=== PATIENT | female | born 1965 | race Caucasian/White ===

== ENCOUNTER 2024-09-22 01:53 | Inpatient (IN) | payer MEDICAID ==
[~2024-09-22] VITALS: Ht 162.6 cm; Wt 65.1 kg
[2024-09-22] VITALS (9 sets, daily range): BP systolic 113–129; BP diastolic 59–64; PULSE 74–103; RESP 0–20; TEMP 97.7–98.3; O2SAT 90–100
[2024-09-22 02:54] LABS: Basophils # (auto) 0.1 10 ^3/uL (0-0.2); Basophils % (auto) 0.6 % (0.0-2.0); Eosinophils # (auto) 0.1 10 ^3/uL (0-0.8); Eosinophils % (auto) 1.3 % (0.0-7.0); Hematocrit 38.7 % (36.0-46.0); Hemoglobin 12.7 g/dL (12.2-16.2); Lymphocytes # (auto) 4.1 10 ^3/uL (0.4-5.4); Lymphocytes % (auto) 42.9 % (10.0-50.0); Mean Corpuscular Hemoglobin 27.5 pg (28.0-32.0); Mean Corpuscular Hgb Conc. 32.8 g/dL (32.0-36.0); Mean Corpuscular Volume 83.8 fL (80.0-100.0); Monocytes # (auto) 0.8 10 ^3/uL (0-1.3); Monocytes % (auto) 8.2 % (0.0-12.0); Neutrophils # (auto) 4.5 10 ^3/uL (1.6-8.6); Platelet Count (auto) 283 10^3/uL (140-450); Red Blood Cells 4.62 10^6/uL (4.0-5.20); Red Cell Distribution Width 16.5 % (11.8-14.3); White Blood Cell 9.7 10^3/uL (4.4-10.8)
--- NOTE | 2024-09-22 02:56 | ED.PDOC ---
HPI Comments 58-year-old female who came to emergency room via EMS for weakness. Patient has had extensive cardiac history, including hypertension, diabetes, [place], status post CABG and cardiac stents. Patient went to [facility] earlier complaining of chest pains and weakness. Diagnostics were made, noted elevated D-dimer and BNP levels. Patient is transferred to this institution for further management. Chief Complaint: General Weakness Time Seen by MD: 02:56 Reviewed Notes: Blood Coordinator Notes Allergies: Coded Allergies: Atorvastatin (Verified Allergy, Unknown, 09/22/24) Information Source: Patient, Emergency Med Personnel Mode of Arrival: EMS Severity: Moderate Timing: Hours Duration: Since onset Prehospital treatment: None Location: Substernal Radiation: No Radiation Quality: Pressure Onset: With Light Exertion Cardiac Risk Factors: HTN, Diabetes PE Risk Factors: None History of: Similar pain in past Associated Signs and Symptoms: SOB Past Medical History PAST MEDICAL HISTORY: DM, HTN, MT Surgical History: CABG, PTCA 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: 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 all 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 Hx Family History Family History: Reviewed,noncontributory to illness Social History Smoker: Non-Smoker Alcohol: Denies ETOH Use Drugs: Denies Drug Use Lives In: Home Constitutional: denies: chills, diaphoresis, fatigue, fever, malaise, sweats, weakness, others EENTM: denies: blurred vision, double vision, ear bleeding, ear discharge, ear drainage, ear pain, ear ringing, eye pain, eye redness, hearing loss, mouth pain, mouth swelling, nasal discharge, nose bleeding, nose congestion, nose pain, photophobia, tearing, throat pain, throat swelling, voice changes, others Respiratory: reports: SOB at rest, shortness of breath; denies: cough, hemoptysis, orthopnea, SOB with excertion, stridor, wheezing, others Cardiovascular: reports: chest pain; denies: dizzy spells, diaphoresis, Dyspnea on exertion, edema, irregular heart beat, left arm pain, lightheadedness, palpitations, PND, syncope, others Gastrointestinal: denies: abdomen distended, abdominal pain, blood streaked bowels, constipated, diarrhea, dysphagia, difficulty swallowing, hematemesis, melena, nausea, poor appetite, poor fluid intake, rectal bleeding, rectal pain, vomiting, others Genitourinary: denies: abnormal vagina bleeding, burning, dyspareunia, dysuria, flank pain, frequency, hematuria, incontinence, pain, , vagina discharge, urgency, others Neurological: denies: dizziness, fainting, headache, left sided numbness, left sided weakness, numbness, paresthesia, pre-existing deficit, right sided numbness, right sided weakness, seizure, speech problems, tingling, tremors, weakness, others Musculoskeletal: denies: back pain, gout, joint pain, joint swelling, muscle pain, muscle stiffness, neck pain, others Integumetry: denies: bruises, change in color, change in hair/nails, dryness, laceration, lesions, lumps, rash, wounds, others Allergic/Immunocompromised: denies: Difficulty Healing, Frequent Infections, Hives, Itching, others Hematologic/Lymphatic: denies: anemia, blood clots, easy bleeding, easy bruising, swollen glands, others Endocrine: denies: excessive hunger, excessive sweating, excessive thirst, excessive urination, flushing, intolerance to cold, intolerance to heat, unex plained weight gain, unexplained weight loss, others Psychiatric: denies: anxiety, bipolar disorder, depression, hopeless, panic disorder, schizophrenia, sleepless, suicidal, others Physical Exam General Appearance: No Apparent Distress, Normal HEENT: Normal ENT Inspection, Pharynx Normal, TMs Normal Neck: Full Range of Motion, Non-Tender, Normal, Normal Inspection Respiratory: Chest Non-Tender, Lungs Clear, No Accessory Muscle Use, No Respiratory Distress, Normal Breath Sounds Cardiovascular: No Edema, No JVD, No Murmur, No Gallop, Normal Peripheral Pulses, Regular Rate/Rhythm Breast Exam: Deferred Gastrointestinal: No Organomegaly, Non Tender, No Pulsatile Mass, Normal Bowel Sounds, Soft Genitalia: Deferred Pelvic: Deferred Rectal: Deferred Extremities: No calf tenderness, Normal capillary refill, Normal inspection, Normal range of motion, Non-tender, No pedal edema Musculoskeletal : Apperance: Normal Neurologic: Alert, open source developer II-XII nml as Tested, No Motor Deficits, Normal Affect, Normal Mood, No Sensory Deficits Cerebellar Function: Normal Reflexes: Normal Skin: Dry, Normal Color, Warm Lymphatic: No Adenopathy EKG EKG : Pulse Rate (adult): 77 Cardiac Rhythm: NSR Hypertrophy: LAE, LAI Was a procedure done? Was a procedure done?: No CP Differential Dx Differential Diagnosis: Angina, Anxiety / Panic Attack Differential Diagnosis: CHF Differential Diagnosis: Angina, Chest Wall Pain, Costochondritis, Esophageal r eflux/spasm, Gastritis, Myocardial Infarction X-Ray, Labs, Meds, VS Vital Signs Date Time Temp Pulse Resp B/P (MAP) Pulse Ox O2 Delivery O2 Flow Rate FiO2 09/22/24 04:45 86 16 105/55 (72) 95 09/22/24 04:00 89 09/22/24 04:00 89 18 98/48 (65) 99 09/22/24 03:38 74 16 99 Room Air* 0 21 09/22/24 02:56 77 09/22/24 02:30 98.1 74 16 94/51 (65) 99 98.1 09/22/24 02:13 77 09/22/24 02:00 98.7 77 20 98/67 (77) 99 Lab Test 09/22/24 03:37 09/22/24 02:40 Range/Units Troponin I High Sensitivity 56 *H 66 *H </=34 ng/L White Blood Count 9.7 4.4-10.8 10^3/uL Red Blood Count 4.62 4.0-5.20 10^6/uL Hemoglobin 12.7 12.2-16.2 g/dL Hematocrit 38.7 36.0-46.0 % Mean Corpuscular Volume 83.8 80.0-100.0 fL Mean Corpuscular Hemoglobin 27.5 L 28.0-32.0 pg Mean Corpuscular Hemoglobin Concent 32.8 32.0-36.0 g/dL Red Cell Distribution Width 16.5 H 11.8-14.3 % Platelet Count 283 140-450 10^3/uL Mean Platelet Volume 8.8 6.9-10.8 fL Neutrophils (%) (Auto) 47.0 37.0-80.0 % Lymphocytes (%) (Auto) 42.9 10.0-50.0 % Monocytes (%) (Auto) 8.2 0.0-12.0 % Eosinophils (%) (Auto) 1.3 0.0-7.0 % Basophils (%) (Auto) 0.6 0.0-2.0 % Neutrophils # (Auto) 4.5 1.6-8.6 10 ^3/uL Lymphocytes # (Auto) 4.1 0.4-5.4 10 ^3/uL Monocytes # (Auto) 0.8 0-1.3 10 ^3/uL Eosinophils # (Auto) 0.1 0-0.8 10 ^3/uL Basophils # (Auto) 0.1 0-0.2 10 ^3/uL Nucleated Red Blood Cells 0.0 % Sodium Level 139 136-145 mmol/L Potassium Level 3.6 3.5-5.1 mmol/L Chloride Level 106 98-107 mmol/L Carbon Dioxide Level 21 20-31 mmol/L Anion Gap 12 5-15 Blood Urea Nitrogen 15 9-23 mg/dL Creatinine 1.08 H 0.550-1.02 mg/dL Glomerular Filtration Rate Calc 59 >90 mL/min BUN/Creatinine Ratio 13.9 10.0-20.0 Serum Glucose 139 H 74-106 mg/dL Calcium Level 10.8 H 8.7-10.4 mg/dL B-Type Natriuretic Peptide 566.28 0-100 pg/mL Time of 1ST Reevaluation: 02:52 Reevaluation 1ST: Unchanged Patient Education/Counseling: Diagnosis, Treatment Family Education/Counseling: No Family Present Departure 1 Departure Time of Disposition: 04:59 (Patient presented with chest pain that was concerning for possible STEMI, ACS, PE, Pneumonia, Muscle Strain, COPD, Dissection. Data: 1. I ordered and reviewed the result of at least 3 labs including a CBC, BMP, and Troponin. 2. I independently interpreted the following tests: EKG which shows sinus arrhythmia and Chest X-ray which shows benign chest.Risk:This patient has a high risk of morbidity due to further diagnostic testing or treatment and may suffer from an acute cardiac or respiratory disorder. Workup reveals concern for ACS and patient should be admitted for further workup and possible expert consultation. ) Impression: Primary Impression: Acute chest pain Additional Impressions: Shortness of breath Generalized weakness Disposition: ADMITTED INPATIENT Admit to: Med Surg Condition: Serious Critical Care Note Critical Care Time?: Yes (35 min-critical care time only) Critical care comment: Acute chest pain Authorized and Performed by: Natalio Fish MD Total critical care time: Approximately 38 minutes Due to a high probability of clinically significant, life threatening deterioration, the patient required my highest level of preparedness to intervene emergently and I personally spent this critical care time directly and personally managing the patient. This critical care time included obtaining a history; examining the patient; pulse oximetry; ordering and review of studies; arranging urgent treatment with development of a management plan; evaluation of patient's response to treatment; frequent reassessment; and, discussions with other providers. This critical care time was performed to assess and manage the high probability of imminent, life-threatening deterioration that could result in multi-organ failure. It was exclusive of separately billable procedures and treating other patients and teaching time. Please see my other sections and the rest of the note for further information on patient assessment and treatment. Stability Stability form required: No Heart Score Heart Score: Heart Score Response (Comments) Value History Moderate Suspicious 1 EKG Repolarization Disturb 1 Age 45-64 1 Risk Factors >3 or Hx ASHD 2 Troponin Normal limit 0 Total 5 I personally scribed for NATALIO FISH MD ([email or web address]) on 09/22/24 at 02:56. Electronically submitted by Amish Morris ([facility]). NATALIO FISH MD Sep 22, 2024 02:56
[2024-09-22 04:10] LABS: Chloride 106 mmol/L (98-107); Potassium 3.6 mmol/L (3.5-5.1); Sodium 139 mmol/L (136-145)
[2024-09-22 04:11] LABS: Anion Gap 12 (5-15); Carbon Dioxide 21 mmol/L (20-31)
[2024-09-22 04:16] LABS: BUN/Creatinine Ratio 13.9 (10.0-20.0); Blood Urea Nitrogen 15 mg/dL (9-23)
[2024-09-22 04:17] LABS: Calcium 10.8 mg/dL (8.7-10.4); Glucose 139 mg/dL (74-106)
--- NOTE | 2024-09-22 04:34 | DVH ---
CHEST RADIOGRAPH Indication: chest pain Technique: Single frontal view of the chest was obtained Comparison: 09/21/2024 FINDINGS: Lines and Tubes: None Lungs: No focal consolidation. Pleura: No effusion. No pneumothorax. Cardiomediastinal contours: Unremarkable Bones: No acute osseous abnormality. Status post median sternotomy. IMPRESSION: 1. No acute cardiopulmonary disease.
[2024-09-22] MEDS ORDERED: DEXTROSE (50%) 50ML SYRG IV PRN (09:15)
[2024-09-22] MEDS ORDERED: ONDANSETRON HCL 4 MG/2 ML VIAL IV PRN (09:15)
[2024-09-22] MEDS ORDERED: MORPHINE SULFATE 4 MG/ML SYR/VIAL IV PRN (09:15)
--- NOTE | 2024-09-22 09:34 | DVHHP2 ---
History of Present Illness Reason for Visit: Chest pain History of Present Illness Shanna Francis is a 58-year-old female with past medical history of hypertension, hyperlipidemia, diabetes, [place] status post CABG x3 PTCA in 2023 at [facility] who presents to the ED for chest pain x1 day and general weakness. Patient was at [facility] [place] and was transferred over to [facility]. Patient reports pain 7/10 intermittent and pressure-like. Patient reports that she had taken some nitro at her physician's office with some relief. Patient also reports that she has a manager medical writing in [place] in his appointment next month. Patient denies any shortness of breath, abdominal pain, nausea, vomiting, diarrhea, fever, chills, lightheadedness, and dizziness. Cardiovascular: CHF, HTN, [place], hyperipidemia Endocrine: Diabetes Past Medical History Peripheral neuropathy Past Surgical History: CABG Family History: None Smoke: <1 pack per day ALCOHOL: none Drugs: None Lives: with Family Domestic Violence: Neg Review of Systems Constitutional: Yes: Weakness; No: Fever, Chills, Sweats, Malaise, Other Eyes: No: Pain, Vision change, Conjunctivae inflammation, Eyelid inflammation, Other, Redness ENT: No: Ear pain, Ear discharge, Nose pain, Nose discharge, Nose congestion, Mouth pain, Mouth swelling, Throat pain, Throat swelling, Other Respiratory: No: Cough, Dry, Shortness of breath, SOB with excertion, Wheezing, Hemoptysis, Pleuritic Pain, Sputum, Wheezing, Other Cardiovascular: Chest Pain; No: Palpitations, Orthopnea, Paroxysmal Noc. Dyspnea, Edema, Lt Headedness, Other Gastrointestinal: No: Nausea, Vomiting, Abdominal Pain, Diarrhea, Constipation, Melena, Hematochezia, Other Genitourinary: No Dysuria, No Frequency, No Incontinence, No Hematuria, No Retention, No Other Musculoskeletal: No: other, neck pain, shoulder pain, arm pain, back pain, hand pain, leg pain, foot pain Skin: No: Rash, Lesions, Jaundice, Bruising, Other Neurological: No: Weakness, Numbness, Incoordination, Change in speech, Confusion, Seizures, Other Allergies: Coded Allergies: Atorvastatin (Verified Allergy, Unknown, 09/22/24) Exam Vital Signs Vital Signs Date Time Temp Pulse Resp B/P (MAP) Pulse Ox O2 Delivery O2 Flow Rate FiO2 09/22/24 06:00 74 16 97/57 (70) 98 09/22/24 03:38 Room Air* 0 21 09/22/24 02:30 98.1 98.1 General Appearance: Alert, Oriented X3, Cooperative, No acute distress HEENT: Atraumatic, PERRLA, EOMI, Mucous membr. moist/pink Respiratory: Normal air movement Cardiovascular: Regular rate, Normal S1, Normal S2, No murmurs Abdominal: Normal bowel sounds, Soft, No tenderness, No hepatospenomegaly, No masses Extremities: No clubbing, No cyanosis, No edema, Normal pulses, No tenderness/swelling Skin: No rashes, No breakdown, No significant lesion Neuro: Normal gait, Normal speech, Strength at 5/5 X4 ext, Normal tone, Sensation intact Psych/Mental Status: Mental status NL, Mood NL Labs/Xrays Labs Test 09/22/24 05:47 09/22/24 02:40 Range/Units Troponin I High Sensitivity 59 *H </=34 ng/L White Blood Count 9.7 4.4-10.8 10^3/uL Red Blood Count 4.62 4.0-5.20 10^6/uL Hemoglobin 12.7 12.2-16.2 g/dL Hematocrit 38.7 36.0-46.0 % Mean Corpuscular Volume 83.8 80.0-100.0 fL Mean Corpuscular Hemoglobin 27.5 L 28.0-32.0 pg Mean Corpuscular Hemoglobin Concent 32.8 32.0-36.0 g/dL Red Cell Distribution Width 16.5 H 11.8-14.3 % Platelet Count 283 140-450 10^3/uL Mean Platelet Volume 8.8 6.9-10.8 fL Neutrophils (%) (Auto) 47.0 37.0-80.0 % Lymphocytes (%) (Auto) 42.9 10.0-50.0 % Monocytes (%) (Auto) 8.2 0.0-12.0 % Eosinophils (%) (Auto) 1.3 0.0-7.0 % Basophils (%) (Auto) 0.6 0.0-2.0 % Neutrophils # (Auto) 4.5 1.6-8.6 10 ^3/uL Lymphocytes # (Auto) 4.1 0.4-5.4 10 ^3/uL Monocytes # (Auto) 0.8 0-1.3 10 ^3/uL Eosinophils # (Auto) 0.1 0-0.8 10 ^3/uL Basophils # (Auto) 0.1 0-0.2 10 ^3/uL Nucleated Red Blood Cells 0.0 % Sodium Level 139 136-145 mmol/L Potassium Level 3.6 3.5-5.1 mmol/L Chloride Level 106 98-107 mmol/L Carbon Dioxide Level 21 20-31 mmol/L Anion Gap 12 5-15 Blood Urea Nitrogen 15 9-23 mg/dL Creatinine 1.08 H 0.550-1.02 mg/dL Glomerular Filtration Rate Calc 59 >90 mL/min BUN/Creatinine Ratio 13.9 10.0-20.0 Serum Glucose 139 H 74-106 mg/dL Calcium Level 10.8 H 8.7-10.4 mg/dL B-Type Natriuretic Peptide 566.28 0-100 pg/mL CHEST RADIOGRAPH Indication: chest pain Technique: Single frontal view of the chest was obtained Comparison: 09/21/2024 FINDINGS: Lines and Tubes: None Lungs: No focal consolidation. Pleura: No effusion. No pneumothorax. Cardiomediastinal contours: Unremarkable Bones: No acute osseous abnormality. Status post median sternotomy. IMPRESSION: 1. No acute cardiopulmonary disease. Assessment/Plan Assessment/Plan Assessment/Plan: Chest pain rule out cardiac ischemia Labs Chest x-ray noted Tropes BNP EKG Lasix UDS TSH Lipid Echo Cardiology consult Strict Is&Os GDMT for heart failure Daily weights Fluid restriction ACS protocol Dual antiplatelet therapy and lipid-lowering agent Nuclear stress test per Cardiology Diabetes type 2 Hemoglobin A1c ISS and Accu-Cheks Chronic hypertension Continue home medications Chronic hyperlipidemia continue home medications History of CHF Continue home medications Tobacco use Counseled patient on cessation of tobacco Offered nicotine patch, patient declined FEN/PPX cardiac diet hl DVT prophylaxis-not indicated patient ambulating PUD prophylaxis Protonix home medications reconciled discussed plan of care with patient and nurse Admit to tele Plan discussed with: Patient My Orders Orders - YULIANA AMOS BUSINESS SYSTEMS ADMINISTRATOR Procedure Category Date Status Time Furosemide Injection PHA 09/22/24 Transmitted (Lasix Injection) 10:00 Code Status CODE 09/22/24 Transmitted 09:06 Vital Signs MIRIAM 09/22/24 Transmitted 09:06 Color Developer MIRIAM 09/22/24 Transmitted 09:06 Morphine Sulfate PHA 09/22/24 Transmitted Injection 09:15 Complete Blood Count LAB 09/23/24 Verified 04:00 Comprehensive LAB 09/23/24 Verified Metabolic Panel 04:00 Magnesium LAB 09/23/24 Verified 04:00 Echo 2d Mode Cardiac US 09/22/24 Transmitted DOP 09:06 Ondansetron Hcl PHA 09/22/24 Transmitted (Zofran) 09:15 Electrocardigram EKG 09/23/24 Transmitted 04:00 Troponin-I Hs LAB 09/22/24 Transmitted 09:06 Cardiac MIRIAM 09/22/24 Transmitted Rehabilitation - Outpa Admit ADMIT 09/22/24 Transmitted 09:06 Npo Except For MIRIAM 09/22/24 Transmitted Medications 09:06 * Cardiology Consult CONS 09/22/24 Transmitted 09:06 Drug Screen LAB 09/22/24 Transmitted 09:06 Thyroid Stimulating LAB 09/22/24 Transmitted Hormone 09:06 Lipid Panel LAB 09/22/24 Transmitted 09:06 Hemoglobin A1c LAB 09/22/24 Transmitted 09:06 Glucose Blood PHA 09/22/24 Transmitted (Accu-Chek Comfort 11:30 Mild Sliding Scale PHA 09/22/24 Transmitted 11:30 Dextrose 50% Syringe PHA 09/22/24 Transmitted 09:15 Date of Service: Sep 22, 2024 Billing Provider: YULIANA AMOS Common Visit Codes: [id number] INP/OBS CARE (HIGH) YULIANA AMOS Sep 22, 2024 09:34
[2024-09-22 09:54] LABS: Triglycerides 115 mg/dL (< 150)
[2024-09-22 09:55] LABS: LDL Cholesterol 60 mg/dL (< 100)
[2024-09-22 09:56] LABS: Cholesterol 117 mg/dL (< 200); HDL Cholesterol 41 mg/dL (40-59)
[2024-09-22 10:43] LABS: Amphetamine Screen, Urine Neg (NEGATIVE)
[2024-09-22 10:44] LABS: Benzodiazephine Screen, Urine Neg (NEGATIVE)
[2024-09-22 10:45] LABS: Opiate Scree,Urine Neg (NEGATIVE)
[2024-09-22] MEDS: FUROSEMIDE 40 MG/4 ML VIAL IV SCH ×2 (10:46→18:03)
[2024-09-22 10:51] LABS: Barbiturate Scree,Urine Neg (NEGATIVE); Cannabinoid Screen, Urine Neg (NEGATIVE); Cocaine Screen, Urine Neg (NEGATIVE); Phencyclidine Screen, Urine Neg (NEGATIVE)
--- NOTE | 2024-09-22 11:29 | DVHINCON2 ---
Date Seen: Sep 22, 2024 Referring Physician DARLIN Whitaker Reason for Consultation chest pain, PTCA X 3 CHE History of Present Illness This is a 58-year-old female patient who presents to the emergency room with chief complaint of chest pain. The patient reports that the chest began yesterday. She states that she went to Dr. Hoffman's walk-in clinic in [place] for further assessment. From there, she was transferred to [facility]. She has now been transferred to this facility for higher level of care. She describes the chest pain as unprovoked, pressure-like in nature, midsternal with radiation to the left side of her chest as well as down her left arm. Associated symptoms include shortness of breath. Initial twelve lead electrocardiogram reveals normal sinus rhythm with left bundle branch block and Q-waves seen in anterior leads. Initial troponin level of 66ng/L with down trend thereafter. Significant past medical history includes severe coronary artery disease status post triple-vessel CABG, multiple PTCAs x3 CHE (on ASA/Plavix), congestive heart failure, history myocardial infarction, hyperlipidemia, type 2 diabetes mellitus, peripheral neuropathy, and tobacco use. The patient reports that she follows up with a insole rounder in the outpatient setting at [facility]. She reports that she has a follow up appointment pending on October 10, 2024 to discuss possible ICD implantation. Past Medical History Past medical history reviewed. No other significant than mentioned above. Past Surgical History Triple-vessel CABG in October 2023 Family History Family history reviewed. Social History The patient has a 25 pack-year history, states she occasionally smokes "a few cigarettes per week" now Patient denies any illicit drug use Patient denies any alcohol use Allergies: Coded Allergies: Atorvastatin (Verified Allergy, Unknown, 09/22/24) Home Meds Home medications reviewed. Current Medications Current Medications Medications (Trade) Dose Ordered Sig/Jarett Route PRN Reason Start Time Stop Time Status Last Admin Furosemide (Lasix Injection) 40 mg DAILY IV 09/22/24 10:00 09/22/24 10:46 Morphine Sulfate 2 mg Q30MP PRN IV FOR CHEST PAIN 09/22/24 09:15 Ondansetron HCl (Zofran) 4 mg Q4HP PRN IV NAUSEA / VOMITING 09/22/24 09:15 Diagnostic Test (Pha) (Accu-Chek Comfort Curve T) 1 strip ACHS 09/22/24 11:30 Insulin Human Regular (InsuLIN R) ACHS SC 09/22/24 11:30 Dextrose 50 ml UD PRN IV Blood Sugar LESS THAN 60 09/22/24 09:15 Review of Systems Constitutional: No symptom reported Ears, Nose, & Throat: No symptom reported Eyes: No symptom reported Neurological: No symptoms reported Pulmonary/Respiratory: Shortness of breath Cardiovascular: Chest pain Gastrointestinal: No symptom reported Genitourinary: No symptom reported Musculoskeletal: No symptom reported Skin: No symptom reported Psychiatric: No symptom reported Endocrine: No symptom reported Hematologic/Lymphatic: No symptom reported Vital Signs Vital Signs Date Time Temp Pulse Resp B/P (MAP) Pulse Ox O2 Delivery O2 Flow Rate FiO2 09/22/24 10:46 103/58 09/22/24 09:44 84 16 99 Room Air* 0 21 09/22/24 09:41 98.4 98.4 Physical Exam General Appearance: Cooperative. Well-developed. Well-nourished. No acute distress. Pulmonary/Respiratory: Clear, bilateral breaths sounds. Cardiovascular/Chest: Regular rate and rhythm. Peripheral Pulses: 2+ Radial (R). 2+ Radial (L). 2+ Pedal (R). 2+ Pedal (L) Abdominal Exam: Normal bowel sounds. Ankle Exam: Negative ankle edema Lower extremities: Negative lower extremity edema Neuro/Mental Status: A/OX4, coherent. Thoughts/Psych: Normal thought pattern. Appropriate mood and affect. Good judgment and insight. Appearance: No acute distress. Skin Exam: Normal inspection. Normal color. Warm and dry. Labs/Diagnostic Data Labs Test 09/22/24 09:48 09/22/24 05:47 09/22/24 02:40 Range/Units Urine Opiates Screen Neg NEGATIVE Urine Fentanyl Screen Neg NEGATIVE Urine Barbiturates Screen Neg NEGATIVE Urine Phencyclidine Screen Neg NEGATIVE Urine Amphetamines Screen Neg NEGATIVE Urine Benzodiazepines Screen Neg NEGATIVE Urine Cocaine Screen Neg NEGATIVE Urine Cannabinoids Screen Neg NEGATIVE Troponin I High Sensitivity 59 *H </=34 ng/L White Blood Count 9.7 4.4-10.8 10^3/uL Red Blood Count 4.62 4.0-5.20 10^6/uL Hemoglobin 12.7 12.2-16.2 g/dL Hematocrit 38.7 36.0-46.0 % Mean Corpuscular Volume 83.8 80.0-100.0 fL Mean Corpuscular Hemoglobin 27.5 L 28.0-32.0 pg Mean Corpuscular Hemoglobin Concent 32.8 32.0-36.0 g/dL Red Cell Distribution Width 16.5 H 11.8-14.3 % Platelet Count 283 140-450 10^3/uL Mean Platelet Volume 8.8 6.9-10.8 fL Neutrophils (%) (Auto) 47.0 37.0-80.0 % Lymphocytes (%) (Auto) 42.9 10.0-50.0 % Monocytes (%) (Auto) 8.2 0.0-12.0 % Eosinophils (%) (Auto) 1.3 0.0-7.0 % Basophils (%) (Auto) 0.6 0.0-2.0 % Neutrophils # (Auto) 4.5 1.6-8.6 10 ^3/uL Lymphocytes # (Auto) 4.1 0.4-5.4 10 ^3/uL Monocytes # (Auto) 0.8 0-1.3 10 ^3/uL Eosinophils # (Auto) 0.1 0-0.8 10 ^3/uL Basophils # (Auto) 0.1 0-0.2 10 ^3/uL Nucleated Red Blood Cells 0.0 % Sodium Level 139 136-145 mmol/L Potassium Level 3.6 3.5-5.1 mmol/L Chloride Level 106 98-107 mmol/L Carbon Dioxide Level 21 20-31 mmol/L Anion Gap 12 5-15 Blood Urea Nitrogen 15 9-23 mg/dL Creatinine 1.08 H 0.550-1.02 mg/dL Glomerular Filtration Rate Calc 59 >90 mL/min BUN/Creatinine Ratio 13.9 10.0-20.0 Serum Glucose 139 H 74-106 mg/dL Hemoglobin A1c 7.5 H <5.7 % A1C Calcium Level 10.8 H 8.7-10.4 mg/dL B-Type Natriuretic Peptide 566.28 0-100 pg/mL Triglycerides Level 115 < 150 mg/dL Cholesterol Level 117 < 200 mg/dL LDL Cholesterol 60 < 100 mg/dL HDL Cholesterol 41 40-59 mg/dL Thyroid Stimulating Hormone (TSH) 0.01 L 0.55-4.78 uIU/mL Assessment Chest pain, rule out progressive coronary artery disease Severe coronary artery disease status post triple-vessel CABG in 2023 Multiple PTCAs x3 CHE (on Plavix/aspirin) Acute on chronic decompensated HFrEF, NYHA class III Mitral valve regurgitation, moderate to severe degree Tricuspid valve regurgitation, mild to moderate degree History myocardial infarction Hyperlipidemia Type 2 diabetes mellitus Tobacco use Plan/Recommendation We will continue with the following plan/recommendations (): * Transthoracic echocardiogram reveals EF 20% * Initiate guideline directed medical therapy for CHF (as tolerated by BP) * Strict intake and output, daily weights, maintain fluid restriction * Chest pain protocol * TAINA score: 5 points * HEART score: 5 points * Continue dual antiplatelet therapy and lipid-lowering agent * Nuclear stress test Patient seen and examined at bedside with . Given the patient's cardiac history and clinical presentation, we will recommend for the patient to undergo a Cardiolite stress test. Procedure explained to patient and she is agreeable. We will schedule the patient at soonest availability. Thank you for allowing us to care for this patient. Please call with any questions or concerns. Critical care time spent: 42 minutes This medical document was created using an electronic medical record system with voice recognition software and computerized dictation system. Although this document has been carefully reviewed, there might still be some phonetic and typographical errors. Occasional wrong-word or ``sound-alike substitutions may have occurred due to the inherent limitations of voice recognition software. These areas are purely typographical due to imperfections of the software programs and do not reflect any compromise in the patient's medical care. Please read the chart carefully and recognize, using context, where these substitutions have occurred. Plan discussed with: Patient NYHA Physical activity limitations: Class3(Marked) ordinary (activity causes symtoms) Date of Service: Sep 22, 2024 Billing Provider: GINGER CORONA MD Cardiology Common Codes: [id number] INP/OBS CARE (High) Cardiology Consultation Codes: [id number] CONSULT <45MIN PJ CONNER Sep 22, 2024 11:29
[2024-09-22] MEDS: ACCU-CHEK COMFORT CURVE STRIP VI SCH (11:58)
[2024-09-22] MEDS: InsuLIN REG 1unit/0.01ml Soln (100units/ml) SC SCH (12:05)
--- NOTE | 2024-09-22 13:03 | DVHSR ---
APPROVED REPORT EXAM: Two-dimensional and M-mode echocardiogram with Doppler and color Doppler. Blood Pressure: 97/57 mmHg INDICATION Chest Pain RISK FACTORS Height: 64, Weight: 133 DIMENSIONS LVDd5.8 (3.8-5.7cm)LA (2D)4.2 (1.9-4.0cm)Aortic Root3.0 (2.0-3.7cm) LVDs5.1 (2.5-4.0cm)LA (MM) (1.9-4.0cm)Aortic Cusp Exc1.6 (1.5-2.0cm) EF (%) 25.0 (55-70%)Rt. Atrium3.1 (1.9-4.0cm)Asc. Aorta cm IVSd1.0 (0.7-1.1cm)RV (D) (1.8-2.4cm) PWd0.9 (0.7-1.1cm) Mitral Valve MitralMitral Stenosis E wave1.19m/sMV Mean GR.mmHg A wavem/sMV Peak GR.82mmHg E/A ratio0.02D MVAcm2 Aortic Valve Aortic ValveAortic Stenosis V10.63m/Blaire Mean GR.2mmHg V20.88m/Blaire Peak GR.3mmHg LVOT Diameter2.1 (1.8-2.4cm)Doppler AVA2.48cm2 Pulmonic Valve V20.67m/s Tricuspid Valve TR Velocity3.08m/s [id number] LEFT VENTRICLE The Left Ventricle is mildly dilated. There is normal left ventricular wall thickness. Left ventricle systolic function is severely reduced, LVEF is 20%. Tissue Doppler imaging reveals mo derate diastolic dysfunction. There is global hypokinesis of the left ventricle. RIGHT VENTRICLE The right ventricle is mildly dilated. Systolic function is moderately reduced. ATRIA The left atrium is mildly dilated. The right atrium size is normal. MITRAL VALVE The mitral valve is grossly normal. Mitral regurgitation is moderate to severe. PULMONIC VALVE The pulmonic valve is normal in structure and function. There is trace pulmonic valvular regurgitation. TRICUSPID VALVE The tricuspid valve is grossly normal. There is mild to moderate tricuspid regurgitation. AORTIC VALVE The aortic valve is trileaflet. No aortic regurgitation is present. GREAT VESSELS The aortic root is normal size. PERICARDIAL EFFUSION There is no pericardial effusion. Conclusion The Left Ventricle is mildly dilated. There is normal left ventricular wall thickness. Left ventricle systolic function is severely reduced, LVEF is 20%. Tissue Doppler imaging reveals moderate diastol ic dysfunction. There is global hypokinesis of the left ventricle. The right ventricle is mildly dilated. RV systolic function is moderately reduced. The left atrium is mildly dilated. Mitral regurgitation is moderate to severe. There is mild to moderate tricuspid regurgitation. IVC is not dilated and collapses < 50% with inspiration. There is no pericardial effusion.
[2024-09-22] MEDS: CLOPIDOGREL BISULFATE 75 MG TAB PO ONE (13:52)
[2024-09-22] MEDS: ASPirin 81 mg TAB PO ONE (13:53)
[2024-09-22] MEDS ORDERED: GAB100C PO (14:14)
[2024-09-22] MEDS ORDERED: SENN-105 (14:14)
[2024-09-22] MEDS ORDERED: FURO20TA4 PO (14:14)
[2024-09-22] MEDS ORDERED: ROSU40TA47 (14:14)
[2024-09-22] MEDS ORDERED: GABAPENTIN 100 MG CAP PO SCH (22:00)
[2024-09-22] MEDS ORDERED: ROSUVASTATIN 40MG TABLET PO SCH (22:00)
[2024-09-22] MEDS: GABAPENTIN 100 MG CAP PO SCH (22:18)
[2024-09-23] VITALS (7 sets, daily range): BP systolic 92–118; BP diastolic 40–63; PULSE 84–117; RESP 15–19; TEMP 97.8–98.5; O2SAT 92–99
[2024-09-23] MEDS: ASPirin 81 mg TAB PO SCH (09:21)
[2024-09-23] MEDS: EMPAGLIFLOZIN 10 MG TAB PO SCH (09:22)
[2024-09-23] MEDS: CLOPIDOGREL BISULFATE 75 MG TAB PO SCH (09:22)
[2024-09-23] MEDS: PANTOPRAZOLE 40 MG/10 ML VIAL INJ IV SCH (09:22)
[2024-09-23 11:30] LABS: Basophils # (auto) 0 10 ^3/uL (0-0.2); Basophils % (auto) 0.3 % (0.0-2.0); Eosinophils # (auto) 0.1 10 ^3/uL (0-0.8); Eosinophils % (auto) 1.5 % (0.0-7.0); Hematocrit 35.3 % (36.0-46.0); Hemoglobin 11.7 g/dL (12.2-16.2); Lymphocytes # (auto) 1.8 10 ^3/uL (0.4-5.4); Mean Corpuscular Hemoglobin 27.5 pg (28.0-32.0); Mean Corpuscular Volume 83.3 fL (80.0-100.0); Monocytes # (auto) 0.8 10 ^3/uL (0-1.3); Monocytes % (auto) 10.1 % (0.0-12.0); Neutrophils # (auto) 4.9 10 ^3/uL (1.6-8.6); Neutrophils % (auto) 64.1 % (37.0-80.0); Platelet Count (auto) 262 10^3/uL (140-450); Red Blood Cells 4.24 10^6/uL (4.0-5.20); Red Cell Distribution Width 16.6 % (11.8-14.3); White Blood Cell 7.7 10^3/uL (4.4-10.8)
[2024-09-23 11:44] LABS: Alanine Aminotransferase 21 U/L (7-40); Albumin 4.7 g/dL (3.2-4.8); Alkaline Phosphatase 86 U/L (46-116); Anion Gap 10 (5-15); Aspartate Aminotransferase 21 U/L (13-40); BUN/Creatinine Ratio 10.9 (10.0-20.0); Blood Urea Nitrogen 12 mg/dL (9-23); Carbon Dioxide 24 mmol/L (20-31); Chloride 103 mmol/L (98-107); Sodium 137 mmol/L (136-145)
[2024-09-23 11:45] LABS: Bilirubin, Total 0.5 mg/dL (0.2-1.0); Total Protein 7.7 g/dL (5.7-8.2)
[2024-09-23 11:47] LABS: Glucose 208 mg/dL (74-106); Magnesium 2.6 mg/dL (1.6-2.6)
--- NOTE | 2024-09-23 12:17 | DVHPN2 ---
Consult Progress Note Subjective Other Systems: Patient remains in normal sinus rhythm on dip unit operator. Patient denies any cardiac symptoms at time of assessment. Objective vital signs Vital Sign Date Time Temp Pulse Resp B/P (MAP) Pulse Ox O2 Delivery O2 Flow Rate FiO2 09/23/24 09:00 98.5 97 15 100/60 (73) 99 98.5 09/22/24 20:00 Room Air* 0 21 Total Intake and Output 09/22/24 09/22/24 09/23/24 15:00 23:00 07:00 Intake Total 250 ml 800 ml Output Total 1000 ml Balance 250 ml -200 ml medications Current Medications Medications Dose Ordered Sig/Jarett Route Start Time Stop Time Status Last Admin Dose Admin Morphine Sulfate 2 mg Q30MP PRN IV 09/22/24 09:15 Ondansetron HCl 4 mg Q4HP PRN IV 09/22/24 09:15 Diagnostic Test (Pha) 1 strip ACHS 09/22/24 11:30 09/23/24 11:10 1 STRIP Insulin Human Regular ACHS SC 09/22/24 11:30 09/23/24 11:10 3 UNITS Dextrose 50 ml UD PRN IV 09/22/24 09:15 Clopidogrel Bisulfate 75 mg DAILY PO 09/23/24 10:00 09/23/24 09:22 75 MG Aspirin 81 mg DAILY PO 09/23/24 10:00 09/23/24 09:21 81 MG Patient Own Medication 1 HS PO 09/22/24 22:00 Hold Empaglifozin 10 mg DAILY PO 09/23/24 10:00 09/23/24 09:22 10 MG Pantoprazole Sodium 40 mg DAILY IV 09/23/24 10:00 09/23/24 09:22 40 MG Furosemide 40 mg BIDD IV 09/22/24 18:00 09/23/24 06:08 40 MG Gabapentin 200 mg BID PO 09/22/24 22:00 09/23/24 09:22 200 MG Examination: GENERAL:Normal, LUNGS:Normal, CVS:Normal, NEURO:Normal laboratory and microbiology Laboratory Tests 09/23/24 10:23 Test 09/23/24 10:23 Range/Units Serum Glucose 208 H 74-106 mg/dL Problem List/Assessment/Plan Problem List/Assessment/Plan Chest pain, rule out progressive coronary artery disease Severe coronary artery disease status post triple-vessel CABG in 2023 Multiple PTCAs x3 CHE (on Plavix/aspirin) Acute on chronic decompensated HFrEF, NYHA class III Mitral valve regurgitation, moderate to severe degree Tricuspid valve regurgitation, mild to moderate degree History myocardial infarction Hyperlipidemia Type 2 diabetes mellitus Tobacco use Plan/Recommendation (): * Transthoracic echocardiogram reveals EF 20% * Initiate guideline directed medical therapy for CHF (as tolerated by BP) * Strict intake and output, daily weights, maintain fluid restriction * Chest pain protocol * TAINA score: 5 points * HEART score: 5 points * Continue dual antiplatelet therapy and lipid-lowering agent * Nuclear stress test Patient seen and examined at bedside with . Patient denies any cardiac complaints today. Pending nuclear stress test. Thank you for allowing us to care for this patient. Please call with any questions or concerns. This medical document was created using an electronic medical record system with voice recognition software and computerized dictation system. Although this document has been carefully reviewed, there might still be some phonetic and typographical errors. Occasional wrong-word or ``sound-alike substitutions may have occurred due to the inherent limitations of voice recognition software. These areas are purely typographical due to imperfections of the software programs and do not reflect any compromise in the patient's medical care. Please read the chart carefully and recognize, using context, where these substitutions have occurred. Plan discussed with: Patient Date of Service: Sep 23, 2024 Billing Provider: PJ CONNER Common Visit Codes: [id number] INP/OBS CARE(HIGH) PJ CONNER Sep 23, 2024 12:17
[2024-09-23] MEDS: POTASSIUM EFFERVESENT TAB 25 MEQ PO ONE (17:37)
[2024-09-23] MEDS: HYDROcodone-ACET 5/325MG TAB PO PRN (19:00)
[2024-09-23] MEDS: METOPROLOL TARTRATE 25 MG TAB PO SCH (21:21)
--- NOTE | 2024-09-23 22:52 | DVHPN2 ---
Subjective 09/23 patient is ambulating, may have some component of anxiety and/or possible psychiatric disorder as patient is always OOB, walking gao halls. not complaining of any chest pain, sob , cramer, .cardioogy consulted for r/o NC. Reviewed: H&P Changes from previous H/P or p: No Changes General: Per HPI Musculoskeletal: No other, No neck pain, No shoulder pain, No arm pain, No back pain, No hand pain, No leg pain, No foot pain Skin: No Rash, No Lesions, No Jaundice, No Bruising, No Other Objective Vitals Vital Signs Date Time Temp Pulse Resp B/P (MAP) Pulse Ox O2 Delivery O2 Flow Rate FiO2 09/23/24 21:21 100 105/61 09/23/24 17:00 97.8 17 92 97.8 09/23/24 07:30 Room Air* 0 21 Intake/Output Intake and Output 09/23/24 07:00 Intake Total 1050 ml Output Total 1000 ml Balance 50 ml Intake Oral 1050 ml Output Urine Total 1000 ml # Voids 1 # Bowel Movements 1 Exam systolic murmur 3/6, no rales, no pedal edema, abdomen normal. Medications Current Medications Medications Dose Ordered Sig/Jarett Route Start Time Stop Time Status Last Admin Dose Admin Morphine Sulfate 2 mg Q30MP PRN IV 09/22/24 09:15 Ondansetron HCl 4 mg Q4HP PRN IV 09/22/24 09:15 Diagnostic Test (Pha) 1 strip ACHS 09/22/24 11:30 09/23/24 21:27 1 STRIP Insulin Human Regular ACHS SC 09/22/24 11:30 09/23/24 21:28 7 UNITS Dextrose 50 ml UD PRN IV 09/22/24 09:15 Clopidogrel Bisulfate 75 mg DAILY PO 09/23/24 10:00 09/23/24 09:22 75 MG Aspirin 81 mg DAILY PO 09/23/24 10:00 09/23/24 09:21 81 MG Patient Own Medication 1 HS PO 09/22/24 22:00 Hold Empaglifozin 10 mg DAILY PO 09/23/24 10:00 09/23/24 09:22 10 MG Pantoprazole Sodium 40 mg DAILY IV 09/23/24 10:00 09/23/24 09:22 40 MG Furosemide 40 mg BIDD IV 09/22/24 18:00 09/23/24 17:39 40 MG Gabapentin 200 mg BID PO 09/22/24 22:00 09/23/24 21:16 200 MG Metoprolol Tartrate 12.5 mg BID PO 09/23/24 22:00 09/23/24 21:21 12.5 MG Acetaminophen/ Hydrocodone Bitart 1 tab Q6HPRN PRN PO 09/23/24 19:00 Laboratory Results Laboratory Tests 09/23/24 10:23 Chemistry Test 09/23/24 10:23 Albumin 4.7 g/dL (3.2-4.8) Calcium Level 10.0 mg/dL (8.7-10.4) Magnesium Level 2.6 mg/dL (1.6-2.6) Total Protein 7.7 g/dL (5.7-8.2) LFT Test 09/23/24 10:23 Alanine Aminotransferase (ALT) 21 U/L (7-40) Alkaline Phosphatase 86 U/L (46-116) Aspartate Amino Transferase (AST) 21 U/L (13-40) Total Bilirubin 0.5 mg/dL (0.2-1.0) Labs and/or images reviewed: Labs reviewed by me, Image(s) reviewed by me Assessment/Plan Assessment/Plan 09/23 patient is ambulating, may have some component of anxiety and/or possible psychiatric disorder as patient is always OOB, walking gao halls. not complaining of any chest pain, sob , cramer, .cardioogy consulted for r/o NC. Chest pain, rule out progressive coronary artery disease CAD s/p CABG 2023 and PTCA CHE x3, Acute on chronic decompensated HFrEF, NYHA class III Mitral valve regurgitation, moderate to severe degree Tricuspid valve regurgitation, mild to moderate degree History myocardial infarction -Transthoracic echocardiogram reveals EF 20% - bnp 566, Tn 66>56>59high x3 but stable - cxr w/o signficnt findings - Echo HFrEF 20%, LVDD, global hypokinesis - cards start lasix bid, GDMT, - plan cardiolite stress test. - cont DAPT. hypokalemia - replete prn. nd monitor. Hyperlipidemia - home HIS Type 2 diabetes mellitus - SSI Tobacco use - nicotine patch prn if needed Plan discussed with: Patient Date of Service: Sep 23, 2024 Billing Provider: TO SANDERS MD Common Visit Codes: [id number] INP/OBS CARE(HIGH) TO SANDERS MD Sep 23, 2024 22:52
[2024-09-24] VITALS (9 sets, daily range): BP systolic 88–134; BP diastolic 48–92; PULSE 65–113; RESP 16–19; TEMP 97.6–109; O2SAT 94–99
[2024-09-24 14:25] LABS: Hematocrit 35.2 % (36.0-46.0); Hemoglobin 11.7 g/dL (12.2-16.2); Mean Corpuscular Hemoglobin 27.6 pg (28.0-32.0); Mean Corpuscular Hgb Conc. 33.2 g/dL (32.0-36.0); Mean Corpuscular Volume 83.2 fL (80.0-100.0); Platelet Count (auto) 216 10^3/uL (140-450); Red Blood Cells 4.23 10^6/uL (4.0-5.20); Red Cell Distribution Width 16.5 % (11.8-14.3); White Blood Cell 4.6 10^3/uL (4.4-10.8)
[2024-09-24 14:27] LABS: Band Neutrophils % (manual) 0; Basophils % (manual) 0 (0.0-2.0); Blast Cells 0; Eosinophils % (manual) 0 (0-7); Metamyelocytes % 0; Myelocytes % 0; Promyelocytes % 0; Reactive Lymphocytes 0
[2024-09-24] MEDS: ACETAMINOPHEN 325 MG TAB PO PRN (14:31)
[2024-09-24 14:33] LABS: Alanine Aminotransferase 22 U/L (7-40); Albumin 4.7 g/dL (3.2-4.8); Alkaline Phosphatase 82 U/L (46-116); Anion Gap 10 (5-15); Aspartate Aminotransferase 28 U/L (13-40); BUN/Creatinine Ratio 9.4 (10.0-20.0); Blood Urea Nitrogen 12 mg/dL (9-23); Calcium 10.1 mg/dL (8.7-10.4); Carbon Dioxide 22 mmol/L (20-31); Chloride 103 mmol/L (98-107)
[2024-09-24 14:34] LABS: Bilirubin, Total 0.4 mg/dL (0.2-1.0); Total Protein 7.6 g/dL (5.7-8.2)
[2024-09-24 14:35] LABS: Glucose 190 mg/dL (74-106); Potassium 3.4 mmol/L (3.5-5.1); Sodium 135 mmol/L (136-145)
--- NOTE | 2024-09-24 14:41 | DVHPN2 ---
Consult Progress Note Subjective Other Systems: Patient in normal sinus rhythm at time of assessment. Patient denies any cardiac symptoms at time of assessment, does report new onset cough with phlegm production Objective vital signs Vital Sign Date Time Temp Pulse Resp B/P (MAP) Pulse Ox O2 Delivery O2 Flow Rate FiO2 09/24/24 11:57 113 09/24/24 09:28 95/50 09/24/24 09:00 98.3 18 94 98.3 09/24/24 08:00 Room Air* 0 21 Total Intake and Output 09/23/24 09/23/24 09/24/24 15:00 23:00 07:00 Intake Total 240 ml 1198 ml 400 ml Output Total 1200 ml 800 ml Balance 240 ml -2 ml -400 ml medications Current Medications Medications Dose Ordered Sig/Jarett Route Start Time Stop Time Status Last Admin Dose Admin Morphine Sulfate 2 mg Q30MP PRN IV 09/22/24 09:15 Ondansetron HCl 4 mg Q4HP PRN IV 09/22/24 09:15 Diagnostic Test (Pha) 1 strip ACHS 09/22/24 11:30 09/24/24 11:30 1 STRIP Insulin Human Regular ACHS SC 09/22/24 11:30 09/24/24 11:16 3 UNITS Dextrose 50 ml UD PRN IV 09/22/24 09:15 Clopidogrel Bisulfate 75 mg DAILY PO 09/23/24 10:00 09/24/24 09:27 75 MG Aspirin 81 mg DAILY PO 09/23/24 10:00 09/24/24 09:27 81 MG Patient Own Medication 1 HS PO 09/22/24 22:00 Hold Empaglifozin 10 mg DAILY PO 09/23/24 10:00 09/24/24 09:27 10 MG Pantoprazole Sodium 40 mg DAILY IV 09/23/24 10:00 09/23/24 09:22 40 MG Gabapentin 200 mg BID PO 09/22/24 22:00 09/24/24 09:27 200 MG Metoprolol Tartrate 12.5 mg BID PO 09/23/24 22:00 09/23/24 21:21 12.5 MG Acetaminophen/ Hydrocodone Bitart 1 tab Q6HPRN PRN PO 09/23/24 19:00 09/23/24 19:00 1 TAB Acetaminophen 650 mg Q6HPRN PRN PO 09/24/24 14:00 09/24/24 14:31 650 MG Examination: GENERAL:Normal, LUNGS:Normal, CVS:Normal, NEURO:Normal laboratory and microbiology Laboratory Tests 09/24/24 13:40 Test 09/24/24 13:40 Range/Units Serum Glucose 190 H 74-106 mg/dL Problem List/Assessment/Plan Problem List/Assessment/Plan Chest pain, rule out progressive coronary artery disease Severe coronary artery disease status post triple-vessel CABG in 2023 Multiple PTCAs x3 CHE (on Plavix/aspirin) Acute on chronic decompensated HFrEF, NYHA class III Mitral valve regurgitation, moderate to severe degree Tricuspid valve regurgitation, mild to moderate degree History myocardial infarction Hyperlipidemia Type 2 diabetes mellitus Tobacco use Plan/Recommendation (): * Transthoracic echocardiogram reveals EF 20% * Initiate guideline directed medical therapy for CHF (as tolerated by BP) * Strict intake and output, daily weights, maintain fluid restriction * Chest pain protocol * TAINA score: 5 points * HEART score: 5 points * Continue dual antiplatelet therapy and lipid-lowering agent * Nuclear stress test Patient seen and examined at bedside with . Patient denies any cardiac complaints today. Pending nuclear stress test. Thank you for allowing us to care for this patient. Please call with any questions or concerns. This medical document was created using an electronic medical record system with voice recognition software and computerized dictation system. Although this document has been carefully reviewed, there might still be some phonetic and typographical errors. Occasional wrong-word or ``sound-alike substitutions may have occurred due to the inherent limitations of voice recognition software. These areas are purely typographical due to imperfections of the software programs and do not reflect any compromise in the patient's medical care. Please read the chart carefully and recognize, using context, where these substitutions have occurred. Plan discussed with: Patient Date of Service: Sep 24, 2024 Billing Provider: PJ CONNER Common Visit Codes: [id number] INP/OBS CARE(HIGH) PJ CONNER Sep 24, 2024 14:41
[2024-09-24 15:15] LABS: Lymphocytes % (manual) 44 (10.0-50.0); Monocytes % (manual) 22 (0-12)
[2024-09-24 15:16] LABS: Platelet Estimate Adequate
[2024-09-24 15:58] LABS: COVID19 ANTIGEN SOFIA FIA NEGATIVE (NEGATIVE); Rapid Influenza A Negative (Negative); Rapid Influenza B Negative (Negative)
--- NOTE | 2024-09-24 17:11 | DVHPN2 ---
Subjective Update 09/24 09/23 patient is ambulating, may have some component of anxiety and/or possible psychiatric disorder as patient is always OOB, walking gao halls. not complaining of any chest pain, sob , cramer, .cardioogy consulted for r/o [facility]. 09/24, patient doing well. She has having some sore throat. We will get flu/COVID rapid swabs. Offered Tylenol conservative measures and Chloraseptic spray. Cardiolite test tomorrow per Cardiology. She was asymptomatic chest pain-free. Reviewed: H&P Changes from previous H/P or p: No Changes General: Per HPI Musculoskeletal: No other, No neck pain, No shoulder pain, No arm pain, No back pain, No hand pain, No leg pain, No foot pain Skin: No Rash, No Lesions, No Jaundice, No Bruising, No Other Objective Vitals Vital Signs Date Time Temp Pulse Resp B/P (MAP) Pulse Ox O2 Delivery O2 Flow Rate FiO2 09/24/24 13:00 98.0 89 18 88/48 (61) 97 98.0 09/24/24 08:00 Room Air* 0 21 Intake/Output Intake and Output 09/24/24 07:00 Intake Total 1838 ml Output Total 2000 ml Balance -162 ml Intake Oral 1838 ml Output Urine Total 2000 ml Exam systolic murmur 3/6, no rales, no pedal edema, abdomen normal. Medications Current Medications Medications Dose Ordered Sig/Jarett Route Start Time Stop Time Status Last Admin Dose Admin Morphine Sulfate 2 mg Q30MP PRN IV 09/22/24 09:15 Ondansetron HCl 4 mg Q4HP PRN IV 09/22/24 09:15 Diagnostic Test (Pha) 1 strip ACHS 09/22/24 11:30 09/24/24 11:30 1 STRIP Insulin Human Regular ACHS SC 09/22/24 11:30 09/24/24 11:16 3 UNITS Dextrose 50 ml UD PRN IV 09/22/24 09:15 Clopidogrel Bisulfate 75 mg DAILY PO 09/23/24 10:00 09/24/24 09:27 75 MG Aspirin 81 mg DAILY PO 09/23/24 10:00 09/24/24 09:27 81 MG Patient Own Medication 1 HS PO 09/22/24 22:00 Hold Empaglifozin 10 mg DAILY PO 09/23/24 10:00 09/24/24 09:27 10 MG Pantoprazole Sodium 40 mg DAILY IV 09/23/24 10:00 09/23/24 09:22 40 MG Gabapentin 200 mg BID PO 09/22/24 22:00 09/24/24 09:27 200 MG Metoprolol Tartrate 12.5 mg BID PO 09/23/24 22:00 09/23/24 21:21 12.5 MG Acetaminophen/ Hydrocodone Bitart 1 tab Q6HPRN PRN PO 09/23/24 19:00 09/23/24 19:00 1 TAB Acetaminophen 650 mg Q6HPRN PRN PO 09/24/24 14:00 09/24/24 14:31 650 MG Laboratory Results Laboratory Tests 09/24/24 13:40 Chemistry Test 09/24/24 13:40 Albumin 4.7 g/dL (3.2-4.8) Calcium Level 10.1 mg/dL (8.7-10.4) Total Protein 7.6 g/dL (5.7-8.2) LFT Test 09/24/24 13:40 Alanine Aminotransferase (ALT) 22 U/L (7-40) Alkaline Phosphatase 82 U/L (46-116) Aspartate Amino Transferase (AST) 28 U/L (13-40) Total Bilirubin 0.4 mg/dL (0.2-1.0) Labs and/or images reviewed: Labs reviewed by me, Image(s) reviewed by me Assessment/Plan Assessment/Plan 09/24, patient doing well. She has having some sore throat. We will get flu/COVID rapid swabs. Offered Tylenol conservative measures and Chloraseptic spray. Cardiolite test tomorrow per Cardiology. She was asymptomatic chest pain-free. Chest pain, rule out progressive coronary artery disease CAD s/p CABG 2023 and PTCA CHE x3, Acute on chronic decompensated HFrEF, NYHA class III Mitral valve regurgitation, moderate to severe degree Tricuspid valve regurgitation, mild to moderate degree History myocardial infarction -Transthoracic echocardiogram reveals EF 20% - bnp 566, Tn 66>56>59high x3 but stable - cxr w/o signficnt findings - Echo HFrEF 20%, LVDD, global hypokinesis - cards start lasix bid, GDMT, - plan cardiolite stress test. - cont DAPT. Sore throat likely upper respiratory infection -We will get flu/COVID rapid -Offered Tylenol conservative measures and Chloraseptic spray. hypokalemia - replete prn. nd monitor. Hyperlipidemia - home HIS Type 2 diabetes mellitus - SSI Tobacco use - nicotine patch prn if needed Diet cardiac DVT ambulating GI prophylaxis tolerating diet Med tele Full code Plan discussed with: Patient My Orders Orders - TO SANDERS MD Procedure Category Date Status Time Acetaminophen Tablet PHA 09/24/24 In Process (Tylenol Tablet) 14:00 Complete Blood Count LAB 09/25/24 Verified 04:00 Comprehensive LAB 09/25/24 Verified Metabolic Panel 04:00 Lactated Ringer's PHA 09/24/24 Transmitted 21:00 Date of Service: Sep 24, 2024 Billing Provider: TO SANDERS MD Common Visit Codes: [id number] INP/OBS CARE(HIGH) TO SANDERS MD Sep 24, 2024 17:11
[2024-09-24] MEDS: LACTATED RINGER'S 500 ML IV ONE (21:08)
[2024-09-25] VITALS (15 sets, daily range): BP systolic 81–109; BP diastolic 42–69; PULSE 87–102; RESP 14–24; TEMP 97.3–99.1; O2SAT 93–100
--- NOTE | 2024-09-25 06:39 | DVH ---
CHEST RADIOGRAPH Indication: new onset cough Technique: Single frontal view of the chest was obtained Comparison: XY CHEST PORTABLE on DOS: 09/22/24 FINDINGS: Lines and Tubes: None Lungs: No focal consolidation. Pleura: No effusion. No pneumothorax. Cardiomediastinal contours: Cardiomegaly. Bones: No acute osseous abnormality. Status post median sternotomy. IMPRESSION: 1. No acute cardiopulmonary disease.
[2024-09-25 07:11] LABS: Basophils # (auto) 0 10 ^3/uL (0-0.2); Basophils % (auto) 0.6 % (0.0-2.0); Eosinophils # (auto) 0.1 10 ^3/uL (0-0.8); Eosinophils % (auto) 1.3 % (0.0-7.0); Hematocrit 33.8 % (36.0-46.0); Lymphocytes # (auto) 1.8 10 ^3/uL (0.4-5.4); Lymphocytes % (auto) 35.6 % (10.0-50.0); Mean Corpuscular Hemoglobin 26.7 pg (28.0-32.0); Mean Corpuscular Hgb Conc. 32.4 g/dL (32.0-36.0); Mean Corpuscular Volume 82.5 fL (80.0-100.0); Monocytes # (auto) 0.9 10 ^3/uL (0-1.3); Monocytes % (auto) 17.4 % (0.0-12.0); Neutrophils # (auto) 2.3 10 ^3/uL (1.6-8.6); Neutrophils % (auto) 45.1 % (37.0-80.0); Nucleated Red Blood Cells % 0.1 %; Platelet Count (auto) 207 10^3/uL (140-450); Red Cell Distribution Width 16.5 % (11.8-14.3); White Blood Cell 5.1 10^3/uL (4.4-10.8)
[2024-09-25 07:40] LABS: Alanine Aminotransferase 23 U/L (7-40); Alkaline Phosphatase 72 U/L (46-116); Anion Gap 10 (5-15); BUN/Creatinine Ratio 13.4 (10.0-20.0); Blood Urea Nitrogen 15 mg/dL (9-23); Calcium 9.7 mg/dL (8.7-10.4); Carbon Dioxide 23 mmol/L (20-31); Chloride 106 mmol/L (98-107); Potassium 3.7 mmol/L (3.5-5.1); Sodium 139 mmol/L (136-145)
[2024-09-25 07:41] LABS: Albumin 4.2 g/dL (3.2-4.8); Aspartate Aminotransferase 31 U/L (13-40); Total Protein 6.8 g/dL (5.7-8.2)
[2024-09-25 07:45] LABS: Glucose 142 mg/dL (74-106)
[2024-09-25 07:46] LABS: Bilirubin, Total 0.4 mg/dL (0.2-1.0)
--- NOTE | 2024-09-25 08:55 | DVHPN2 ---
Consult Progress Note Date Seen: Sep 25, 2024 Subjective Review of Systems: CVS:Normal, RESPIRATORY:Normal, NEURO:Normal Objective vital signs Vital Sign Date Time Temp Pulse Resp B/P (MAP) Pulse Ox O2 Delivery O2 Flow Rate FiO2 09/25/24 05:00 97.9 100 17 98/54 (69) 95 97.9 09/24/24 20:00 Room Air* 0 21 Total Intake and Output 09/24/24 09/24/24 09/25/24 15:00 23:00 07:00 Intake Total 580 ml 650 ml 450 ml Output Total 1150 ml 900 ml Balance 580 ml -500 ml -450 ml medications Current Medications Medications Dose Ordered Sig/Jarett Route Start Time Stop Time Status Last Admin Dose Admin Morphine Sulfate 2 mg Q30MP PRN IV 09/22/24 09:15 Ondansetron HCl 4 mg Q4HP PRN IV 09/22/24 09:15 Diagnostic Test (Pha) 1 strip ACHS 09/22/24 11:30 09/25/24 06:11 1 STRIP Insulin Human Regular ACHS SC 09/22/24 11:30 09/24/24 17:10 3 UNITS Dextrose 50 ml UD PRN IV 09/22/24 09:15 Clopidogrel Bisulfate 75 mg DAILY PO 09/23/24 10:00 09/24/24 09:27 75 MG Aspirin 81 mg DAILY PO 09/23/24 10:00 09/24/24 09:27 81 MG Patient Own Medication 1 HS PO 09/22/24 22:00 Hold Empaglifozin 10 mg DAILY PO 09/23/24 10:00 09/24/24 09:27 10 MG Pantoprazole Sodium 40 mg DAILY IV 09/23/24 10:00 09/23/24 09:22 40 MG Gabapentin 200 mg BID PO 09/22/24 22:00 09/24/24 21:09 200 MG Metoprolol Tartrate 12.5 mg BID PO 09/23/24 22:00 09/23/24 21:21 12.5 MG Acetaminophen/ Hydrocodone Bitart 1 tab Q6HPRN PRN PO 09/23/24 19:00 09/24/24 20:38 1 TAB Acetaminophen 650 mg Q6HPRN PRN PO 09/24/24 14:00 09/24/24 14:31 650 MG EZETIMIBE 10 mg DAILY PO 09/25/24 10:00 Examination: LUNGS:Normal, CVS:Normal, NEURO:Normal laboratory and microbiology Laboratory Tests 09/25/24 06:20 Test 09/25/24 06:20 Range/Units Serum Glucose 142 H 74-106 mg/dL Problem List/Assessment/Plan Problem List/Assessment/Plan Chest pain, rule out progressive coronary artery disease Severe coronary artery disease status post triple-vessel CABG in 2023 Post-CABG multiple PTCAs x3 CHE (on Plavix/aspirin) Acute on chronic decompensated HFrEF, NYHA class III Mitral valve regurgitation, moderate to severe degree Tricuspid valve regurgitation, mild to moderate degree History myocardial infarction Hyperlipidemia Type 2 diabetes mellitus Tobacco use Plan/Recommendation (Dr. Salgado) * Transthoracic echocardiogram reveals EF 20% * Continue guideline directed medical therapy for CHF (as tolerated by BP) * Strict intake and output, daily weights, maintain fluid restriction * Chest pain protocol * TAINA score: 5 points * HEART score: 5 points * Continue dual antiplatelet therapy and lipid-lowering agent Given multiple risk factors for CAD, the patient is scheduled for a coronary angiogram with left cardiac catheterization on 09/25/24. All risks and benefits of the procedure were discussed in detail. All questions answered. Thank you for allowing us to care for this patient. Please call with any questions or concerns. This medical document was created using an electronic medical record system with voice recognition software and computerized dictation system. Although this document has been carefully reviewed, there might still be some phonetic and typographical errors. Occasional wrong-word or ``sound-alike substitutions may have occurred due to the inherent limitations of voice recognition software. These areas are purely typographical due to imperfections of the software programs and do not reflect any compromise in the patient's medical care. Please read the chart carefully and recognize, using context, where these substitutions have occurred. Plan discussed with: Patient, Other Date of Service: Sep 25, 2024 Billing Provider: BRYANT YING Cardiology Common Codes: [id number] BRYANT YING Sep 25, 2024 08:55
[2024-09-25] MEDS: IODIXANOL 320MG/ML 100ML BTL IV ONE (09:59)
[2024-09-25] MEDS: HEPARIN IN NS 1000Units/500mL 1,500 ML ONE (09:59)
[2024-09-25] MEDS: ANGIOMAX 250 MG VIAL IV ONE (10:17)
[2024-09-25] MEDS: VERAPAMIL 2.5MG/ML INJ 2ML VIAL IV ONE (10:17)
[2024-09-25] MEDS: fentaNYL CITRATE 100 MCG/2 ML VL ONE (10:18)
[2024-09-25] MEDS: SODIUM CHL 0.9% 0 ML ONE (10:18)
[2024-09-25] MEDS: MIDAZOLAM HCL 2MG/2ML 2ml VIAL (1mg/ml) ONE (10:18)
[2024-09-25] MEDS: HEPARIN SODIUM (PORCINE) 5000 UNITS/ML 1ML VIAL ONE (10:18)
[2024-09-25] MEDS: LIDOCAINE 2%HCL (LOCAL ANESTH.) INJ 20ML MDV ONE (10:18)
--- NOTE | 2024-09-25 12:20 | DVHOP2 ---
Operative Report Operative Report CARDIAC COTTON HEADER PROCEDURE REPORT [place], [place] Date of Service: 09/25/24 Financial Auditor: Kristal Parikh MD PROCEDURES PERFORMED: Coronary angiogram, left heart catheterization, conscious sedation administration and supervision, less than 15 minutes; fluoroscopy use and interpretation. BARRIOS angiography,vein graft angiography, sedation 15-30 mins PREOPERATIVE DIAGNOSES: ACS hx of cabg POSTOP DIAGNOSIS: severe cad DESCRIPTION OF PROCEDURE: The patient or appropriate family signed informed consent understanding the risks, benefits and alternatives of the procedure, they wished to proceed. The patient was brought to the cardiac laborer carpentry [place] The patient was prepped in a sterile fashion. Sedation was used per cardiac cath protocol. I administered 2 mL of 2% lidocaine to the left wrist. With an antegrade front wall puncture using US guidance saved to pacs system as the pulse was very weak. I cannulated the left radial artery and placed a 6-[place] Glidesheath slender. Next, an intra-arterial spasmolytic was administered. Next, a - 4 Ukrainian JR4 and JL4 and were used for coronary angiogram and LVEDP measurement and pressure pullback. At the completion of procedure, all guides and wires were removed, and there were no immediate complications. FINDINGS: RCA: Moderate vessel off the right sinus of Valsalva, there is no severe flow limiting stenosis. LEFT MAIN: Moderate size left main, it bifurcates into LAD and circumflex. CIRCUMFLEX: Moderate caliber vessel coming off the left main . ostial CX has a 130 degree turn and severe extensive disease. 95% mid CX lesion barely 2 mm in size. LAD: LAD is a moderate caliber vessel coming of the left main. mid LAD is TRACTOR DISTRIBUTOR with previous placed stents. BARRIOS to LAD atretic , non functional SVG to CX/OM occluded SVG to RPDA not cannulated, clips noted, however RCA is wide open , graft likely occluded given lack of retrograde filling CONCLUSIONS: 1. all grafts are non functional 2. severe CAD PLAN: Aggressive risk factor modification and medical management for the patient. ICD eval with her outpt cards HF management KRISTAL Cristina MD Sep 25, 2024 12:20
--- NOTE | 2024-09-25 12:24 | DVHPN2 ---
Progress Note Date Seen: Sep 25, 2024 Medical Necessity Reason Pt with a Central, PICC or Fol: No Subjective Patient reports: No new complaints Objective vital signs Vital Sign Date Time Temp Pulse Resp B/P (MAP) Pulse Ox O2 Delivery O2 Flow Rate FiO2 09/25/24 12:00 92 24 103/67 (79) 99 09/25/24 09:00 99.1 99.1 09/25/24 08:20 Room Air* 0 21 Total Intake and Output 09/24/24 09/24/24 09/25/24 15:00 23:00 07:00 Intake Total 580 ml 650 ml 450 ml Output Total 1150 ml 900 ml Balance 580 ml -500 ml -450 ml medications Current Medications Medications Dose Ordered Sig/Jarett Route Start Time Stop Time Status Last Admin Dose Admin Morphine Sulfate 2 mg Q30MP PRN IV 09/22/24 09:15 Ondansetron HCl 4 mg Q4HP PRN IV 09/22/24 09:15 Diagnostic Test (Pha) 1 strip ACHS 09/22/24 11:30 09/25/24 06:11 1 STRIP Insulin Human Regular ACHS SC 09/22/24 11:30 09/24/24 17:10 3 UNITS Dextrose 50 ml UD PRN IV 09/22/24 09:15 Clopidogrel Bisulfate 75 mg DAILY PO 09/23/24 10:00 09/24/24 09:27 75 MG Aspirin 81 mg DAILY PO 09/23/24 10:00 09/24/24 09:27 81 MG Patient Own Medication 1 HS PO 09/22/24 22:00 Hold Empaglifozin 10 mg DAILY PO 09/23/24 10:00 09/24/24 09:27 10 MG Pantoprazole Sodium 40 mg DAILY IV 09/23/24 10:00 09/25/24 09:15 40 MG Gabapentin 200 mg BID PO 09/22/24 22:00 09/24/24 21:09 200 MG Metoprolol Tartrate 12.5 mg BID PO 09/23/24 22:00 09/23/24 21:21 12.5 MG Acetaminophen/ Hydrocodone Bitart 1 tab Q6HPRN PRN PO 09/23/24 19:00 09/24/24 20:38 1 TAB Acetaminophen 650 mg Q6HPRN PRN PO 09/24/24 14:00 09/24/24 14:31 650 MG EZETIMIBE 10 mg DAILY PO 09/25/24 10:00 Examination: GENERAL:Abnormal, HEENT:Abnormal, LUNGS:Abnormal, CVS:Abnormal, ABDOMEN:Abnormal laboratory and microbiology Laboratory Tests 09/25/24 06:20 Test 09/25/24 06:20 Range/Units Serum Glucose 142 H 74-106 mg/dL Problem List/Assessment/Plan Problem List/Assessment/Plan cad cabg acs severe ICM s/p cathshowing occluded grafts asa statin add ranexa cont HF meds for pt, ef 20% add sglt fu with her cards regarding ICD therapy in future smoking cessation is necessary Plan discussed with: Patient My Orders My Orders Orders - KRISTAL FLOREZ MD Procedure Category Date Status Time Post Cath Vital Signs MIRIAM 09/25/24 In Process Q 15min Post Cath Activity MIRIAM 09/25/24 In Process Protocol 11:40 Cardiac DIET 09/25/24 Transmitted Diet-2gna,Lofat,Lochol Lunch Communication Order ORDERS 09/25/24 Transmitted 11:41 Date of Service: Sep 25, 2024 Billing Provider: KRISTAL FLOREZ MD Common Visit Codes: NOT BILLABLE KRISTAL FLOREZ MD Sep 25, 2024 12:24
[2024-09-25] MEDS: EZETIMIBE 10 MG TAB PO SCH (13:34)
[2024-09-25 16:03] LABS: INR 1.01 (0.9-1.15); Partial Thromboplastin Time 27.3 SEC (24.5-34.5); Prothrombin Time 10.7 sec (9.3-11.8)
--- NOTE | 2024-09-25 17:31 | DVH ---
EXAM: CT HEAD WITHOUT CONTRAST HISTORY: Severe AYALA COMPARISON: None TECHNIQUE: Axial images of the head were obtained and reformatted in coronal and sagittal planes. All CT scans at this medical facility are performed using dose modulation techniques as appropriate t o a performed exam including the following: Automated exposure control was utilized; adjustment of th e MA and/or KV according to patient size; and use of iterative reconstruction technique. CT Dose: CTDI volume is 52 mGy. Dose-length product is 936 mGy*cm FINDINGS: There is no evidence of acute intracranial hemorrhage, mass, mass effect midline shift. There is no h ydrocephalus or extra-axial fluid collection. [place]-white matter differentiation appears maintained. The visualized paranasal sinuses and mastoid air cells are clear. The calvarium is intact. IMPRESSION: 1. No acute intracranial process. HS:Y
--- NOTE | 2024-09-25 17:58 | DVHPN2 ---
Subjective Update 09/24 09/23 patient is ambulating, may have some component of anxiety and/or possible psychiatric disorder as patient is always OOB, walking gao halls. not complaining of any chest pain, sob , cramer, .cardioogy consulted for r/o CT. 09/24, patient doing well. She has having some sore throat. We will get flu/COVID rapid swabs. Offered Tylenol conservative measures and Chloraseptic spray. Cardiolite test tomorrow per Cardiology. She was asymptomatic chest pain-free. Reviewed: H&P Changes from previous H/P or p: No Changes General: Per HPI Musculoskeletal: No other, No neck pain, No shoulder pain, No arm pain, No back pain, No hand pain, No leg pain, No foot pain Skin: No Rash, No Lesions, No Jaundice, No Bruising, No Other Objective Vitals Vital Signs Date Time Temp Pulse Resp B/P (MAP) Pulse Ox O2 Delivery O2 Flow Rate FiO2 09/25/24 17:00 98.4 102 18 93/58 (70) 97 98.4 09/25/24 08:20 Room Air* 0 21 Intake/Output Intake and Output 09/25/24 07:00 Intake Total 1680 ml Output Total 2050 ml Balance -370 ml Intake Oral 1680 ml Output Urine Total 2050 ml Stool Total 0 ml # Voids 4 Exam systolic murmur 10/26, no rales, no pedal edema, abdomen normal. Medications Current Medications Medications Dose Ordered Sig/Jarett Route Start Time Stop Time Status Last Admin Dose Admin Morphine Sulfate 2 mg Q30MP PRN IV 09/22/24 09:15 Ondansetron HCl 4 mg Q4HP PRN IV 09/22/24 09:15 Diagnostic Test (Pha) 1 strip ACHS 09/22/24 11:30 09/25/24 16:42 1 STRIP Insulin Human Regular ACHS SC 09/22/24 11:30 09/24/24 17:10 3 UNITS Dextrose 50 ml UD PRN IV 09/22/24 09:15 Clopidogrel Bisulfate 75 mg DAILY PO 09/23/24 10:00 09/24/24 09:27 75 MG Aspirin 81 mg DAILY PO 09/23/24 10:00 09/24/24 09:27 81 MG Patient Own Medication 1 HS PO 09/22/24 22:00 Hold Empaglifozin 10 mg DAILY PO 09/23/24 10:00 09/25/24 13:33 10 MG Pantoprazole Sodium 40 mg DAILY IV 09/23/24 10:00 09/25/24 09:15 40 MG Gabapentin 200 mg BID PO 09/22/24 22:00 09/25/24 13:34 200 MG Metoprolol Tartrate 12.5 mg BID PO 09/23/24 22:00 09/23/24 21:21 12.5 MG Acetaminophen/ Hydrocodone Bitart 1 tab Q6HPRN PRN PO 09/23/24 19:00 09/25/24 13:34 1 TAB Acetaminophen 650 mg Q6HPRN PRN PO 09/24/24 14:00 09/25/24 16:42 650 MG EZETIMIBE 10 mg DAILY PO 09/25/24 10:00 09/25/24 13:34 10 MG Laboratory Results Laboratory Tests 09/25/24 06:20 Chemistry Test 09/25/24 06:20 Albumin 4.2 g/dL (3.2-4.8) Calcium Level 9.7 mg/dL (8.7-10.4) Total Protein 6.8 g/dL (5.7-8.2) Coagulation Test 09/25/24 15:00 Prothrombin Time 10.7 sec (9.3-11.8) Prothrombin Time INR 1.01 (0.9-1.15) Activated Partial Thromboplast Time 27.3 SEC (24.5-34.5) LFT Test 09/25/24 06:20 Alanine Aminotransferase (ALT) 23 U/L (7-40) Alkaline Phosphatase 72 U/L (46-116) Aspartate Amino Transferase (AST) 31 U/L (13-40) Total Bilirubin 0.4 mg/dL (0.2-1.0) Labs and/or images reviewed: Labs reviewed by me, Image(s) reviewed by me Assessment/Plan Assessment/Plan [address] [facility] this am. vs stable. labs stable. flucovid is neg. Chest pain, rule out progressive coronary artery disease CAD s/p CABG 2023 and PTCA CHE x3, Acute on chronic decompensated HFrEF, NYHA class III Mitral valve regurgitation, moderate to severe degree Tricuspid valve regurgitation, mild to moderate degree History myocardial infarction -Transthoracic echocardiogram reveals EF 20% - bnp 566, Tn 66>56>59high x3 but stable - cxr w/o signficnt findings - Echo HFrEF 20%, LVDD, global hypokinesis - cards start lasix bid, GDMT, - plan cardiolite stress test. - cont DAPT. Sore throat likely upper respiratory infection -We will get flu/COVID rapid - is neg -Offered Tylenol conservative measures and Chloraseptic spray. hypokalemia - replete prn. nd monitor. Hyperlipidemia - home HIS Type 2 diabetes mellitus - SSI Tobacco use - nicotine patch prn if needed Diet cardiac DVT ambulating GI prophylaxis tolerating diet Med tele Full code Plan discussed with: Patient Date of Service: Sep 25, 2024 Billing Provider: TO SANDERS MD Common Visit Codes: [id number] INP/OBS CARE(HIGH) TO SANDERS MD Sep 25, 2024 17:58
[2024-09-26] VITALS (10 sets, daily range): BP systolic 92–119; BP diastolic 40–68; PULSE 104–140; RESP 16–20; TEMP 97.8–100.9; O2SAT 94–99
--- NOTE | 2024-09-26 08:52 | DVHPN2 ---
Consult Progress Note Date Seen: Sep 26, 2024 Subjective Other Systems: Denies any cardiac symptoms Objective vital signs Vital Sign Date Time Temp Pulse Resp B/P (MAP) Pulse Ox O2 Delivery O2 Flow Rate FiO2 09/26/24 05:00 98.3 117 18 114/56 (75) 99 98.3 09/25/24 20:00 Room Air* 0 21 Total Intake and Output 09/25/24 09/25/24 09/26/24 15:00 23:00 07:00 Intake Total 180 ml 580 ml 310 ml Output Total 401 ml Balance 180 ml 179 ml 310 ml medications Current Medications Medications Dose Ordered Sig/Jarett Route Start Time Stop Time Status Last Admin Dose Admin Morphine Sulfate 2 mg Q30MP PRN IV 09/22/24 09:15 Ondansetron HCl 4 mg Q4HP PRN IV 09/22/24 09:15 Diagnostic Test (Pha) 1 strip ACHS 09/22/24 11:30 09/26/24 06:38 1 STRIP Insulin Human Regular ACHS SC 09/22/24 11:30 09/24/24 17:10 3 UNITS Dextrose 50 ml UD PRN IV 09/22/24 09:15 Clopidogrel Bisulfate 75 mg DAILY PO 09/23/24 10:00 09/24/24 09:27 75 MG Aspirin 81 mg DAILY PO 09/23/24 10:00 09/24/24 09:27 81 MG Patient Own Medication 1 HS PO 09/22/24 22:00 Hold Empaglifozin 10 mg DAILY PO 09/23/24 10:00 09/25/24 13:33 10 MG Pantoprazole Sodium 40 mg DAILY IV 09/23/24 10:00 09/25/24 09:15 40 MG Gabapentin 200 mg BID PO 09/22/24 22:00 09/25/24 21:12 200 MG Metoprolol Tartrate 12.5 mg BID PO 09/23/24 22:00 09/23/24 21:21 12.5 MG Acetaminophen/ Hydrocodone Bitart 1 tab Q6HPRN PRN PO 09/23/24 19:00 09/26/24 05:22 1 TAB Acetaminophen 650 mg Q6HPRN PRN PO 09/24/24 14:00 09/25/24 16:42 650 MG EZETIMIBE 10 mg DAILY PO 09/25/24 10:00 09/25/24 13:34 10 MG Examination: GENERAL:Abnormal (Anxious), LUNGS:Normal, CVS:Normal, NEURO:Normal laboratory and microbiology Laboratory Tests 09/25/24 06:20 Test 09/25/24 06:20 Range/Units Serum Glucose 142 H 74-106 mg/dL Problem List/Assessment/Plan Problem List/Assessment/Plan Chest pain with progressive coronary artery disease Severe coronary artery disease status post triple-vessel CABG in 2023 Post-CABG multiple PTCAs x3 CHE (on Plavix/aspirin) Acute on chronic decompensated HFrEF, NYHA class III Severe ischemic cardiomyopathy Mitral valve regurgitation, moderate to severe degree Tricuspid valve regurgitation, mild to moderate degree History myocardial infarction Hyperlipidemia Type 2 diabetes mellitus Tobacco use Plan/Recommendation (Dr. Salgado) * Transthoracic echocardiogram revealed EF 20% * Continue guideline directed medical therapy for CHF (as tolerated by BP) * Continue dual antiplatelet therapy and lipid-lowering agent (Ezetimibe, allergic to statins) * Initiate Ranexa therapy * Risk factor modifications, counseled * Mediterranean diet. Tobacco cessation. Medical therapy compliance Cardiac catheterization revealed occluded grafts. Continue follow-up with primary pararescue craftsman, Dr. Mg, at [facility] with upcoming appointment on 10/10/2024. Per patient she is discussing need for ICD with primary pararescue craftsman. There is no further cardiac work-up indicated at this time. Please call if in need to re-consult. Thank you for allowing us to care for this patient. This medical document was created using an electronic medical record system with voice recognition software and computerized dictation system. Although this document has been carefully reviewed, there might still be some phonetic and typographical errors. Occasional wrong-word or ``sound-alike substitutions may have occurred due to the inherent limitations of voice recognition software. These areas are purely typographical due to imperfections of the software programs and do not reflect any compromise in the patient's medical care. Please read the chart carefully and recognize, using context, where these substitutions have occurred. Plan discussed with: Patient, Other Date of Service: Sep 26, 2024 Billing Provider: BRYANT YING Cardiology Common Codes: [id number] INP/OBS CARE(Mod) BRYANT YING Sep 26, 2024 08:52
[2024-09-26] MEDS: SPIRONOLACTONE 25 MG TAB PO SCH (09:24)
[2024-09-26] MEDS: SACUBITRIL-VALSARTAN 24mg/26mg TAB PO SCH (09:25)
[2024-09-26] MEDS: FUROSEMIDE 20 MG TAB PO SCH (10:28)
[2024-09-26] MEDS: RANOLAZINE ER 500 MG TAB PO SCH (10:28)
--- NOTE | 2024-09-26 12:44 | DVHPN2 ---
Progress Note Date Seen: Sep 26, 2024 Medical Necessity Reason Pt with a Central, PICC or Fol: No Objective vital signs Vital Sign Date Time Temp Pulse Resp B/P (MAP) Pulse Ox O2 Delivery O2 Flow Rate FiO2 09/26/24 10:28 104/62 09/26/24 09:47 99.2 107 20 96 99.2 09/26/24 08:00 Room Air* 0 21 Total Intake and Output 09/25/24 09/25/24 09/26/24 15:00 23:00 07:00 Intake Total 180 ml 580 ml 310 ml Output Total 401 ml Balance 180 ml 179 ml 310 ml medications Current Medications Medications Dose Ordered Sig/Jarett Route Start Time Stop Time Status Last Admin Dose Admin Morphine Sulfate 2 mg Q30MP PRN IV 09/22/24 09:15 Ondansetron HCl 4 mg Q4HP PRN IV 09/22/24 09:15 Diagnostic Test (Pha) 1 strip ACHS 09/22/24 11:30 09/26/24 10:33 1 STRIP Insulin Human Regular ACHS SC 09/22/24 11:30 09/24/24 17:10 3 UNITS Dextrose 50 ml UD PRN IV 09/22/24 09:15 Clopidogrel Bisulfate 75 mg DAILY PO 09/23/24 10:00 09/26/24 08:54 75 MG Aspirin 81 mg DAILY PO 09/23/24 10:00 09/26/24 08:55 81 MG Patient Own Medication 1 HS PO 09/22/24 22:00 Hold Empaglifozin 10 mg DAILY PO 09/23/24 10:00 09/26/24 08:55 10 MG Pantoprazole Sodium 40 mg DAILY IV 09/23/24 10:00 09/26/24 08:55 40 MG Gabapentin 200 mg BID PO 09/22/24 22:00 09/26/24 08:53 200 MG Metoprolol Tartrate 12.5 mg BID PO 09/23/24 22:00 09/23/24 21:21 12.5 MG Acetaminophen/ Hydrocodone Bitart 1 tab Q6HPRN PRN PO 09/23/24 19:00 09/26/24 05:22 1 TAB Acetaminophen 650 mg Q6HPRN PRN PO 09/24/24 14:00 09/25/24 16:42 650 MG EZETIMIBE 10 mg DAILY PO 09/25/24 10:00 09/26/24 08:54 10 MG Sacubitril/ Valsartan 0.5 tab BID PO 09/26/24 10:00 Spironolactone 12.5 mg DAILY PO 09/26/24 10:00 Ranolazine 500 mg BID PO 09/26/24 10:00 09/26/24 10:28 500 MG Furosemide 20 mg DAILY PO 09/26/24 10:00 09/26/24 10:28 20 MG Examination: GENERAL:Abnormal, HEENT:Abnormal, LUNGS:Abnormal, CVS:Abnormal, ABDOMEN:Abnormal laboratory and microbiology Laboratory Tests 09/25/24 06:20 Test 09/25/24 06:20 Range/Units Serum Glucose 142 H 74-106 mg/dL Problem List/Assessment/Plan Problem List/Assessment/Plan cad cabg acs severe ICM s/p cathshowing occluded grafts asa statin add ranexa cont HF meds for pt, ef 20% add sglt fu with her cards regarding ICD therapy in future smoking cessation is necessary Plan discussed with: Patient Date of Service: Sep 26, 2024 Billing Provider: KRISTAL FLOREZ MD Common Visit Codes: NOT BILLABLE KRISTAL FLOREZ MD Sep 26, 2024 12:44
[2024-09-26] MEDS ORDERED: RANO500T3 PO (13:25)
--- NOTE | 2024-09-26 13:35 | DVHDS2 ---
Discharge Summary Date of Admission Sep 22, 2024 at 09:06 Date of Discharge: Sep 26, 2024 Labs/Diagnostic Data: Laboratory Results Test 09/26/24 10:32 09/25/24 15:00 09/25/24 06:20 09/24/24 14:33 POC Glucose 168 mg/dl (70-106) Prothrombin Time 10.7 sec (9.3-11.8) Prothrombin Time INR 1.01 (0.9-1.15) Activated Partial Thromboplast Time 27.3 SEC (24.5-34.5) White Blood Count 5.1 10^3/uL (4.4-10.8) Red Blood Count 4.10 10^6/uL (4.0-5.20) Hemoglobin 11.0 g/dL (12.2-16.2) Hematocrit 33.8 % (36.0-46.0) Mean Corpuscular Volume 82.5 fL (80.0-100.0) Mean Corpuscular Hemoglobin 26.7 pg (28.0-32.0) Mean Corpuscular Hemoglobin Concent 32.4 g/dL (32.0-36.0) Red Cell Distribution Width 16.5 % (11.8-14.3) Platelet Count 207 10^3/uL (140-450) Mean Platelet Volume 8.9 fL (6.9-10.8) Neutrophils (%) (Auto) 45.1 % (37.0-80.0) Lymphocytes (%) (Auto) 35.6 % (10.0-50.0) Monocytes (%) (Auto) 17.4 % (0.0-12.0) Eosinophils (%) (Auto) 1.3 % (0.0-7.0) Basophils (%) (Auto) 0.6 % (0.0-2.0) Neutrophils # (Auto) 2.3 10 ^3/uL (1.6-8.6) Lymphocytes # (Auto) 1.8 10 ^3/uL (0.4-5.4) Monocytes # (Auto) 0.9 10 ^3/uL (0-1.3) Eosinophils # (Auto) 0.1 10 ^3/uL (0-0.8) Basophils # (Auto) 0 10 ^3/uL (0-0.2) Nucleated Red Blood Cells 0.1 % Sodium Level 139 mmol/L (136-145) Potassium Level 3.7 mmol/L (3.5-5.1) Chloride Level 106 mmol/L (98-107) Carbon Dioxide Level 23 mmol/L (20-31) Anion Gap 10 (5-15) Blood Urea Nitrogen 15 mg/dL (9-23) Creatinine 1.12 mg/dL (0.550-1.02) Glomerular Filtration Rate Calc 56 mL/min (>90) BUN/Creatinine Ratio 13.4 (10.0-20.0) Serum Glucose 142 mg/dL (74-106) Calcium Level 9.7 mg/dL (8.7-10.4) Total Bilirubin 0.4 mg/dL (0.2-1.0) Aspartate Amino Transferase (AST) 31 U/L (13-40) Alanine Aminotransferase (ALT) 23 U/L (7-40) Alkaline Phosphatase 72 U/L (46-116) Total Protein 6.8 g/dL (5.7-8.2) Albumin 4.2 g/dL (3.2-4.8) Influenza Type A Antigen Negative (Negative) Influenza Type B Antigen Negative (Negative) SARS-CoV-2 Antigen (Rapid) Negative (NEGATIVE) Test 09/24/24 13:40 09/23/24 10:23 09/22/24 20:55 09/22/24 09:48 Differential Total Cells Counted 100.0 (100) Neutrophils % (Manual) 34 (37.0-80.0) Band Neutrophils % (Manual) 0 Lymphocytes % (Manual) 44 (10.0-50.0) Monocytes % (Manual) 22 (0-12) Eosinophils % (Manual) 0 (0-7) Basophils % (Manual) 0 (0.0-2.0) Metamyelocytes % (manual) 0 Myelocytes % (Manual) 0 Promyelocytes % (Manual) 0 Blast Cells % (Manual) 0 Reactive Lymphocytes 0 Platelet Estimate Adequate Magnesium Level 2.6 mg/dL (1.6-2.6) Free Thyroxine (T4) Calculated 1.50 ng/dL (0.89-1.76) Urine Opiates Screen Neg (NEGATIVE) Urine Fentanyl Screen Neg (NEGATIVE) Urine Barbiturates Screen Neg (NEGATIVE) Urine Phencyclidine Screen Neg (NEGATIVE) Urine Amphetamines Screen Neg (NEGATIVE) Urine Benzodiazepines Screen Neg (NEGATIVE) Urine Cocaine Screen Neg (NEGATIVE) Urine Cannabinoids Screen Neg (NEGATIVE) Test 09/22/24 05:47 09/22/24 02:40 Troponin I High Sensitivity 59 ng/L (</=34) Hemoglobin A1c 7.5 % A1C (<5.7) B-Type Natriuretic Peptide 566.28 pg/mL (0-100) Triglycerides Level 115 mg/dL (< 150) Cholesterol Level 117 mg/dL (< 200) LDL Cholesterol 60 mg/dL (< 100) HDL Cholesterol 41 mg/dL (40-59) Thyroid Stimulating Hormone (TSH) 0.01 uIU/mL (0.55-4.78) Other Laboratory Tests 09/25/24 06:20 Brief Hx & Hospital Course: HPI: 58F w pmhx Significant past medical history includes severe coronary artery disease status post triple-vessel CABG, multiple PTCAs x3 CHE (on ASA/Plavix), congestive heart failure, history myocardial infarction, hyperlipidemia, type 2 diabetes mellitus, peripheral neuropathy, and tobacco use; with CC of chest pain. The patient reports that the chest began yesterday. She states that she went to Dr. [facility] walk-in clinic in [place] for further assessment. From there, she was transferred to [facility]. She has now been transferred to this facility for higher level of care. She describes the chest pain as unprovoked, pressure-like in nature, midsternal with radiation to the left side of her chest as well as down her left arm. Associated symptoms include shortness of breath. she has primary cytology teacher in [facility] Dr arboleda. Hospital course: Initial twelve lead electrocardiogram reveals normal sinus rhythm with left bundle branch block and Q-waves seen in anterior leads. Initial troponin level of 66ng/L with down trend thereafter. cxr without any concerns. labs show normocytic anemia Hb 11-12, Cr at CKD stable w cr 1.08. flu covid neg, Uds neg, no UA collected. cardiology consulted to r/o ACS. taken for LHC on 09/26/24, showing occluded grafts (SVG to Cx/OM; SVG to RPDA; mid-[employer] w prior stent). patient has some URI ssx (sore throat, body aches) during closer to discharge day and flu/covid is neg, ssx control conservative management tylenol and chloroseptic spray. plan to continue guideline therapy, as in dc plan below. diagnosis: Chest pain with progressive coronary artery disease Severe coronary artery disease status post triple-vessel CABG in 2023 Post-CABG multiple PTCAs x3 CHE (on Plavix/aspirin) Acute on chronic decompensated HFrEF, NYHA class III Severe ischemic cardiomyopathy Acute upper respiratory syndrome, likely viral, covid and flu ruled out, Mitral valve regurgitation, moderate to severe degree Tricuspid valve regurgitation, mild to moderate degree History myocardial infarction Hyperlipidemia Type 2 diabetes mellitus Tobacco use discharge plan: - continue DAPT (plavix, aspirin 81) and lipitor and Ezetimibe - start ranexa - continue other medications (jardiance, gabapentin, metoprolol, entresto, aldactone, lasix) - discuss ICD with primary cardiology. - follow-up with PCP and cytology teacher. Condition at Discharge: Fair Final Diagnosis/Problems List Chest pain with progressive coronary artery disease Severe coronary artery disease status post triple-vessel CABG in 2023 Post-CABG multiple PTCAs x3 CHE (on Plavix/aspirin) Acute on chronic decompensated HFrEF, NYHA class III Severe ischemic cardiomyopathy Mitral valve regurgitation, moderate to severe degree Tricuspid valve regurgitation, mild to moderate degree History myocardial infarction Hyperlipidemia Type 2 diabetes mellitus Tobacco use Discharge Disposition: Home Discharge Instruct/Medications Diet: Cardiac 2g Na,low cholest Activity: No Restrictions, As Tolerated Follow Up/Referral: pcp, cardiology Medications: as below Discharge Statement: "Patient was advised to return to the ER or call 911 if any headaches, dizziness, shortness of breath, chest pain, abdominal pain, bleeding, fevers, or worsening of medical condition. Patient was counseled about treatment plan, medications, possible side effects, patientverbalized understanding. All questions were answered to the best of my ability. This discharge took greater then 30 minutes in planning, reviewing documentation, counseling the patient, and discussing with other team members." ASSESSMENT ASSESSMENT Assessment Chest pain with progressive coronary artery disease Severe coronary artery disease status post triple-vessel CABG in 2023 Post-CABG multiple PTCAs x3 CHE (on Plavix/aspirin) Acute on chronic decompensated HFrEF, NYHA class III Severe ischemic cardiomyopathy Mitral valve regurgitation, moderate to severe degree Tricuspid valve regurgitation, mild to moderate degree History myocardial infarction Hyperlipidemia Type 2 diabetes mellitus Tobacco use Date of Service: Sep 26, 2024 Billing Provider: TO SANDERS MD Common Visit Codes: 49064-OVG/OBS DISCH DAY >30min TO SANDERS MD Sep 26, 2024 13:35
[2024-09-26 14:06] LABS: Chloride 105 mmol/L (98-107); Potassium 4.2 mmol/L (3.5-5.1); Sodium 137 mmol/L (136-145)
[2024-09-26 14:07] LABS: Anion Gap 11 (5-15); Carbon Dioxide 21 mmol/L (20-31)
[2024-09-26 14:12] LABS: BUN/Creatinine Ratio 9.7 (10.0-20.0); Blood Urea Nitrogen 10 mg/dL (9-23)
[2024-09-26 14:22] LABS: Glucose 134 mg/dL (74-106)
--- NOTE | 2024-09-26 14:42 | ECG ---
[facility] Test Date: 2024-09-22 Test Time: 02:13:33 Pat Name: HIMANSHU SCHROEDER Department: ER Room: 0222T B Gender: F Supervisor Chemical: AM : 1965 Requested By: NATALIO JOHNSON Order Number: [id number] Reading MD: Karthik Salgado Measurements Intervals [place] Rate: 77 P: 76 KS: 160 QRS: 5 QRSD: 113 T: 0 QT: 414 QTc: 469 Interpretive Statements Sinus rhythm Biatrial enlargement Incomplete left bundle branch block Low voltage, precordial leads Anterior Q waves, possibly due to ILBBB Electronically Signed On 09-26-2024 17:48:00 PST by Karthik Salgado Please click the below link to view image of tracing.
--- NOTE | 2024-09-26 15:51 | DVH ---
CHEST RADIOGRAPH Indication: SOB, Tachy Technique: Single frontal view of the chest was obtained Comparison: XY CHEST XRAY 1 VIEW on DOS: 09/25/24, XY CHEST PORTABLE on DOS: 09/22/24 FINDINGS: Lines and Tubes: None Lungs: No focal consolidation. Pleura: No effusion. No pneumothorax. Cardiomediastinal contours: Unremarkable Bones: Median sternotomy IMPRESSION: No acute cardiopulmonary disease.
[2024-09-27] VITALS (10 sets, daily range): BP systolic 71–125; BP diastolic 44–61; PULSE 87–112; RESP 18–20; TEMP 36.8; O2SAT 95–100
[2024-09-27 07:14] LABS: Alanine Aminotransferase 19 U/L (7-40); Albumin 4.4 g/dL (3.2-4.8); Alkaline Phosphatase 70 U/L (46-116); Anion Gap 10 (5-15); Aspartate Aminotransferase 22 U/L (13-40); BUN/Creatinine Ratio 11.8 (10.0-20.0); Blood Urea Nitrogen 14 mg/dL (9-23); Calcium 9.7 mg/dL (8.7-10.4); Carbon Dioxide 21 mmol/L (20-31); Chloride 105 mmol/L (98-107); Potassium 3.9 mmol/L (3.5-5.1); Sodium 136 mmol/L (136-145)
[2024-09-27 07:15] LABS: Bilirubin, Total 0.5 mg/dL (0.2-1.0); Glucose 135 mg/dL (74-106); Total Protein 7.2 g/dL (5.7-8.2)
--- NOTE | 2024-09-27 14:13 | DVHPN2 ---
Subjective Update 09/27 09/23 patient is ambulating, may have some component of anxiety and/or possible psychiatric disorder as patient is always OOB, walking gao halls. not complaining of any chest pain, sob , cramer, .cardioogy consulted for r/o AL. 09/24, patient doing well. She has having some sore throat. We will get flu/COVID rapid swabs. Offered Tylenol conservative measures and Chloraseptic spray. Cardiolite test tomorrow per Cardiology. She was asymptomatic chest pain-free. 09/26 discharge 09/27 - discharge held due to tachycardia. this is likely d/t URI syndrome. today morning tachycardia is mild in low-mid 100s - will continue discharge. treat URI symptomatically. Reviewed: H&P Changes from previous H/P or p: No Changes General: Per HPI Musculoskeletal: No other, No neck pain, No shoulder pain, No arm pain, No back pain, No hand pain, No leg pain, No foot pain Skin: No Rash, No Lesions, No Jaundice, No Bruising, No Other Objective Vitals Vital Signs Date Time Temp Pulse Resp B/P (MAP) Pulse Ox O2 Delivery O2 Flow Rate FiO2 09/27/24 13:01 100.1 94 20 94/52 (66) 95 100.1 09/26/24 20:00 Room Air* 0 21 Intake/Output Intake and Output 09/27/24 07:00 Intake Total 820 ml Output Total 400 ml Balance 420 ml Intake Oral 820 ml Output Urine Total 400 ml # Voids 4 Exam systolic murmur /6, no rales, no pedal edema, abdomen normal. Medications Current Medications Medications Dose Ordered Sig/Jarett Route Start Time Stop Time Status Last Admin Dose Admin Morphine Sulfate 2 mg Q30MP PRN IV 09/22/24 09:15 Ondansetron HCl 4 mg Q4HP PRN IV 09/22/24 09:15 Diagnostic Test (Pha) 1 strip ACHS 09/22/24 11:30 09/27/24 06:05 1 STRIP Insulin Human Regular ACHS SC 09/22/24 11:30 09/24/24 17:10 3 UNITS Dextrose 50 ml UD PRN IV 09/22/24 09:15 Clopidogrel Bisulfate 75 mg DAILY PO 09/23/24 10:00 09/27/24 10:26 75 MG Aspirin 81 mg DAILY PO 09/23/24 10:00 09/27/24 10:27 81 MG Patient Own Medication 1 HS PO 09/22/24 22:00 Hold Empaglifozin 10 mg DAILY PO 09/23/24 10:00 09/27/24 10:26 10 MG Pantoprazole Sodium 40 mg DAILY IV 09/23/24 10:00 09/27/24 10:25 40 MG Gabapentin 200 mg BID PO 09/22/24 22:00 09/27/24 10:26 200 MG Metoprolol Tartrate 12.5 mg BID PO 09/23/24 22:00 09/23/24 21:21 12.5 MG Acetaminophen/ Hydrocodone Bitart 1 tab Q6HPRN PRN PO 09/23/24 19:00 09/27/24 10:27 1 TAB Acetaminophen 650 mg Q6HPRN PRN PO 09/24/24 14:00 09/26/24 22:53 650 MG EZETIMIBE 10 mg DAILY PO 09/25/24 10:00 09/27/24 10:27 10 MG Sacubitril/ Valsartan 0.5 tab BID PO 09/26/24 10:00 09/27/24 10:30 0.5 TAB Spironolactone 12.5 mg DAILY PO 09/26/24 10:00 Ranolazine 500 mg BID PO 09/26/24 10:00 09/27/24 10:27 500 MG Furosemide 20 mg DAILY PO 09/26/24 10:00 09/26/24 10:28 20 MG Laboratory Results Laboratory Tests 09/25/24 06:20 09/27/24 06:14 Chemistry Test 09/27/24 06:14 Albumin 4.4 g/dL (3.2-4.8) Calcium Level 9.7 mg/dL (8.7-10.4) Total Protein 7.2 g/dL (5.7-8.2) LFT Test 09/27/24 06:14 Alanine Aminotransferase (ALT) 19 U/L (7-40) Alkaline Phosphatase 70 U/L (46-116) Aspartate Amino Transferase (AST) 22 U/L (13-40) Total Bilirubin 0.5 mg/dL (0.2-1.0) Labs and/or images reviewed: Labs reviewed by me, Image(s) reviewed by me Assessment/Plan Assessment/Plan 09/27 - discharge held due to tachycardia. this is likely d/t URI syndrome. today morning tachycardia is mild in low-mid 100s - will continue discharge. treat URI symptomatically. Chest pain, rule out progressive coronary artery disease CAD s/p CABG 2023 and PTCA CHE x3, Acute on chronic decompensated HFrEF, NYHA class III Mitral valve regurgitation, moderate to severe degree Tricuspid valve regurgitation, mild to moderate degree History myocardial infarction -Transthoracic echocardiogram reveals EF 20% - bnp 566, Tn 66>56>59high x3 but stable - cxr w/o signficnt findings - Echo HFrEF 20%, LVDD, global hypokinesis - cards start lasix bid, GDMT, - plan cardiolite stress test. - cont DAPT. Sore throat likely upper respiratory infection -We will get flu/COVID rapid - is neg -Offered Tylenol conservative measures and Chloraseptic spray. hypokalemia - replete prn. nd monitor. Hyperlipidemia - home HIS Type 2 diabetes mellitus - SSI Tobacco use - nicotine patch prn if needed Diet cardiac DVT ambulating GI prophylaxis tolerating diet Med tele Full code Plan discussed with: Patient My Orders Orders - TO SANDERS MD Procedure Category Date Status Time Chest Xray 1 View XY 09/26/24 Resulted 15:10 Discharge DISCHARGE 09/27/24 Transmitted 09:57 Date of Service: Sep 27, 2024 Billing Provider: TO SANDERS MD Common Visit Codes: [id number] INP/OBS CARE(MOD) TO SANDERS MD Sep 27, 2024 14:13
[2024-09-27] MEDS: MIDODRINE HCL 10 MG TAB PO ONE (17:45)
[2024-09-27] MEDS: MIDODRINE HCL 10 MG TAB PO SCH (18:56)
[2024-09-27] MEDS: SODIUM CHLORIDE 0.9% 250 ML IV ONE (18:56)
[2024-09-28] MEDS ORDERED: MIDO10TA3 PO (13:28)
[2024-09-28] MEDS ORDERED: AZIT500T66 PO (13:28)
== END 2024-09-27 21:30 | disposition home or self-care (01) | DRG 191 ==
LOC: EDBD 01:53 → ER 01:53 → TELE 09:06 → TELE-CENTR 09:13
PROVIDERS: ATTEND Student in an Organized Health Care Education/Training Program
PROC: 4A023N7 Measurement of Cardiac Sampling and Pressure, Left Heart, Percutaneous Approach (ICD-10-PCS; principal; 2024-09-25)
PROC: B211YZZ Fluoroscopy of Multiple Coronary Arteries using Other Contrast (ICD-10-PCS; 2024-09-25)
PROC: B218YZZ Fluoroscopy of Left Internal Mammary Bypass Graft using Other Contrast (ICD-10-PCS; 2024-09-25)
PROC: B21FYZZ Fluoroscopy of Other Bypass Graft using Other Contrast (ICD-10-PCS; 2024-09-25)
DX: I25.10 Atherosclerotic heart disease of native coronary artery without angina pectoris (principal); I50.23 Acute on chronic systolic (congestive) heart failure; E11.42 Type 2 diabetes mellitus with diabetic polyneuropathy; I24.9 Acute ischemic heart disease, unspecified; I44.7 Left bundle-branch block, unspecified; I11.0 Hypertensive heart disease with heart failure; E78.5 Hyperlipidemia, unspecified; I08.1 Rheumatic disorders of both mitral and tricuspid valves; Z20.822 Contact with and (suspected) exposure to COVID-19; F17.210 Nicotine dependence, cigarettes, uncomplicated; E87.6 Hypokalemia; I25.5 Ischemic cardiomyopathy; I25.2 Old myocardial infarction; Z98.61 Coronary angioplasty status; Z95.1 Presence of aortocoronary bypass graft; Z88.8 Allergy status to other drugs, medicaments and biological substances; J02.8 Acute pharyngitis due to other specified organisms
CPT/HCPCS: 36415; 70450; 71045; 80048; 80053; 80061; 80307; 82962; 83036; 83735; 83880; 84439; 84443; 84484; 85007; 85025; 85027; 85610; 85730; 87426; 87804; 93005; 93306; 93459; 96374; 99152; 99291; G0378; J1815; J2250; J2470; Q9967

== ENCOUNTER 2025-03-07 02:24 | Inpatient (IN) | payer MEDICAID ==
[~2025-03-07] VITALS: Ht 162.6 cm; Wt 59.0 kg
[~2025-03-07 02:24] MED LIST: AZIT500T66 PO; FURO20TA4 PO; GAB100C PO; MIDO10TA3 PO; RANO500T3 PO; ROSU40TA47; SENN-105
--- NOTE | 2025-03-07 02:32 | ED.PDOC ---
History of Present Illness HPI Comments 59 year old female transferred from [place] with chest pain r/o ACS. Patient has PMH of CABG, RI, Hypotension, DM. Patient states she began experiencing chest pain yesterday (03/06/25) around 14:00, resolved about 1 hour after. Currently, patient states she has no chest pain. Denies shortness of breath, dizziness, headache, blurry vision, numbness/tingling, fever, chills, cough, cold, congestion, nausea, vomiting. No other symptoms or modifying factors present at this time. REVIEW OF SYSTEMS: General: No fever, no chills, or fatigue HEENT: No sore throat, no earache, no congestion, no neck pain. Cardiac: No chest pain at this time. No palpitations. Lungs: No shortness of breath, no cough. GI: No nausea, no vomiting, no diarrhea, no constipation, no abdominal pain : No dysuria, frequency, or urgency. No hematuria. Musculoskeletal: No joint pain , no joint swelling, no extremity edema. Skin: No rash, no itching. Neuro: No headache, no dizziness, no weakness PHYSICAL EXAM: General: Awake, alert and oriented. No acute distress. Skin: Skin in warm, dry and intact. Appropriate color for ethnicity. HEENT: The head is normocephalic and atraumatic. Conjunctivae are clear without exudates or hemorrhage. Sclera is non-icteric. EOM are intact. No signs of nystagmus. Eyelids are normal in appearance without swelling or lesions. Oral mucosa is pink and moist Neck: The neck is supple with normal range of motion. No JVD. Cardiac: Heart rate and rhythm are normal. No murmurs, gallops, or rubs are auscultated. Respiratory: No signs of respiratory distress. Lung sounds are clear in all lobes bilaterally without rales, rhonchi, or wheezes. Abdominal: Abdomen is soft, non-tender without distention, guarding or rigidity. Bowel sounds are present and normoactive in all four quadrants. Extremities: Upper and lower extremities are atraumatic in appearance without deformity or edema. Neurological: The patient is awake, alert and oriented to person, place, and time with normal speech. Speech is clear. There is no facial asymmetry. Psychiatric: Appropriate mood and affect. Good judgement and insight. Chief Complaint: Chest Pain Time Seen by : 02:29 Allergies: Coded Allergies: Atorvastatin (Verified Allergy, Unknown, 09/22/24) Home Meds Active Scripts Azithromycin (Azithromycin) 500 Mg Tab, 1 TAB PO DAILY, #5 TAB Prov:TO SANDERS MD 09/28/24 Midodrine Hcl (Midodrine Hcl) 10 Mg Tab, 10 MG PO TID for 5 Days, #15 TAB 0 Refills Prov:TO SANDERS MD 09/28/24 Ranolazine (Ranolazine ER) 500 Mg Tab, 500 MG PO DAILY for 30 Days, #30 TAB 0 Refills Prov:TO SANDERS MD 09/26/24 Reported Medications Rosuvastatin Calcium (Rosuvastatin Calcium) 40 Mg Tab, 1 DAILY 09/22/24 Gabapentin (Gabapentin) 100 Mg Cap, 2 CAP PO BID 09/22/24 Furosemide (Furosemide) 20 Mg Tab, 1 TAB PO DAILY 09/22/24 Senna (Senna) 8.6 Mg Tab, 2 09/22/24 Past Medical History PAST MEDICAL HISTORY: DM, HTN, RI Surgical History: CABG, PTCA STAND UP COMEDIAN History: Denies all STAND UP COMEDIAN Hx Family History Family History: Reviewed,noncontributory to illness Social History Smoker: Non-Smoker Alcohol: Denies ETOH Use Drugs: Denies Drug Use Lives In: Home Was a procedure done? Was a procedure done?: No EKG EKG : Pulse Rate (adult): 73 Cardiac Rhythm: NSR Comments No STEMI Differential Dx Considerations may include: Differential diagnoses considered include acute ischemic coronary syndrome, aortic dissection, cardiac tamponade, mediastinitis, pulmonary embolus, pneumothorax, tension pneumothorax, esophageal rupture, coronary artery vasospasm, myocarditis, pericarditis, pneumonia, pulmonary edema, esophageal tear, pancreatitis, aortic stenosis, dilated cardiomyopathy, hypertrophic cardiomyopathy, mitral valve prolapse, malignancy, pleuritis, pneumomediastinum, primary pulmonary hypertension, cholecystitis, esophageal spasm, esophagus, gastritis, GERD, peptic ulcer disease, costochondritis, fibromyalgia, rib fracture, herpes zoster, radicular syndromes, thoracic outlet syndrome, somatization. X-Ray, Labs, Meds, VS Vital Signs Date Time Temp Pulse Resp B/P (MAP) Pulse Ox O2 Delivery O2 Flow Rate FiO2 03/07/25 04:00 78 03/07/25 03:13 73 03/07/25 03:08 16 98 Room Air* 0 21 03/07/25 02:45 98.1 89 16 101/41 (61) 98 98.1 03/07/25 02:41 73 03/07/25 02:36 98.5 16 120/68 (85) 98 98.5 Lab Test 03/07/25 03:30 03/07/25 02:34 Range/Units Troponin I High Sensitivity 120 *H 130 *H </=34 ng/L White Blood Count 10.9 H 4.4-10.8 10^3/uL Red Blood Count 4.36 4.0-5.20 10^6/uL Hemoglobin 11.5 L 12.2-16.2 g/dL Hematocrit 34.8 L 36.0-46.0 % Mean Corpuscular Volume 79.8 L 80.0-100.0 fL Mean Corpuscular Hemoglobin 26.5 L 28.0-32.0 pg Mean Corpuscular Hemoglobin Concent 33.1 32.0-36.0 g/dL Red Cell Distribution Width 17.8 H 11.8-14.3 % Platelet Count 335 140-450 10^3/uL Mean Platelet Volume 8.4 6.9-10.8 fL Neutrophils (%) (Auto) 44.1 37.0-80.0 % Lymphocytes (%) (Auto) 46.4 10.0-50.0 % Monocytes (%) (Auto) 7.3 0.0-12.0 % Eosinophils (%) (Auto) 1.6 0.0-7.0 % Basophils (%) (Auto) 0.6 0.0-2.0 % Neutrophils # (Auto) 4.8 1.6-8.6 10 ^3/uL Lymphocytes # (Auto) 5.1 0.4-5.4 10 ^3/uL Monocytes # (Auto) 0.8 0-1.3 10 ^3/uL Eosinophils # (Auto) 0.2 0-0.8 10 ^3/uL Basophils # (Auto) 0.1 0-0.2 10 ^3/uL Nucleated Red Blood Cells 0.2 % Sodium Level 141 136-145 mmol/L Potassium Level 3.3 L 3.5-5.1 mmol/L Chloride Level 108 H 98-107 mmol/L Carbon Dioxide Level 25 20-31 mmol/L Anion Gap 8 5-15 Blood Urea Nitrogen 12 9-23 mg/dL Creatinine 1.02 0.550-1.02 mg/dL Glomerular Filtration Rate Calc 63 >90 mL/min BUN/Creatinine Ratio 11.8 10.0-20.0 Serum Glucose 147 H 74-106 mg/dL Calcium Level 9.4 8.7-10.4 mg/dL [place] [id number] Ph: [phone] DIAGNOSTIC IMAGING Diagnostic Imaging Report : [id number] Signed PATIENT: HIMANSHU SCHROEDER ACCT: [id number] UNIT: [id number] : 1965 LOC: ER ROOM / BED: / AGE / SEX: 59 / F ADM STATUS: REG ER SERVICE 8 ORDERING PHYSICIAN: AURELIA STEPHENSON MD PROCEDURE(s): CXR1 - CHEST XRAY 1 VIEW REASON: cp ORDER NUMBER(s): [id number], ACCESSION NUMBER(s): [id number] CHEST RADIOGRAPH Indication: cp Technique: Single frontal view of the chest was obtained COMPARISON: XY CHEST XRAY 1 VIEW on DOS: 09/26/24, XY CHEST XRAY 1 VIEW on DOS: 09/25/24, XY CHEST PORTABLE on DOS: 09/22/24 FINDINGS: Lines and Tubes: None. Left anterior chest wall cardiac pacing device. Lungs: Clear Pleura: No effusion. No pneumothorax. Cardiomediastinal contours: Unremarkable status post median sternotomy. Bones: Unremarkable IMPRESSION: 1. No acute disease. ATED BY: ANDREZ SANFORD MD DICTATED DATE/TIME: 03/07/25303 SIGNED BY: ANDREZ SANFORD MD SIGNED DATE/TIME: 03/07/25303 CC: Time of 1ST Reevaluation: 02:32 Reevaluation 1ST: Unchanged Patient Education/Counseling: Other (Need for admission) Family Education/Counseling: No Family Present SEPSIS Sepsis Screen Physician Orders Electrocardigram (03/07/25 02:29) Chest Xray 1 View (03/07/25 02:29) Saline Lock (03/07/25 02:29) Voice Network Engineer (03/07/25 ) Troponin-I Hs (03/07/25 04:15) Troponin-I Hs (03/07/25 06:15) Vital Signs Date Time Temp Pulse Resp B/P (MAP) Pulse Ox O2 Delivery O2 Flow Rate FiO2 03/07/25 04:00 78 03/07/25 03:13 73 03/07/25 03:08 16 98 Room Air* 0 21 03/07/25 02:45 98.1 89 16 101/41 (61) 98 98.1 03/07/25 02:41 73 03/07/25 02:36 98.5 16 120/68 (85) 98 98.5 Laboratory Tests Test 03/07/25 02:34 White Blood Count 10.9 10^3/uL (4.4-10.8) H Departure 1 Departure Time of Disposition: 02:32 Impression: Primary Impression: Chest pain Disposition: ADMITTED INPATIENT Condition: Stable Critical Care Note Critical Care Time?: No Stability Stability form required: No Heart Score Heart Score: Heart Score Response (Comments) Value History Moderate Suspicious 1 EKG Repolarization Disturb 1 Age 45-64 1 Risk Factors >3 or Hx ASHD 2 Troponin 1-2 x's Normal limit 1 Total 6 I personally scribed for AURELIA STEPHENSON MD ([email or web address]) on 03/07/25 at 03:12. Electronically submitted by Kathy Goldman ([email or web address]). I personally scribed for AURELIA STEPHENSON MD ([email or web address]) on 03/07/25 at 03:17. Electronically submitted by Kathy Goldman ([email or web address]). I personally scribed for AURELIA STEPHENSON MD ([email or web address]) on 03/07/25 at 04:17. Electronically submitted by Kathy Goldman ([email or web address]). AURELIA STEPHENSON MD Mar 07, 2025 02:32
[2025-03-07 02:52] LABS: Hematocrit 34.8 % (36.0-46.0); Hemoglobin 11.5 g/dL (12.2-16.2); Mean Corpuscular Hemoglobin 26.5 pg (28.0-32.0); Mean Corpuscular Volume 79.8 fL (80.0-100.0); Nucleated Red Blood Cells % 0.2 %
[2025-03-07 02:57] LABS: Sodium 141 mmol/L (136-145)
[2025-03-07 02:58] LABS: Anion Gap 8 (5-15); Calcium 9.4 mg/dL (8.7-10.4); Carbon Dioxide 25 mmol/L (20-31)
[2025-03-07 03:03] LABS: BUN/Creatinine Ratio 11.8 (10.0-20.0); Blood Urea Nitrogen 12 mg/dL (9-23)
--- NOTE | 2025-03-07 03:07 | DVH ---
CHEST RADIOGRAPH Indication: cp Technique: Single frontal view of the chest was obtained COMPARISON: XY CHEST XRAY 1 VIEW on DOS: 09/26/24, XY CHEST XRAY 1 VIEW on DOS: 09/25/24, XY CHEST PORTAB LE on DOS: 09/22/24 FINDINGS: Lines and Tubes: None. Left anterior chest wall cardiac pacing device. Lungs: Clear Pleura: No effusion. No pneumothorax. Cardiomediastinal contours: Unremarkable status post median sternotomy. Bones: Unremarkable IMPRESSION: 1. No acute disease.
[2025-03-07 03:08] VITALS: RESP 16; O2SAT 98
[2025-03-07 03:10] LABS: Chloride 108 mmol/L (98-107); Glucose 147 mg/dL (74-106); Potassium 3.3 mmol/L (3.5-5.1)
[2025-03-07] MEDS ORDERED: MORPHINE SULFATE INJ 2 MG/ml SYRG IV PRN (04:15)
[2025-03-07] MEDS ORDERED: NITROGLYCERIN 0.4 MG SL TAB SL PRN (04:15)
[2025-03-07] MEDS ORDERED: ONDANSETRON HCL 4 MG/2 ML VIAL IV PRN (04:15)
[2025-03-07] MEDS ORDERED: DEXTROSE (50%) 50ML SYRG IV PRN (04:15)
--- NOTE | 2025-03-07 04:40 | DVHHP2 ---
History of Present Illness Reason for Visit: Chest pain History of Present Illness 59-year-old female being transferred from [facility] for evaluation of chest pain. Patient with extensive cardiac history including AL, status post CABG. Patient presented to outside facility with complaints of chest pressure that started while watching TV. She states episode lasted approximately 1 hour. She describes the pain as substernal pressure-like with shortness for breath. Past Medical History AL, hypertension, diabetes mellitus Past Surgical History PTCA, CABG Family History Noncontributory Smoke: No ALCOHOL: none Drugs: None Lives: with Family Review of Systems Review of Systems Review of systems are currently negative otherwise addressed in HPI. Allergies: Coded Allergies: Atorvastatin (Verified Allergy, Unknown, 09/22/24) Medications Current Medications Medications Dose Ordered Sig/Jarett Route Start Time Stop Time Status Last Admin Dose Admin Ranolazine 500 mg DAILY PO 03/07/25 10:00 Aspirin 162 mg DAILY PO 03/07/25 10:00 Furosemide 40 mg DAILY PO 03/07/25 10:00 Clopidogrel Bisulfate 75 mg DAILY PO 03/07/25 10:00 Atorvastatin Calcium 40 mg HS PO 03/07/25 22:00 UNV Digoxin 0.125 mg DAILY PO 03/07/25 10:00 Empaglifozin 10 mg DAILY PO 03/07/25 10:00 UNV Midodrine 10 mg BID PO 03/07/25 10:00 UNV Diagnostic Test (Pha) 1 strip ACHS 03/07/25 07:00 UNV Insulin Human Regular ACHS SC 03/07/25 07:00 UNV Dextrose 50 ml UD PRN IV 03/07/25 04:15 UNV Ondansetron HCl 4 mg Q4HP PRN IV 03/07/25 04:15 UNV Enoxaparin Sodium 40 mg DAILY SC 03/07/25 10:00 UNV Acetaminophen 650 mg Q6HP PRN PO 03/07/25 04:15 UNV Nitroglycerin 0.4 mg Q5MINP PRN SL 03/07/25 04:15 UNV Morphine Sulfate 2 mg Q30M PRN IV 03/07/25 04:15 UNV Exam Vital Signs Vital Signs Date Time Temp Pulse Resp B/P (MAP) Pulse Ox O2 Delivery O2 Flow Rate FiO2 03/07/25 04:00 78 03/07/25 03:08 16 98 Room Air* 0 21 03/07/25 02:45 98.1 101/41 (61) 98.1 Exam Gen: 59-year-old female in no apparent distress. Skin: Warm, dry, normal color and texture, no rash. HEENT: Normocephalic atraumatic, mucous membranes moist and pink. Neck: Cervical and supraclavicular nodes normal without enlargement, trachea is midline, thyroid gland is normal without masses. Pulmonary: Clear to auscultation and percussion bilaterally. Cardiac: Regular rate and rhythm. No murmur Abdomen: Soft, nontender, nondistended, bowel sounds present all 4 quadrants, no guarding, no rigidity, no organomegaly. Extremities: No cyanosis, clubbing, no edema Neuro: Cranial nerves II through XII grossly intact, normal affect and speech, no focal motor deficits. Labs/Xrays ORDERING PHYSICIAN: AURELIA STEPHENSON MD PROCEDURE(s): CXR1 - CHEST XRAY 1 VIEW REASON: cp ORDER NUMBER(s): [id number], ACCESSION NUMBER(s): [id number] CHEST RADIOGRAPH Indication: cp Technique: Single frontal view of the chest was obtained COMPARISON: XY CHEST XRAY 1 VIEW on DOS: 09/26/24, XY CHEST XRAY 1 VIEW on DOS: 09/25/24, XY CHEST PORTABLE on DOS: 09/22/24 FINDINGS: Lines and Tubes: None. Left anterior chest wall cardiac pacing device. Lungs: Clear Pleura: No effusion. No pneumothorax. Cardiomediastinal contours: Unremarkable status post median sternotomy. Bones: Unremarkable IMPRESSION: 1. No acute disease. Labs Test 03/07/25 03:30 03/07/25 02:34 Range/Units Troponin I High Sensitivity 120 *H </=34 ng/L White Blood Count 10.9 H 4.4-10.8 10^3/uL Red Blood Count 4.36 4.0-5.20 10^6/uL Hemoglobin 11.5 L 12.2-16.2 g/dL Hematocrit 34.8 L 36.0-46.0 % Mean Corpuscular Volume 79.8 L 80.0-100.0 fL Mean Corpuscular Hemoglobin 26.5 L 28.0-32.0 pg Mean Corpuscular Hemoglobin Concent 33.1 32.0-36.0 g/dL Red Cell Distribution Width 17.8 H 11.8-14.3 % Platelet Count 335 140-450 10^3/uL Mean Platelet Volume 8.4 6.9-10.8 fL Neutrophils (%) (Auto) 44.1 37.0-80.0 % Lymphocytes (%) (Auto) 46.4 10.0-50.0 % Monocytes (%) (Auto) 7.3 0.0-12.0 % Eosinophils (%) (Auto) 1.6 0.0-7.0 % Basophils (%) (Auto) 0.6 0.0-2.0 % Neutrophils # (Auto) 4.8 1.6-8.6 10 ^3/uL Lymphocytes # (Auto) 5.1 0.4-5.4 10 ^3/uL Monocytes # (Auto) 0.8 0-1.3 10 ^3/uL Eosinophils # (Auto) 0.2 0-0.8 10 ^3/uL Basophils # (Auto) 0.1 0-0.2 10 ^3/uL Nucleated Red Blood Cells 0.2 % Sodium Level 141 136-145 mmol/L Potassium Level 3.3 L 3.5-5.1 mmol/L Chloride Level 108 H 98-107 mmol/L Carbon Dioxide Level 25 20-31 mmol/L Anion Gap 8 5-15 Blood Urea Nitrogen 12 9-23 mg/dL Creatinine 1.02 0.550-1.02 mg/dL Glomerular Filtration Rate Calc 63 >90 mL/min BUN/Creatinine Ratio 11.8 10.0-20.0 Serum Glucose 147 H 74-106 mg/dL Calcium Level 9.4 8.7-10.4 mg/dL SEPSIS Sepsis Screen Date sepsis recognized/suspect: Mar 07, 2025 Time Sepsis recognized/suspect: 0247 Recent Procedure: No On Antibiotic Therapy: No Respiratory Rate >20: No Heart Rate >90: No Temp<36 C (96.8 F) or >38.3 C: No SBP <90 or MAP <65 mmHG: No New Acute Mental Status Change: No Is the patient on CPAP, BIPAP,: No Physician Orders Electrocardigram (03/07/25 02:29) Chest Xray 1 View (03/07/25 02:29) Saline Lock (03/07/25 02:29) Barrel Filler Head (03/07/25 ) Troponin-I Hs (03/07/25 04:15) Troponin-I Hs (03/07/25 06:15) Ranolazine (Ranexa Er) (03/07/25 10:00) Aspirin Tablet (03/07/25 10:00) Furosemide Tablet (Lasix Tablet) (03/07/25 10:00) Clopidogrel Bisulfate (Plavix) (03/07/25 10:00) Atorvastatin (Lipitor) (03/07/25 22:00) Digoxin Tablet (Lanoxin Tablet) (03/07/25 10:00) Empagliflozin (Jardiance) (03/07/25 10:00) Midodrine Tablet (Proamatine Tablet) (03/07/25 10:00) * Cardiology Consult (03/07/25 04:12) Basic Metabolic Panel (03/08/25 04:00) Glucose Blood (Accu-Chek Comfort Curve T (03/07/25 07:00) Insulin R (Human) (Insulin R) (03/07/25 07:00) Dextrose 50% Syringe (03/07/25 04:15) Admit (03/07/25 04:12) Ondansetron Hcl (Zofran) (03/07/25 04:15) Enoxaparin Sodium (Lovenox) (03/07/25 10:00) Cardiac Diet-2gna,Lofat,Lochol (03/07/25 Breakfast) Condition: Fair (03/07/25 04:12) Acetaminophen Tablet (Tylenol Tablet) (03/07/25 04:15) Bedrest With Bathroom Privileg (03/07/25 04:12) Nitroglycerin Sublingual (Ntrostat Subli (03/07/25 04:15) Morphine Sulfate Injection (03/07/25 04:15) Stat Ekg For Chest Pain (03/07/25 04:12) Notify Md Of Changes From Base (03/07/25 04:12) Building Cleaning Supervisor For 24 Hours (03/07/25 04:12) Emergency Dysrhythmia Protocol (03/07/25 04:12) Rhythm Strips Once Every Shift (03/07/25 04:12) Oxygen By Nasal Cannula (03/07/25 04:12) Vital Signs Date Time Temp Pulse Resp B/P (MAP) Pulse Ox O2 Delivery O2 Flow Rate FiO2 03/07/25 04:00 78 03/07/25 03:13 73 03/07/25 03:08 16 98 Room Air* 0 21 03/07/25 02:45 98.1 89 16 101/41 (61) 98 98.1 03/07/25 02:41 73 03/07/25 02:36 98.5 16 120/68 (85) 98 98.5 Laboratory Tests Test 03/07/25 02:34 White Blood Count 10.9 10^3/uL (4.4-10.8) H Assessment/Plan Assessment/Plan Assessment Chest pain rule out ACS Diabetes mellitus History of AL Status post CABG Plan Admit the patient to telemetry to the hospitalist Cardiology consultation ACS protocol Resume home medications Continue treatment per orders. Plan discussed with: Patient My Orders Orders - KYLE KAUR Procedure Category Date Status Time Ranolazine (Ranexa Er) PHA 03/07/25 In Process 10:00 Aspirin Tablet PHA 03/07/25 In Process 10:00 Furosemide Tablet PHA 03/07/25 In Process (Lasix Tablet) 10:00 Clopidogrel Bisulfate PHA 03/07/25 Logged (Plavix) 10:00 Atorvastatin (Lipitor) PHA 03/07/25 Logged 22:00 Digoxin Tablet PHA 03/07/25 Logged (Lanoxin Tablet) 10:00 Empagliflozin PHA 03/07/25 Logged (Jardiance) 10:00 Midodrine Tablet PHA 03/07/25 Logged (Proamatine Tablet) 10:00 * Cardiology Consult CONS 03/07/25 Transmitted 04:12 Basic Metabolic Panel LAB 03/08/25 Verified 04:00 Glucose Blood PHA 03/07/25 Logged (Accu-Chek Comfort 07:00 Insulin R (Human) PHA 03/07/25 Logged (Insulin R) 07:00 Dextrose 50% Syringe PHA 03/07/25 Logged 04:15 Admit ADMIT 03/07/25 Transmitted 04:12 Ondansetron Hcl PHA 03/07/25 Logged (Zofran) 04:15 Enoxaparin Sodium PHA 03/07/25 Logged (Lovenox) 10:00 Cardiac DIET 03/07/25 Transmitted Diet-2gna,Lofat,Lochol Breakfast Condition: Fair [facility] 03/07/25 In Process 04:12 Acetaminophen Tablet [facility] 03/07/25 Logged (Tylenol Tablet) 04:15 Bedrest With Bathroom [facility] 03/07/25 In Process Privileg 04:12 Nitroglycerin [facility] 03/07/25 Logged Sublingual (Ntrostat 04:15 Morphine Sulfate [facility] 03/07/25 Logged Injection 04:15 Stat Ekg For Chest [facility] 03/07/25 In Process Pain 04:12 Notify Md Of Changes [facility] 03/07/25 In Process From Base 04:12 Building Cleaning Supervisor For [facility] 03/07/25 In Process 24 Hours 04:12 Emergency Dysrhythmia [facility] 03/07/25 In Process Protocol 04:12 Rhythm Strips Once [facility] 03/07/25 In Process Every Shift 04:12 Oxygen By Nasal 03/07/25 Transmitted Cannula 04:12 Date of Service: Mar 07, 2025 Billing Provider: KYLE KAUR Common Visit Codes: [id number] INP/OBS CARE (HIGH) KYLE KAUR Mar 07, 2025 04:39
--- NOTE | 2025-03-07 06:23 | ECG ---
[facility] Test Date: 2025-03-07 Test Time: 02:41:44 Pat Name: HIMANSHU SCHROEDER Department: ED Room: [address] [place] [address] Gender: F Decorating Supervisor: ADAM : 1965 Requested By: AURELIA STEPHENSON Order Number: [id number] Reading MD: Measurements Intervals [place] Rate: 73 P: 69 TX: 157 QRS: 3 QRSD: 103 T: 54 QT: 449 QTc: 495 Interpretive Statements Sinus rhythm Left atrial enlargement Anteroseptal infarct, age indeterminate Please click the below link to view image of tracing.
[2025-03-07] MEDS: ACCU-CHEK COMFORT CURVE STRIP VI SCH (06:32)
[2025-03-07] MEDS: InsuLIN REG 1unit/0.01ml Soln (100units/ml) SC SCH (06:37)
[2025-03-07 07:28] VITALS: PULSE 74; RESP 17; O2SAT 96
[2025-03-07] MEDS: POTASSIUM EFFERVESENT TAB 25 MEQ PO ONE (08:08)
[2025-03-07] MEDS ORDERED: MIDODRINE HCL 10 MG TAB PO SCH (10:00)
--- NOTE | 2025-03-07 10:02 | DVHPNRES ---
Progress Note Date Seen: Mar 07, 2025 Resident Creating Document: KAYLEE SRINIVASAN RESIDENT Has the PT tested + for MRSA If YES, has PT been informed?: No Medical Necessity Reason Pt with a Central, PICC or Fol: No Subjective Review of Systems Shanna Reveles is a 58-year-old female with past medical history of Systolic CHF (ECHO 09/16: EF 20%), hypertension, hyperlipidemia, diabetes, NE, CAD, status post CABG x3 PTCA in 2023 at [facility] who presents to the ED for chest pain 03/01 for 1 day. Patient reports she was sitting when the pain started, the pain is pressure like, retrosternal, continue, that radiates to the left shoulder with concomitant general weakness. At home, the patient took Nitroglycerin x3 without resolution of her symptoms Patient was at [place] and was transferred over to [facility]. Patient also reports that she has a halver machine operator in [place] in his appointment next month. Patient denies any shortness of breath, abdominal pain, nausea, vomiting, diarrhea, fever, chills, lightheadedness, and dizziness. The initial labs showed: Troponins 130, 120, 144. EKG showed sinus rhythm and old anteroseptal infarct. Today, the patient reports that her pain and shortness of breath have subsided, she is feeling better, vital signs were reviewed, laboratories show hypokalemia 3.3 meq/l that was corrected. Cardiology is onboard, patient will have an Echo today, we will follow up with this patient. ROS: Constitutional: Yes: Weakness; No: Fever, Chills, Sweats, Malaise, Other Eyes: No: Pain, Vision change, Conjunctivae inflammation, Eyelid inflammation, Other, Redness ENT: No: Ear pain, Ear discharge, Nose pain, Nose discharge, Nose congestion, Mouth pain, Mouth swelling, Throat pain, Throat swelling, Other Respiratory: No: Cough, Dry, Shortness of breath, SOB with excertion, Wheezing, Hemoptysis, Pleuritic Pain, Sputum, Wheezing, Other Cardiovascular: Chest Pain 2/10; No: Palpitations, Orthopnea, Paroxysmal Noc. Dyspnea, Edema, Lt Headedness, Other Gastrointestinal: No: Nausea, Vomiting, Abdominal Pain, Diarrhea, Constipation, Melena, Hematochezia, Other Genitourinary: No Dysuria, No Frequency, No Incontinence, No Hematuria, No Retention, No Other Musculoskeletal: No: other, neck pain, shoulder pain, arm pain, back pain, hand pain, leg pain, foot pain Skin: No: Rash, Lesions, Jaundice, Bruising, Other Neurological: No: Weakness, Numbness, Incoordination, Change in speech, Confusion, Seizures, Other Allergies: Coded Allergies: Atorvastatin (Verified Allergy, Unknown, 09/22/24) Objective vital signs Vital Sign Date Time Temp Pulse Resp B/P (MAP) Pulse Ox O2 Delivery O2 Flow Rate FiO2 03/07/25 07:28 98.2 74 17 104/59 (74) 96 98.2 03/07/25 07:28 Room Air* 0 21 medications Current Medications Medications Dose Ordered Sig/Jarett Route Start Time Stop Time Status Last Admin Dose Admin Ranolazine 500 mg DAILY PO 03/07/25 10:00 Aspirin 162 mg DAILY PO 03/07/25 10:00 Furosemide 40 mg DAILY PO 03/07/25 10:00 Clopidogrel Bisulfate 75 mg DAILY PO 03/07/25 10:00 Atorvastatin Calcium 40 mg HS PO 03/07/25 22:00 Future Hold Digoxin 0.125 mg DAILY PO 03/07/25 10:00 Empaglifozin 10 mg DAILY PO 03/07/25 10:00 Diagnostic Test (Pha) 1 strip ACHS 03/07/25 07:00 03/07/25 06:32 1 STRIP Insulin Human Regular ACHS SC 03/07/25 07:00 03/07/25 06:37 3 UNITS Dextrose 50 ml UD PRN IV 03/07/25 04:15 Ondansetron HCl 4 mg Q4HP PRN IV 03/07/25 04:15 Enoxaparin Sodium 40 mg DAILY SC 03/07/25 10:00 Acetaminophen 650 mg Q6HP PRN PO 03/07/25 04:15 Nitroglycerin 0.4 mg Q5MINP PRN SL 03/07/25 04:15 Morphine Sulfate 2 mg Q30M PRN IV 03/07/25 04:15 Examination General Appearance: Alert, Oriented X3, Cooperative, No acute distress HEENT: Atraumatic, PERRLA, EOMI, Mucous membr. moist/pink Respiratory: Normal air movement Cardiovascular: Regular rate, Normal S1, Normal S2, No murmurs Abdominal: Normal bowel sounds, Soft, No tenderness, No hepatospenomegaly, No masses Extremities: No clubbing, No cyanosis, No edema, Normal pulses, No tenderness/swelling Skin: middle chest scar post cardiac surgery. No rashes, No breakdown, No significant lesion Neuro: Normal gait, Normal speech, Strength at 5/5 X4 ext, Normal tone, Sensation intact Psych/Mental Status: Mental status NL, Mood NL laboratory and microbiology Laboratory Tests 03/07/25 02:34 Test 03/07/25 02:34 Range/Units Serum Glucose 147 H 74-106 mg/dL Problem List/Assessment/Plan Problem List/Assessment/Plan #Chest pain, rule out cardiac ischemia #History of NE, Status post CABG Echo Telemetry Cardiology consult Strict Is&Os GDMT for heart failure Daily weights Fluid restriction ACS protocol Dual antiplatelet therapy and lipid-lowering agent Nuclear stress test per Cardiology #Diabetes type 2 Hemoglobin A1c ISS and Accu-Cheks #Chronic hypertension Continue home medications #Chronic hyperlipidemia continue home medications #Systolic CHF EF 20% Echo Continue home medications #Tobacco use Counseled patient on cessation of tobacco Offered nicotine patch, patient declined FEN/PPX cardiac diet hl DVT prophylaxis-not indicated patient ambulating PUD prophylaxis Protonix Discussed plan of care with Dr. Askew. Telemetry. Code status: PCP: Plan discussed with: Patient, patients agrees with the plan. Plan discussed with: Patient KAYLEE SRINIVASAN RESIDENT Mar 07, 2025 10:02
[2025-03-07] MEDS: FUROSEMIDE 40 MG TAB PO SCH (10:49)
[2025-03-07] MEDS: ENOXAPARIN SOD 40 MG/0.4 ML SYRINGE SC SCH (10:50)
[2025-03-07] MEDS: CLOPIDOGREL BISULFATE 75 MG TAB PO SCH (10:50)
[2025-03-07] MEDS: EMPAGLIFLOZIN 10 MG TAB PO SCH (10:50)
[2025-03-07] MEDS: RANOLAZINE ER 500 MG TAB PO SCH ×2 (10:58→22:06)
[2025-03-07] MEDS: DIGOXIN 0.125 MG TAB PO SCH (10:58)
[2025-03-07] MEDS: diphenhdrAMINE HCL 50 MG/1 ML VL IV ONE (11:48)
[2025-03-07] MEDS: METOPROLOL TARTRATE 25 MG TAB PO ONE (12:41)
[2025-03-07] MEDS: ISOSORBIDE MONONITRATE ER 60 MG TAB PO ONE (12:41)
[2025-03-07 13:09] LABS: Urine Protein, UAD 1+ (Negative)
--- NOTE | 2025-03-07 15:04 | DVHCONRES ---
Date Seen: Mar 07, 2025 Resident Creating Document: RONI MARTIN RESDIENT History of Present Illness This is a 59-year-old female with past medical history of coronary artery disease (status post CABG in October 2023), hypertension, diabetes, came to the hospital due to chest pain. Per patient, the patient was lying on the couch which suddenly developed chest pain. Pain was localized at substernal area, radiating to the neck, pressure-like, 7/10, with no clear exacerbating or relieving factor. The patient was also complained of shortness of breaths and sweating. She denies fever, cough, or any recent chest trauma/sick contact. PMHx: coronary artery disease (status post CABG in October 2023), hypertension, diabetes PSHx: Status post CABG Home medication: Lasix 40 mg daily, Plavix, metformin, insulin, aspirin, ilene rvastatin, carvedilol, digoxin and Jardiance Allergic history: Atorvastatin Patient seen and examined at the bedside. Patient is feeling better since admission but still complained of mild chest pain. Family History: Diabetes mellitus G8 SISTER Allergies: Coded Allergies: Atorvastatin (Verified Allergy, Unknown, 09/22/24) Home Meds Active Scripts Azithromycin (Azithromycin) 500 Mg Tab, 1 TAB PO DAILY, #5 TAB Prov:TO SANDERS MD 09/28/24 Midodrine Hcl (Midodrine Hcl) 10 Mg Tab, 10 MG PO TID for 5 Days, #15 TAB 0 Refills Prov:TO SANDERS MD 09/28/24 Ranolazine (Ranolazine ER) 500 Mg Tab, 500 MG PO DAILY for 30 Days, #30 TAB 0 Refills Prov:TO SANDERS MD 09/26/24 Reported Medications Rosuvastatin Calcium (Rosuvastatin Calcium) 40 Mg Tab, 1 DAILY 09/22/24 Gabapentin (Gabapentin) 100 Mg Cap, 2 CAP PO BID 09/22/24 Furosemide (Furosemide) 20 Mg Tab, 1 TAB PO DAILY 09/22/24 Senna (Senna) 8.6 Mg Tab, 2 09/22/24 Current Medications Current Medications Medications (Trade) Dose Ordered Sig/Jarett Route PRN Reason Start Time Stop Time Status Last Admin Ranolazine (Ranexa ER) 500 mg DAILY PO 03/07/25 10:00 7/16/25 10:58 Aspirin 162 mg DAILY PO 03/07/25 10:00 03/07/25 10:50 Furosemide (Lasix Tablet) 40 mg DAILY PO 03/07/25 10:00 03/07/25 10:49 Clopidogrel Bisulfate (Plavix) 75 mg DAILY PO 03/07/25 10:00 03/07/25 10:50 Atorvastatin Calcium (Lipitor) 40 mg HS PO 03/07/25 22:00 Future Hold Digoxin (Lanoxin Tablet) 0.125 mg DAILY PO 03/07/25 10:00 03/07/25 10:58 Empaglifozin (Jardiance) 10 mg DAILY PO 03/07/25 10:00 03/07/25 11:19 DC 03/07/25 10:50 Midodrine (Proamatine Tablet) 10 mg BID PO 03/07/25 10:00 03/07/25 09:33 DC Diagnostic Test (Pha) (Accu-Chek Comfort Curve T) 1 strip ACHS 03/07/25 07:00 03/07/25 11:48 Insulin Human Regular (InsuLIN R) ACHS SC 03/07/25 07:00 03/07/25 11:58 Dextrose 50 ml UD PRN IV Blood Sugar LESS THAN 60 03/07/25 04:15 Ondansetron HCl (Zofran) 4 mg Q4HP PRN IV NAUSEA / VOMITING 03/07/25 04:15 Enoxaparin Sodium (Lovenox) 40 mg DAILY SC 03/07/25 10:00 03/07/25 10:50 Acetaminophen (Tylenol Tablet) 650 mg Q6HP PRN PO PAIN SCALE 1-3 OR TEMP>100.4 03/07/25 04:15 Nitroglycerin (Ntrostat Sublingual) 0.4 mg Q5MINP PRN SL FOR CHEST PAIN 03/07/25 04:15 Morphine Sulfate 2 mg Q30M PRN IV FOR CHEST PAIN 03/07/25 04:15 Metoprolol Tartrate (Lopressor Tablet) 25 mg BID PO 03/07/25 22:00 Isosorbide Mononitrate (Imdur Er Tablet) 30 mg DAILY PO 03/08/25 10:00 Vital Signs Vital Signs Date Time Temp Pulse Resp B/P (MAP) Pulse Ox O2 Delivery O2 Flow Rate FiO2 03/07/25 12:41 125/64 03/07/25 12:41 77 03/07/25 12:00 98.0 17 96 98.0 03/07/25 12:00 Room Air* 0 21 Physical Exam General Appearance: Alert, Oriented X3, Cooperative, No acute distress HEENT: Atraumatic, PERRLA, EOMI, Mucous membrane moist/pink Respiratory: Clear to auscultation, Normal air movement Cardiovascular: Regular rate, Normal S1, Normal S2, No murmurs, no chest wall tenderness Abdominal: Normal bowel sounds, Soft, No tenderness, No hepatospenomegaly, No masses Extremities: No clubbing, No cyanosis, No edema, Normal pulses, No tenderness/swelling Skin: No rashes, No breakdown, No significant lesion Neuro: Normal gait, Normal speech, Strength at 5/5 X4 ext, Normal tone, Sensation intact, Cranial nerves 3-12 NL, Reflexes 2+ Psych/Mental Status: Mental status NL, Mood NL Labs/Diagnostic Data Labs Test 03/07/25 12:00 03/07/25 11:51 03/07/25 07:36 03/07/25 02:34 Range/Units Urine Color Light-yellow Yellow Urine Clarity Turbid H Clear Urine pH 6.5 5.0-9.0 Urine Specific [place] 1.012 1.001-1.035 Urine Protein 1+ H Negative Urine Ketones Negative Negative Urine Blood Negative Negative /uL Urine Nitrite Negative Negative Urine Bilirubin Negative Negative Urine Urobilinogen Normal Negative mg/dL Urine Leukocyte Esterase 3+ Negative /uL Urine RBC 2 0 - 4 /hpf Urine Microscopic WBC 11 H 0-5 /HPF Urine Squamous Epithelial Cells Mod <5 /hpf Urine Bacteria Few H None Seen /hpf Urine Glucose Normal Normal mg/dL POC Glucose 167 H 70-106 mg/dl Troponin I High Sensitivity 141 *H </=34 ng/L Thyroid Stimulating Hormone (TSH) 0.47 L 0.55-4.78 uIU/mL White Blood Count 10.9 H 4.4-10.8 10^3/uL Red Blood Count 4.36 4.0-5.20 10^6/uL Hemoglobin 11.5 L 12.2-16.2 g/dL Hematocrit 34.8 L 36.0-46.0 % Mean Corpuscular Volume 79.8 L 80.0-100.0 fL Mean Corpuscular Hemoglobin 26.5 L 28.0-32.0 pg Mean Corpuscular Hemoglobin Concent 33.1 32.0-36.0 g/dL Red Cell Distribution Width 17.8 H 11.8-14.3 % Platelet Count 335 140-450 10^3/uL Mean Platelet Volume 8.4 6.9-10.8 fL Neutrophils (%) (Auto) 44.1 37.0-80.0 % Lymphocytes (%) (Auto) 46.4 10.0-50.0 % Monocytes (%) (Auto) 7.3 0.0-12.0 % Eosinophils (%) (Auto) 1.6 0.0-7.0 % Basophils (%) (Auto) 0.6 0.0-2.0 % Neutrophils # (Auto) 4.8 1.6-8.6 10 ^3/uL Lymphocytes # (Auto) 5.1 0.4-5.4 10 ^3/uL Monocytes # (Auto) 0.8 0-1.3 10 ^3/uL Eosinophils # (Auto) 0.2 0-0.8 10 ^3/uL Basophils # (Auto) 0.1 0-0.2 10 ^3/uL Nucleated Red Blood Cells 0.2 % Sodium Level 141 136-145 mmol/L Potassium Level 3.3 L 3.5-5.1 mmol/L Chloride Level 108 H 98-107 mmol/L Carbon Dioxide Level 25 20-31 mmol/L Anion Gap 8 5-15 Blood Urea Nitrogen 12 9-23 mg/dL Creatinine 1.02 0.550-1.02 mg/dL Glomerular Filtration Rate Calc 63 >90 mL/min BUN/Creatinine Ratio 11.8 10.0-20.0 Serum Glucose 147 H 74-106 mg/dL Calcium Level 9.4 8.7-10.4 mg/dL Assessment Chest pain, possible cardiac NSTEMI Systolic heart failure, NYHA class 2 History of coronary artery disease, status post CABG Hypertension Dyslipidemia * EKGs shows diffuse ST-depression * Serial trop I is raised at 140s * Echo from August 2024 shows LVEF 20% * Angiogram on September 2024 showed severe coronary artery disease with all grafts were nonfunctional, recommended medical management Plan/recommendation * Continue aspirin, Plavix, Lasix, carvedilol, Jardiance, and atorvastatin * Started the patient on spironolactone 25 mg daily, Entresto, ranolazine 500 mg b.i.d. and isosorbide mononitrate 30 mg daily * Patient has a chief business development officer on day, follow up with Cardiology on outpatient basis * We sign of the patient * Plan per primary team Thank you for giving us the opportunity to take care of your patient. Please call back if you have any question/concerns. Plan discussed with: Patient, Other (RN) RONI MARTIN Mar 07, 2025 15:04
[2025-03-07] MEDS: SPIRONOLACTONE 25 MG TAB PO ONE (15:24)
[2025-03-07 17:48] VITALS: BP 96/61; PULSE 82; RESP 18; TEMP 98.2; O2SAT 99
[2025-03-07] MEDS ORDERED: DIGO0.12 PO (18:52)
[2025-03-07] MEDS ORDERED: MIDO10TA3 PO (18:52)
[2025-03-07] MEDS ORDERED: ATOR-47 PO (18:52)
[2025-03-07] MEDS ORDERED: EMPA1TAB PO (18:52)
[2025-03-07] MEDS ORDERED: ASPI-543 PO (18:52)
[2025-03-07] MEDS ORDERED: METF-370 PO (18:52)
[2025-03-07] MEDS ORDERED: CARV3.1240 PO (18:52)
[2025-03-07 20:00] VITALS: PULSE 80; PULSE 93; RESP 22; O2SAT 98
[2025-03-07 21:00] VITALS: BP 115/67; PULSE 80; RESP 22; TEMP 97.5; O2SAT 98
[2025-03-07] MEDS: SACUBITRIL-VALSARTAN 24mg/26mg TAB PO SCH (22:00)
[2025-03-07] MEDS ORDERED: ATORVASTATIN 20 MG TAB PO SCH (22:00)
[2025-03-07] MEDS: METOPROLOL TARTRATE 25 MG TAB PO SCH (22:05)
[2025-03-08] VITALS (8 sets, daily range): BP systolic 87–100; BP diastolic 54–68; PULSE 72–95; RESP 17–22; TEMP 97.4–98.4; O2SAT 98–100
[2025-03-08] MEDS: POTASSIUM EFFERVESENT TAB 25 MEQ GT ONE (07:03)
[2025-03-08] MEDS: cefTRIAXone 1GM/50ML D5W 50 ML IV ONE (07:04)
[2025-03-08] MEDS: ISOSORBIDE MONONITRATE ER 60 MG TAB PO SCH (08:39)
[2025-03-08] MEDS: FUROSEMIDE 20 MG TAB PO SCH (08:40)
[2025-03-08] MEDS: SPIRONOLACTONE 25 MG TAB PO SCH (08:40)
[2025-03-08] MEDS: ACETAMINOPHEN 325 MG TAB PO PRN (08:51)
[2025-03-08 09:35] LABS: Hemoglobin 11.1 g/dL (12.2-16.2); Mean Corpuscular Hemoglobin 26.2 pg (28.0-32.0); Nucleated Red Blood Cells % 0.0 %
[2025-03-08 09:37] LABS: Hematocrit 33.6 % (36.0-46.0); Mean Corpuscular Volume 79.6 fL (80.0-100.0)
[2025-03-08 09:59] LABS: Alanine Aminotransferase 22 U/L (7-40); Albumin 4.3 g/dL (3.2-4.8); Alkaline Phosphatase 90 U/L (46-116); Anion Gap 8 (5-15); BUN/Creatinine Ratio 13.6 (10.0-20.0); Blood Urea Nitrogen 18 mg/dL (9-23); Calcium 10.2 mg/dL (8.7-10.4); Carbon Dioxide 26 mmol/L (20-31); Chloride 102 mmol/L (98-107); Potassium 4.0 mmol/L (3.5-5.1); Sodium 136 mmol/L (136-145); Total Protein 7.1 g/dL (5.7-8.2)
[2025-03-08 10:00] LABS: Bilirubin, Total 0.4 mg/dL (0.2-1.0)
[2025-03-08 10:04] LABS: Glucose 277 mg/dL (74-106)
--- NOTE | 2025-03-08 18:27 | DVHPNRES ---
Progress Note Date Seen: Mar 08, 2025 Resident Creating Document: KAYLEE SRINIVASAN RESIDENT Has the PT tested + for MRSA If YES, has PT been informed?: No Medical Necessity Reason Pt with a Central, PICC or Fol: No Subjective Review of Systems PHI:Shanna Reveles is a 58-year-old female with past medical history of Systolic CHF (ECHO 09/16: EF 20%), hypertension, hyperlipidemia, diabetes, OK, CAD, status post CABG x3 PTCA in 2023 at [facility] who presents to the ED for chest pain 7/10 for 1 day. Patient reports she was sitting when the pain started, the pain is pressure like, retrosternal, continue, that radiates to the left shoulder with concomitant general weakness. At home, the patient took Nitroglycerin x3 without resolution of her symptoms Patient was at [facility] and was transferred over to [facility]. 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 Patient denies any shortness of breath, abdominal pain, nausea, vomiting, diarrhea, fever, chills, lightheadedness, and dizziness. The initial labs showed: Troponins 130, 120, 144. EKG showed sinus rhythm and old anteroseptal infarct. Today, the patient reports that her chest pain has resolved, she is feeling better, vital signs within normal, Cardiology consult was done, they recommend to see the patient as an out patient and continue her follow up with the doctors that performed the CABG as well. Laboratories showed hypokalemia 3.3 meq/l that was corrected. Urine was positive for UTI, Urine culture was requested, then the patient was started on ceftriaxone 1g IV. We will follow up with this patient. ROS: Constitutional: Yes: Weakness; No: Fever, Chills, Sweats, Malaise, Other Eyes: No: Pain, Vision change, Conjunctivae inflammation, Eyelid inflammation, Other, Redness ENT: No: Ear pain, Ear discharge, Nose pain, Nose discharge, Nose congestion, Mouth pain, Mouth swelling, Throat pain, Throat swelling, Other Respiratory: No: Cough, Dry, Shortness of breath, SOB with excertion, Wheezing, Hemoptysis, Pleuritic Pain, Sputum, Wheezing, Other Cardiovascular: Chest Pain 0/10; No: Palpitations, Orthopnea, Paroxysmal Noc. Dyspnea, Edema, Lt Headedness, Other Gastrointestinal: No: Nausea, Vomiting, Abdominal Pain, Diarrhea, Constipation, Melena, Hematochezia, Other Genitourinary: No Dysuria, No Frequency, No Incontinence, No Hematuria, No Retention, No Other Musculoskeletal: No: other, neck pain, shoulder pain, arm pain, back pain, hand pain, leg pain, foot pain Skin: No: Rash, Lesions, Jaundice, Bruising, Other Neurological: No: Weakness, Numbness, Incoordination, Change in speech, Confusion, Seizures, Other Objective vital signs Vital Sign Date Time Temp Pulse Resp B/P (MAP) Pulse Ox O2 Delivery O2 Flow Rate FiO2 03/08/25 17:00 97.7 81 17 91/60 (70) 100 97.7 03/08/25 08:00 Room Air* 0 21 Total Intake and Output 03/07/25 03/07/25 03/08/25 15:00 23:00 07:00 Intake Total 210 ml Output Total 500 ml Balance -500 ml 210 ml medications Current Medications Medications Dose Ordered Sig/Jarett Route Start Time Stop Time Status Last Admin Dose Admin Clopidogrel Bisulfate 75 mg DAILY PO 03/07/25 10:00 03/08/25 08:38 75 MG Atorvastatin Calcium 40 mg HS PO 03/07/25 22:00 Hold Digoxin 0.125 mg DAILY PO 03/07/25 10:00 03/08/25 08:39 0.125 MG Diagnostic Test (Pha) 1 strip ACHS 03/07/25 07:00 03/08/25 17:26 1 STRIP Insulin Human Regular ACHS SC 03/07/25 07:00 03/08/25 17:28 4 UNITS Dextrose 50 ml UD PRN IV 03/07/25 04:15 Ondansetron HCl 4 mg Q4HP PRN IV 03/07/25 04:15 Enoxaparin Sodium 40 mg DAILY SC 03/07/25 10:00 03/07/25 10:50 40 MG Acetaminophen 650 mg Q6HP PRN PO 03/07/25 04:15 03/08/25 08:51 650 MG Nitroglycerin 0.4 mg Q5MINP PRN SL 03/07/25 04:15 Morphine Sulfate 2 mg Q30M PRN IV 03/07/25 04:15 Metoprolol Tartrate 25 mg BID PO 03/07/25 22:00 03/07/25 22:05 25 MG Isosorbide Mononitrate 30 mg DAILY PO 03/08/25 10:00 03/08/25 08:39 30 MG Aspirin 81 mg DAILY PO 03/08/25 10:00 03/08/25 08:38 81 MG Furosemide 20 mg DAILY PO 03/08/25 10:00 Spironolactone 25 mg DAILY PO 03/08/25 10:00 Ranolazine 500 mg BID PO 03/07/25 22:00 03/08/25 08:37 500 MG Ceftriaxone Sodium 50 ml @ 100 mls/hr DAILY@09 IV 03/09/25 09:00 Examination Examination General Appearance: Alert, Oriented X3, Cooperative, No acute distress HEENT: Atraumatic, PERRLA, EOMI, Mucous membr. moist/pink Respiratory: Normal air movement Cardiovascular: Regular rate, Normal S1, Normal S2, No murmurs Abdominal: Normal bowel sounds, Soft, No tenderness, No hepatospenomegaly, No masses Extremities: No clubbing, No cyanosis, No edema, Normal pulses, No tenderness/swelling Skin: middle chest scar post cardiac surgery. No rashes, No breakdown, No significant lesion Neuro: Normal gait, Normal speech, Strength at 5/5 X4 ext, Normal tone, Sensation intact Psych/Mental Status: Mental status NL, Mood NL laboratory and microbiology Laboratory Tests 03/08/25 09:08 Test 03/08/25 09:08 Range/Units Serum Glucose 277 H 74-106 mg/dL Problem List/Assessment/Plan Problem List/Assessment/Plan #Chest pain, rule out cardiac ischemia #History of OK, Status post CABG Echo Telemetry Cardiology consult Strict Is&Os GDMT for heart failure Daily weights Fluid restriction ACS protocol Dual antiplatelet therapy and lipid-lowering agent Nuclear stress test per Cardiology #UTI UA possitive urine culture Creftriaxone 1g #Diabetes type 2 Hemoglobin A1c ISS and Accu-Cheks #Chronic hypertension Continue home medications #Chronic hyperlipidemia continue home medications #Systolic CHF EF 20% Echo Continue home medications #Tobacco use Counseled patient on cessation of tobacco Offered nicotine patch, patient declined FEN/PPX cardiac diet DVT prophylaxis-not indicated patient ambulating PUD prophylaxis Protonix Discussed plan of care with Dr. Askew. Telemetry. Code status: Full code PCP: Florecita Kruse Plan discussed with: Patient, patients agrees with the plan. Plan discussed with: Patient My Orders My Orders Orders - KAYLEE SRINIVASAN Procedure Category Date Status Time Urine Bacterial PARISH 03/08/25 Uncollected Culture 06:37 Complete Blood Count LAB 03/09/25 Verified 04:00 Comprehensive LAB 03/09/25 Verified Metabolic Panel 04:00 KAYLEE SRINIVASAN RESIDENT Mar 08, 2025 18:27
[2025-03-09 00:42] VITALS: BP 99/50; PULSE 80; RESP 18; TEMP 98.1; O2SAT 97
[2025-03-09 04:57] VITALS: BP 110/56; PULSE 80; RESP 18; TEMP 98; O2SAT 97
[2025-03-09 05:37] LABS: Hemoglobin 11.1 g/dL (12.2-16.2)
[2025-03-09 05:40] LABS: Hematocrit 32.9 % (36.0-46.0); Mean Corpuscular Hemoglobin 26.7 pg (28.0-32.0); Mean Corpuscular Volume 79.2 fL (80.0-100.0); Nucleated Red Blood Cells % 0.0 %
[2025-03-09 05:59] LABS: Alanine Aminotransferase 19 U/L (7-40); Alkaline Phosphatase 93 U/L (46-116); Anion Gap 9 (5-15); BUN/Creatinine Ratio 15.7 (10.0-20.0); Blood Urea Nitrogen 20 mg/dL (9-23); Calcium 9.7 mg/dL (8.7-10.4); Carbon Dioxide 23 mmol/L (20-31); Chloride 105 mmol/L (98-107); Potassium 4.0 mmol/L (3.5-5.1); Sodium 137 mmol/L (136-145); Total Protein 6.9 g/dL (5.7-8.2)
[2025-03-09 06:00] LABS: Glucose 208 mg/dL (74-106)
[2025-03-09 06:01] LABS: Albumin 4.4 g/dL (3.2-4.8)
[2025-03-09 06:02] LABS: Bilirubin, Total 0.3 mg/dL (0.2-1.0)
[2025-03-09 08:00] VITALS: PULSE 64; PULSE 90; RESP 16; O2SAT 99
[2025-03-09] MEDS: cefTRIAXone 1GM/50ML D5W 50 ML IV SCH (08:07)
[2025-03-09] MEDS: GABAPENTIN 100 MG CAP PO SCH (08:09)
[2025-03-09 09:00] VITALS: BP 110/59; PULSE 85; RESP 18; TEMP 98.6; O2SAT 98
--- NOTE | 2025-03-09 12:25 | DVHDSRES ---
Discharge Summary Date of Admission Resident Creating Document: KAYLEE SRINIVASAN RESIDENT Mar 07, 2025 at 04:12 Date of Discharge: Mar 09, 2025 Admitting Diagnosis Chest pain rule out ACS Wounds: Not wound during admission Labs/Diagnostic Data: Laboratory Results Test 03/09/25 04:40 03/08/25 20:57 03/07/25 12:00 03/07/25 07:36 White Blood Count 8.1 10^3/uL (4.4-10.8) Red Blood Count 4.15 10^6/uL (4.0-5.20) Hemoglobin 11.1 g/dL (12.2-16.2) Hematocrit 32.9 % (36.0-46.0) Mean Corpuscular Volume 79.2 fL (80.0-100.0) Mean Corpuscular Hemoglobin 26.7 pg (28.0-32.0) Mean Corpuscular Hemoglobin Concent 33.7 g/dL (32.0-36.0) Red Cell Distribution Width 17.2 % (11.8-14.3) Platelet Count 312 10^3/uL (140-450) Mean Platelet Volume 8.5 fL (6.9-10.8) Neutrophils (%) (Auto) 42.8 % (37.0-80.0) Lymphocytes (%) (Auto) 46.9 % (10.0-50.0) Monocytes (%) (Auto) 8.3 % (0.0-12.0) Eosinophils (%) (Auto) 1.4 % (0.0-7.0) Basophils (%) (Auto) 0.6 % (0.0-2.0) Neutrophils # (Auto) 3.4 10 ^3/uL (1.6-8.6) Lymphocytes # (Auto) 3.8 10 ^3/uL (0.4-5.4) Monocytes # (Auto) 0.7 10 ^3/uL (0-1.3) Eosinophils # (Auto) 0.1 10 ^3/uL (0-0.8) Basophils # (Auto) 0 10 ^3/uL (0-0.2) Nucleated Red Blood Cells 0.0 % Sodium Level 137 mmol/L (136-145) Potassium Level 4.0 mmol/L (3.5-5.1) Chloride Level 105 mmol/L (98-107) Carbon Dioxide Level 23 mmol/L (20-31) Anion Gap 9 (5-15) Blood Urea Nitrogen 20 mg/dL (9-23) Creatinine 1.27 mg/dL (0.550-1.02) Glomerular Filtration Rate Calc 48 mL/min (>90) BUN/Creatinine Ratio 15.7 (10.0-20.0) Serum Glucose 208 mg/dL (74-106) Calcium Level 9.7 mg/dL (8.7-10.4) Total Bilirubin 0.3 mg/dL (0.2-1.0) Aspartate Amino Transferase (AST) 18 U/L (13-40) Alanine Aminotransferase (ALT) 19 U/L (7-40) Alkaline Phosphatase 93 U/L (46-116) Total Protein 6.9 g/dL (5.7-8.2) Albumin 4.4 g/dL (3.2-4.8) Digoxin Level 0.82 ng/mL (0.8-2) POC Glucose 290 mg/dl (70-106) Urine Color Light-yellow (Yellow) Urine Clarity Turbid (Clear) Urine pH 6.5 (5.0-9.0) Urine Specific [place] 1.012 (1.001-1.035) Urine Protein 1+ (Negative) Urine Ketones Negative (Negative) Urine Blood Negative /uL (Negative) Urine Nitrite Negative (Negative) Urine Bilirubin Negative (Negative) Urine Urobilinogen Normal mg/dL (Negative) Urine Leukocyte Esterase 3+ /uL (Negative) Urine RBC 2 /hpf (0 - 4) Urine Microscopic WBC 11 /HPF (0-5) Urine Squamous Epithelial Cells Mod /hpf (<5) Urine Bacteria Few /hpf (None Seen) Urine Glucose Normal mg/dL (Normal) Troponin I High Sensitivity 141 ng/L (</=34) Thyroid Stimulating Hormone (TSH) 0.47 uIU/mL (0.55-4.78) Test 03/07/25 02:34 Magnesium Level 2.1 mg/dL (1.6-2.6) B-Type Natriuretic Peptide 127.35 pg/mL (0-100) Other Laboratory Tests 03/09/25 04:40 Brief Hx & Hospital Course: PHI:Shanna Reveles is a 58-year-old female with past medical history of Systolic CHF (ECHO 09/16: EF 20%), hypertension, hyperlipidemia, diabetes, DC, CAD, status post CABG x3 PTCA in 2023 at [facility] who presents to the ED for chest pain 7/10 for 1 day. Patient reports she was sitting when the pain started, the pain is pressure like, retrosternal, continue, that radiates to the left shoulder with concomitant general weakness. At home, the patient took Nitroglycerin x3 without resolution of her symptoms Patient was at [facility] and was transferred over to [facility]. 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 Patient denies any shortness of breath, abdominal pain, nausea, vomiting, diarrhea, fever, chills, lightheadedness, and dizziness. The initial labs showed: Troponins 130, 120, 144. EKG showed sinus rhythm and old anteroseptal infarct. Admission course: The patient reports that her chest pain has resolved, she is feeling better, vital signs within normal, Cardiology consult was done, they recommend to see the patient as an out patient and continue her follow up with the doctors that performed the CABG as well. Urine was positive for UTI, Urine culture was requested, then the patient was started on ceftriaxone 1g IV. Urine culture is negative. Patient will be discharge and continue with Nitrofurantoin 100mg bid for 5 days. F/U PCP im one week. F/U with cardiology in 1 week. Discharge plan: Cardiac diet Metoprolol succinate 25mg po qd Nitrofurantoin 100mg po bid for 5 days F/U PCP im one week F/U with cardiology in 1 week Continue home medications Counseled patient on cessation of tobacco Offered nicotine patch, patient declined ROS: Constitutional: Yes: Weakness; No: Fever, Chills, Sweats, Malaise, Other Eyes: No: Pain, Vision change, Conjunctivae inflammation, Eyelid inflammation, Other, Redness ENT: No: Ear pain, Ear discharge, Nose pain, Nose discharge, Nose congestion, Mouth pain, Mouth swelling, Throat pain, Throat swelling, Other Respiratory: No: Cough, Dry, Shortness of breath, SOB with excertion, Wheezing, Hemoptysis, Pleuritic Pain, Sputum, Wheezing, Other Cardiovascular: Chest Pain 0/10; No: Palpitations, Orthopnea, Paroxysmal Noc. Dyspnea, Edema, Lt Headedness, Other Gastrointestinal: No: Nausea, Vomiting, Abdominal Pain, Diarrhea, Constipation, Melena, Hematochezia, Other Genitourinary: No Dysuria, No Frequency, No Incontinence, No Hematuria, No Retention, No Other Musculoskeletal: No: other, neck pain, shoulder pain, arm pain, back pain, hand pain, leg pain, foot pain Skin: No: Rash, Lesions, Jaundice, Bruising, Other Neurological: No: Weakness, Numbness, Incoordination, Change in speech, Confusion, Seizures, Other Physical Exam General Appearance: Alert, Oriented X3, Cooperative, No acute distress HEENT: Atraumatic, PERRLA, EOMI, Mucous membr. moist/pink Respiratory: Normal air movement Cardiovascular: Regular rate, Normal S1, Normal S2, No murmurs Abdominal: Normal bowel sounds, Soft, No tenderness, No hepatospenomegaly, No masses Extremities: No clubbing, No cyanosis, No edema, Normal pulses, No tenderness/swelling Skin: middle chest scar post cardiac surgery. No rashes, No breakdown, No significant lesion Neuro: Normal gait, Normal speech, Strength at 5/5 X4 ext, Normal tone, Sensation intact Psych/Mental Status: Mental status NL, Mood NL Assessment during the admission: #Chest pain, rule out cardiac ischemia #History of DC, Status post CABG #UTI #Diabetes type 2 #Chronic hypertension #Chronic hyperlipidemia #Systolic CHF EF 20% #Tobacco use FEN/PPX cardiac diet DVT prophylaxis-not indicated patient ambulating PUD prophylaxis Protonix Discussed plan of care with Dr. Askew. Code status: Full code PCP: Florecita Kruse Plan discussed with: Patient, patients agrees with the discharge plan. Consults/Reason for consult Cardiology: Chest pain Condition at Discharge: Stable Final Diagnosis/Problems List #Chest pain, rule out cardiac ischemia #History of DC, Status post CABG #UTI #Diabetes type 2 #Chronic hypertension #Chronic hyperlipidemia #Systolic CHF EF 20% #Tobacco use Discharge Disposition: Home SNF Discharge Will this Physician continue t: No Discharge Instruct/Medications Diet: Cardiac 2g Na,low cholest Activity: No Restrictions, As Tolerated Scheduled Aspirin (Aspir-Low), 81 MG PO DAILY, (Reported) Atorvastatin Calcium (Atorvastatin Calcium), 1 TAB PO DAILY, (Reported) Digoxin (Digoxin), 125 MCG PO DAILY, (Reported) Gabapentin (Gabapentin), 2 CAP PO BID, (Reported) Metformin Hydrochloride (Metformin Hcl), 500 MG PO IBID, (Reported) Metoprolol Succinate (Metoprolol Succinate Er), 1 TAB PO DAILY Midodrine Hcl (Midodrine Hcl), 10 MG PO TID Nitrofurantoin (Nitrofurantoin), 1 CAP PO BID Miscellaneous Medications Empagliflozin (Jardiance), 10 MG PO, (Reported) Discontinued Medications Carvedilol (Carvedilol), 3.125 MG PO DAILY, (Reported) Midodrine Hcl (Midodrine Hcl), 10 MG PO TID, (Reported) Discharge Statement: "Patient was advised to return to the ER or call 911 if any headaches, dizziness, shortness of breath, chest pain, abdominal pain, bleeding, fevers, or worsening of medical condition. Patient was counseled about treatment plan, medications, possible side effects, patientverbalized understanding. All questions were answered to the best of my ability. This discharge took greater then 30 minutes in planning, reviewing documentation, counseling the patient, and discussing with other team members." ASSESSMENT ASSESSMENT Assessment KAYLEE SRINIVASAN RESIDENT Mar 09, 2025 12:25
[2025-03-09 13:00] VITALS: BP 92/57; PULSE 74; RESP 17; TEMP 97.3; O2SAT 98
[2025-03-09 13:57] VITALS: BP 92/57; PULSE 74; RESP 17; TEMP 97.8; O2SAT 98
[2025-03-09] MEDS ORDERED: METO25TA93 PO (14:18)
[2025-03-09] MEDS ORDERED: NITR-52 PO (14:18)
[2025-03-09 15:11] LABS: Urine Budding Yeast OCCASIONAL /hpf (None Seen); Urine Protein, UAD Negative (Negative)
== END 2025-03-09 17:10 | disposition home or self-care (01) | DRG 190 ==
LOC: EDBD 02:24 → ER 02:24 → OVERFLOW 04:12 → TELE-WESTW 04:18
PROVIDERS: ADMIT Student in an Organized Health Care Education/Training Program; ATTEND Student in an Organized Health Care Education/Training Program
DX: I21.4 Non-ST elevation (NSTEMI) myocardial infarction (principal); I11.0 Hypertensive heart disease with heart failure; I50.22 Chronic systolic (congestive) heart failure; E11.9 Type 2 diabetes mellitus without complications; E78.5 Hyperlipidemia, unspecified; I25.10 Atherosclerotic heart disease of native coronary artery without angina pectoris; N39.0 Urinary tract infection, site not specified; Z95.1 Presence of aortocoronary bypass graft; I25.2 Old myocardial infarction; Z88.8 Allergy status to other drugs, medicaments and biological substances; Z95.5 Presence of coronary angioplasty implant and graft; Z79.2 Long term (current) use of antibiotics; Z79.899 Other long term (current) drug therapy; Z83.3 Family history of diabetes mellitus; Z71.6 Tobacco abuse counseling; Z72.0 Tobacco use
CPT/HCPCS: 36415; 71045; 80048; 80053; 80162; 81001; 82962; 83735; 83880; 84443; 84484; 85025; 87086; 93005; 96372; 96374; G0378; J1815

== ENCOUNTER 2025-04-20 16:15 | Inpatient (IN) | payer MEDICAID ==
[~2025-04-20] VITALS: Ht 162.6 cm; Wt 60.2 kg
[2025-04-20 01:00] VITALS: BP 119/53; PULSE 50; RESP 18; TEMP 97.9; O2SAT 100
[~2025-04-20 16:15] MED LIST changes: +ASPI-543 PO; +ATOR-47 PO; -AZIT500T66 PO; +DIGO0.12 PO; +EMPA1TAB PO; -FURO20TA4 PO; +METF-370 PO; +METO25TA93 PO; +NITR-52 PO; -RANO500T3 PO; -ROSU40TA47; -SENN-105
--- NOTE | 2025-04-20 16:20 | ED.PDOC ---
SOB-HPI HPI Comments This is a 59 year old female BRIGETTE presenting to the ED with chief complaint of SOB. EMS reports patient was at her [facility] health clinic this afternoon when she begun to experience SOB with associated chest heaviness and diaphoresis, so she was taken to the next door urgent care for assistance. EMS relays that the patient was noted to be low in her O2 saturation on RA, being placed on 2L NC with 100% saturation noted. Patient states she did not take her Lasix dose this morning as she should have done. Patient denies any dizziness, syncope, cough, fever, chills, N/V, or abdominal pain. 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 Hx Family History Family History: Reviewed,noncontributory to illness Social History Smoker: Non-Smoker Alcohol: Denies ETOH Use Drugs: Denies Drug Use Lives In: Home Constitutional: denies: chills, diaphoresis, fatigue, fever, malaise, sweats, weakness, others EENTM: denies: blurred vision, double vision, ear bleeding, ear discharge, ear drainage, ear pain, ear ringing, eye pain, eye redness, hearing loss, mouth pain, mouth swelling, nasal discharge, nose bleeding, nose congestion, nose pain, photophobia, tearing, throat pain, throat swelling, voice changes, others Respiratory: reports: shortness of breath; denies: cough, hemoptysis, orthopnea, SOB at rest, SOB with excertion, stridor, wheezing, others Cardiovascular: reports: chest pain, diaphoresis; denies: dizzy spells, Dyspnea on exertion, edema, irregular heart beat, left arm pain, lightheadedness, palpitations, PND, syncope, others Gastrointestinal: denies: abdomen distended, abdominal pain, blood streaked bowels, constipated, diarrhea, dysphagia, difficulty swallowing, hematemesis, melena, nausea, poor appetite, poor fluid intake, rectal bleeding, rectal pain, vomiting, others Genitourinary: denies: abnormal vagina bleeding, burning, dyspareunia, dysuria, flank pain, frequency, hematuria, incontinence, pain, , vagina discharge, urgency, others Neurological: denies: dizziness, fainting, headache, left sided numbness, left sided weakness, numbness, paresthesia, pre-existing deficit, right sided numbness, right sided weakness, seizure, speech problems, tingling, tremors, weakness, others Musculoskeletal: denies: back pain, gout, joint pain, joint swelling, muscle pain, muscle stiffness, neck pain, others Integumetry: denies: bruises, change in color, change in hair/nails, dryness, laceration, lesions, lumps, rash, wounds, others Allergic/Immunocompromised: denies: Difficulty Healing, Frequent Infections, Hives, Itching, others Hematologic/Lymphatic: denies: anemia, blood clots, easy bleeding, easy bruising, swollen glands, others Endocrine: denies: excessive hunger, excessive sweating, excessive thirst, excessive urination, flushing, intolerance to cold, intolerance to heat, unexplained weight gain, unexplained weight loss, others Psychiatric: denies: anxiety, bipolar disorder, depression, hopeless, panic disorder, schizophrenia, sleepless, suicidal, others All Other Systems: Reviewed and Negative Physical Exam General Appearance: Moderate Distress, Normal HEENT: Normal ENT Inspection, Pharynx Normal, TMs Normal Neck: Full Range of Motion, Non-Tender, Normal, Normal Inspection Respiratory: Chest Non-Tender, Lungs Clear, No Accessory Muscle Use, No Respiratory Distress, Normal Breath Sounds Cardiovascular: No Edema, No JVD, No Murmur, No Gallop, Normal Peripheral Pulses, Regular Rate/Rhythm Breast Exam: Deferred Gastrointestinal: No Organomegaly, Non Tender, No Pulsatile Mass, Normal Bowel Sounds, Soft Genitalia: Deferred Pelvic: Deferred Rectal: Deferred Extremities: No calf tenderness, Normal capillary refill, Normal inspection, Normal range of motion, Non-tender, No pedal edema Musculoskeletal : Apperance: Normal Neurologic: Alert, comic book designer II-XII nml as Tested, No Motor Deficits, Normal Affect, Normal Mood, No Sensory Deficits Cerebellar Function: NOT DONE Reflexes: NOT DONE Skin: Dry, Normal Color, Warm Peripheral Pulses: 3+ Radial (R), 3+ Radial (L) Lymphatic: No Adenopathy Was a procedure done? Was a procedure done?: No Differential Dx Differential Diagnosis: Anxiety, Asthma, Bronchitis, CHF, COPD X-Ray, Labs, Meds, VS Vital Signs Date Time Temp Pulse Resp B/P (MAP) Pulse Ox O2 Delivery O2 Flow Rate FiO2 04/20/25 16:34 97.8 65 17 92/48 (63) 99 97.8 04/20/25 16:34 65 17 99 Room Air* 0 21 04/20/25 16:15 67 04/20/25 16:15 97.6 86 16 100/49 100 97.6 Lab Test 04/20/25 16:26 Range/Units White Blood Count 11.1 H 4.4-10.8 10^3/uL Red Blood Count 4.51 4.0-5.20 10^6/uL Hemoglobin 12.0 L 12.2-16.2 g/dL Hematocrit 35.5 L 36.0-46.0 % Mean Corpuscular Volume 78.8 L 80.0-100.0 fL Mean Corpuscular Hemoglobin 26.6 L 28.0-32.0 pg Mean Corpuscular Hemoglobin Concent 33.8 32.0-36.0 g/dL Red Cell Distribution Width 19.3 H 11.8-14.3 % Platelet Count 258 140-450 10^3/uL Mean Platelet Volume 8.5 6.9-10.8 fL Neutrophils (%) (Auto) 51.6 37.0-80.0 % Lymphocytes (%) (Auto) 38.0 10.0-50.0 % Monocytes (%) (Auto) 7.3 0.0-12.0 % Eosinophils (%) (Auto) 2.6 0.0-7.0 % Basophils (%) (Auto) 0.5 0.0-2.0 % Neutrophils # (Auto) 5.7 1.6-8.6 10 ^3/uL Lymphocytes # (Auto) 4.2 0.4-5.4 10 ^3/uL Monocytes # (Auto) 0.8 0-1.3 10 ^3/uL Eosinophils # (Auto) 0.3 0-0.8 10 ^3/uL Basophils # (Auto) 0.1 0-0.2 10 ^3/uL Nucleated Red Blood Cells 0.0 % Sodium Level 137 136-145 mmol/L Potassium Level 3.6 3.5-5.1 mmol/L Chloride Level 104 98-107 mmol/L Carbon Dioxide Level 22 20-31 mmol/L Anion Gap 11 5-15 Blood Urea Nitrogen 24 H 9-23 mg/dL Creatinine 1.73 H 0.550-1.02 mg/dL Glomerular Filtration Rate Calc 33 >90 mL/min BUN/Creatinine Ratio 13.9 10.0-20.0 Serum Glucose 147 H 74-106 mg/dL Calcium Level 10.2 8.7-10.4 mg/dL Troponin I High Sensitivity 66 *H </=34 ng/L Current Medications Medications (Trade) Dose Ordered Sig/Jarett Route Start Time Stop Time Status Last Admin Sodium Chloride 1,000 ml @ 1,000 mls/hr Q1H ONCE IV 04/20/25 16:45 04/20/25 17:44 04/20/25 16:46 Patient alert. Blood pressure fluctuating. History of coronary artery disease. Answering questions. Establish intravenous access. Was given fluids. Reviewed her history. Cardiac marker slightly elevated. Neurologically intact. Was given Lovenox. Was given aspirin. Explained to the patient. Continue monitoring. Time of 1ST Reevaluation: 17:17 Reevaluation 1ST: Unchanged Patient Education/Counseling: Diagnosis, Treatment Family Education/Counseling: No Family Present SEPSIS Sepsis Screen Physician Orders Chest Portable (04/20/25 16:17) Urinalysis (04/20/25 16:17) Troponin-I Hs (04/20/25 17:17) Troponin-I Hs (04/20/25 19:17) Sodium Chloride 0.9% (04/20/25 16:45) Sodium Chloride 0.9% (04/20/25 16:45) Electrocardigram (04/20/25 17:17) Vital Signs Date Time Temp Pulse Resp B/P (MAP) Pulse Ox O2 Delivery O2 Flow Rate FiO2 04/20/25 16:34 97.8 65 17 92/48 (63) 99 97.8 04/20/25 16:34 65 17 99 Room Air* 0 21 04/20/25 16:15 67 04/20/25 16:15 97.6 86 16 100/49 100 97.6 Laboratory Tests Test 04/20/25 16:26 White Blood Count 11.1 10^3/uL (4.4-10.8) H Medications Medications Dose Ordered Sig/Jarett Route Start Time Stop Time Status Last Admin Dose Admin Sodium Chloride 1,000 ml @ 1,000 mls/hr Q1H ONCE IV 04/20/25 16:45 04/20/25 17:44 04/20/25 16:46 Departure 1 Departure Time of Disposition: 16:34 Impression: Primary Impression: Hypotension Qualified Codes: I95.9 - Hypotension, unspecified Additional Impressions: Chest pain of unknown etiology Demand ischemia Disposition: ADMITTED INPATIENT Admit to: Med Surg Condition: Guarded Critical Care Note Critical Care Time?: Yes (90 min-critical care time only) Stability Stability form required: No Heart Score Heart Score: Heart Score Response (Comments) Value History Highly Suspicious 2 EKG Normal 0 Age 45-64 1 Risk Factors >3 or Hx ASHD 2 Troponin Normal limit 0 Total 5 I personally scribed for CLARISSA CHENG MD ([email or web address]) on 04/20/25 at 16:20. Electronically submitted by Wil Iniguez ([email or web address]). CLARISSA CHENG MD Apr 20, 2025 16:20
[2025-04-20 16:34] VITALS: PULSE 65; RESP 17; O2SAT 99
[2025-04-20] MEDS: SODIUM CHLORIDE 0.9% 1,000 ML IV ONE ×3 (16:46→22:56)
[2025-04-20 16:54] LABS: Hematocrit 35.5 % (36.0-46.0); Hemoglobin 12.0 g/dL (12.2-16.2); Mean Corpuscular Hemoglobin 26.6 pg (28.0-32.0); Mean Corpuscular Volume 78.8 fL (80.0-100.0); Nucleated Red Blood Cells % 0.0 %
[2025-04-20 17:05] LABS: Chloride 104 mmol/L (98-107); Potassium 3.6 mmol/L (3.5-5.1); Sodium 137 mmol/L (136-145)
[2025-04-20 17:06] LABS: Anion Gap 11 (5-15); Calcium 10.2 mg/dL (8.7-10.4); Carbon Dioxide 22 mmol/L (20-31)
[2025-04-20 17:11] LABS: BUN/Creatinine Ratio 13.9 (10.0-20.0)
[2025-04-20 17:16] LABS: Blood Urea Nitrogen 24 mg/dL (9-23); Glucose 147 mg/dL (74-106)
--- NOTE | 2025-04-20 17:24 | DVH ---
CHEST RADIOGRAPH Indication: sob Technique: XY CHEST PORTABLE Comparison: None FINDINGS: Left chest single lead cardiac defibrillator device. The cardiac silhouette is borderline enlarged. The lungs demonstrate no pulmonary airspace consolidat ion. The pulmonary vasculature is unremarkable. There is no pleural effusion. There is no pneumothora x. IMPRESSION: No pulmonary airspace consolidation.
[2025-04-20] MEDS: ENOXAPARIN SOD 60 MG/0.6 ML SYRINGE SC ONE (17:54)
--- NOTE | 2025-04-20 19:10 | DVHHP2 ---
Admitting Diagnosis: Shortness of breaths History of Present Illness This is a 59 year old female BRIGETTE presenting to the ED with chief complaint of SOB. EMS reports [facility] when she begun to experience SOB with associated chest heaviness and diaphoresis, so she was taken to the next door urgent care for assistance. EMS relays that the patient was noted to be low in her O2 saturation on RA, being placed on 2L NC with 100% saturation noted. Patient states she did not take her Lasix dose this morning as she should have done. Patient denies any dizziness, syncope, cough, fever, chills, N/V, or abdominal pain. 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 Family History Family History: Reviewed,noncontributory to illness Social History Smoker: Non-Smoker Alcohol: Denies ETOH Use Drugs: Denies Drug Use Lives In: Home Patient Family History: Diabetes mellitus G8 SISTER Allergies: Coded Allergies: Atorvastatin (Verified Allergy, Unknown, 09/22/24) Home Meds Active Scripts Nitrofurantoin (Nitrofurantoin) 100 Mg Cap, 1 CAP PO BID for 5 Days, #10 CAP Prov:MAC BLEDSOE RESIDENT 03/09/25 Metoprolol Succinate (Metoprolol Succinate Er) 25 Mg Tab, 1 TAB PO DAILY for 30 Days, #30 TAB 5 Refills Prov:MAC BLEDSOE RESIDENT 03/09/25 Midodrine Hcl (Midodrine Hcl) 10 Mg Tab, 10 MG PO TID for 5 Days, #15 TAB 0 Refills Prov:TO SANDERS MD 09/28/24 Reported Medications Metformin Hydrochloride (Metformin Hcl) 500 Mg Tab, 500 MG PO IBID for 30 Days, MG 03/07/25 Empagliflozin (Jardiance) 10 Mg Tab, 10 MG PO, TAB 03/07/25 Digoxin (Digoxin) 125 Mcg Tab, 125 MCG PO DAILY, TAB 03/07/25 Atorvastatin Calcium (ATORVASTATIN CALCIUM) 80 Mg Tab, 1 TAB PO DAILY, #30 TAB 5 Refills 03/07/25 Aspirin (Aspir-Low) 81 Mg Tab, 81 MG PO DAILY for 30 Days, MG 03/07/25 Gabapentin (Gabapentin) 100 Mg Cap, 2 CAP PO BID 09/22/24 Current Medications Current Medications Medications (Trade) Dose Ordered Sig/Jarett Route PRN Reason Start Time Stop Time Status Last Admin Ceftriaxone Sodium 50 ml @ 100 mls/hr DAILY@09 IV 04/20/25 19:18 Azithromycin 250 ml @ 125 mls/hr DAILY@2100 IV 04/20/25 21:00 Sodium Chloride (Saline Lock Ns) 10 ml Q8HR IV 04/20/25 22:00 Docusate Sodium (Colace Capsule) 100 mg BIDPRN PRN PO FOR CONSTIPATION 04/20/25 19:15 Acetaminophen (Tylenol Tablet) 650 mg Q6HP PRN PO PAIN SCALE 1-3 OR TEMP>100.4 04/20/25 19:15 Acetaminophen/ Hydrocodone Bitart (Buhl 5/325MG Tab) 1 tab Q4HP PRN PO MODERATE PAIN (4-6 PAIN SCALE) 04/20/25 19:15 Ondansetron HCl (Zofran) 4 mg Q4HP PRN IV NAUSEA / VOMITING 04/20/25 19:15 Nitroglycerin (Ntrostat Sublingual) 0.4 mg Q5MINP PRN SL FOR CHEST PAIN 04/20/25 19:15 Morphine Sulfate 2 mg Q30M PRN IV FOR CHEST PAIN 04/20/25 19:15 Aspirin (Ecotrin Enteric Coated Tablet) 81 mg DAILY PO 04/21/25 10:00 Digoxin (Lanoxin Tablet) 0.125 mg DAILY PO 04/21/25 10:00 UNV Empaglifozin (Jardiance) 10 mg DAILY PO 04/21/25 10:00 UNV Gabapentin (Neurontin Capsule) 100 mg BID PO 04/20/25 22:00 Midodrine (Proamatine Tablet) 10 mg TID PO 04/20/25 22:00 Patient Own Medication 1 tab DAILY PO 04/21/25 10:00 Metoprolol Succinate (Toprol Xl) 25 mg DAILY PO 04/21/25 10:00 Diagnostic Test (Pha) (Accu-Chek Comfort Curve T) 1 strip ACHS 04/20/25 22:00 UNV Insulin Human Regular (InsuLIN R) ACHS SC 04/20/25 22:00 UNV Dextrose 50 ml UD PRN IV Blood Sugar LESS THAN 60 04/20/25 19:45 UNV Vital Signs Vital Signs Date Time Temp Pulse Resp B/P (MAP) Pulse Ox O2 Delivery O2 Flow Rate FiO2 8/29/25 18:15 57 14 121/46 (71) 99 04/20/25 16:34 97.8 97.8 04/20/25 16:34 Room Air* 0 21 Physical Exam 59 years old woman, well nourished well developed. No apparent distress HEENT-atraumatic normocephalic Heart-regular rate and rhythm Lungs clear to auscultate Abdomen soft nontender nondistended Musculoskeletal-no edema cyanosis Neuro-AO x3, no focal deficits SEPSIS Sepsis Screen Date sepsis recognized/suspect: Apr 20, 2025 Time Sepsis recognized/suspect: 1646 Recent Procedure: No On Antibiotic Therapy: No Respiratory Rate >20: No Heart Rate >90: No Temp<36 C (96.8 F) or >38.3 C: No SBP <90 or MAP <65 mmHG: No New Acute Mental Status Change: No Is the patient on CPAP, BIPAP,: No Physician Orders Chest Portable (04/20/25 16:17) Urinalysis (04/20/25 16:17) Troponin-I Hs (04/20/25 19:17) Sodium Chloride 0.9% (04/20/25 16:45) Electrocardigram (04/20/25 17:17) D-Dimer (04/20/25 19:08) Echo 2d Mode Cardiac Dop (04/20/25 19:08) * Cardiology Consult (04/20/25 19:08) Kidney (04/20/25 19:08) *[facility] (04/20/25 19:08) Respiratory Culture W/ Gs (04/20/25 19:08) Admit (04/20/25 19:12) Code Status (04/20/25 19:12) Vital Signs .PER UNIT PROTOCOL (04/20/25 19:12) Review Orders With Adm. (04/20/25 19:12) Encourage Activity As Tolerate (04/20/25 19:12) Sodium Chloride Lock (Saline Lock Ns) (04/20/25 22:00) Docusate Sodium Capsule (Colace Capsule) (04/20/25 19:15) Acetaminophen Tablet (Tylenol Tablet) (04/20/25 19:15) Notify Md Of Changes From Base (04/20/25 19:12) Advance Directive (04/20/25 19:12) Patient Condition (04/20/25 19:12) Allergies (04/20/25 19:12) Hydrocodone-Acet 5/325mg Tab (Buhl 5/32 (04/20/25 19:15) Ondansetron Hcl (Zofran) (04/20/25 19:15) Nitroglycerin Sublingual (Ntrostat Subli (04/20/25 19:15) Morphine Sulfate Injection (04/20/25 19:15) Stat Ekg For Chest Pain (04/20/25 19:12) Notify Md Of Changes From Base (04/20/25 19:12) Educational Technologist For 24 Hours (04/20/25 19:12) Emergency Dysrhythmia Protocol (04/20/25 19:12) Rhythm Strips Once Every Shift (04/20/25 19:12) Oxygen By Nasal Cannula (04/20/25 19:12) Aspirin Enteric Coated Tablet (Ecotrin E (04/21/25 10:00) Digoxin Tablet (Lanoxin Tablet) (04/21/25 10:00) Empagliflozin (Jardiance) (04/21/25 10:00) Gabapentin Capsule (Neurontin Capsule) (04/20/25 22:00) Midodrine Tablet (Proamatine Tablet) (04/20/25 22:00) (Nf) Atorvastatin Calcium (04/21/25 10:00) Metoprolol Xl Succinate (Toprol Xl) (04/21/25 10:00) Sodium Chloride 0.9% (04/20/25 19:15) Ceftriaxone 1gm/50ml D5w (Rocephin) (04/20/25 19:18) Azithromycin 500mg/ 250ml (Zithromax 50 (04/20/25 21:00) Glucose Blood (Accu-Chek Comfort Curve T (04/20/25 22:00) Insulin R (Human) (Insulin R) (04/20/25 22:00) Dextrose 50% Syringe (04/20/25 19:45) Vital Signs Date Time Temp Pulse Resp B/P (MAP) Pulse Ox O2 Delivery O2 Flow Rate FiO2 04/20/25 18:15 57 14 121/46 (71) 99 04/20/25 16:34 97.8 65 17 92/48 (63) 99 97.8 04/20/25 16:34 65 17 99 Room Air* 0 21 04/20/25 16:15 67 04/20/25 16:15 97.6 86 16 100/49 100 97.6 Laboratory Tests Test 04/20/25 16:26 White Blood Count 11.1 10^3/uL (4.4-10.8) H Medications Medications Dose Ordered Sig/Jarett Route Start Time Stop Time Status Last Admin Dose Admin Aspirin 325 mg ONCE ONCE PO 04/20/25 17:45 04/20/25 17:46 DC 04/20/25 17:54 Sodium Chloride 1,000 ml @ 150 mls/hr Q6H40M ONCE IV 04/20/25 16:45 04/20/25 23:24 04/20/25 17:45 Sodium Chloride 1,000 ml @ 1,000 mls/hr Q1H ONCE IV 04/20/25 16:45 04/20/25 17:44 DC 04/20/25 16:46 Results Labs Test 04/20/25 19:20 04/20/25 16:26 Range/Units White Blood Count 11.1 H 4.4-10.8 10^3/uL Red Blood Count 4.51 4.0-5.20 10^6/uL Hemoglobin 12.0 L 12.2-16.2 g/dL Hematocrit 35.5 L 36.0-46.0 % Mean Corpuscular Volume 78.8 L 80.0-100.0 fL Mean Corpuscular Hemoglobin 26.6 L 28.0-32.0 pg Mean Corpuscular Hemoglobin Concent 33.8 32.0-36.0 g/dL Red Cell Distribution Width 19.3 H 11.8-14.3 % Platelet Count 258 140-450 10^3/uL Mean Platelet Volume 8.5 6.9-10.8 fL Neutrophils (%) (Auto) 51.6 37.0-80.0 % Lymphocytes (%) (Auto) 38.0 10.0-50.0 % Monocytes (%) (Auto) 7.3 0.0-12.0 % Eosinophils (%) (Auto) 2.6 0.0-7.0 % Basophils (%) (Auto) 0.5 0.0-2.0 % Neutrophils # (Auto) 5.7 1.6-8.6 10 ^3/uL Lymphocytes # (Auto) 4.2 0.4-5.4 10 ^3/uL Monocytes # (Auto) 0.8 0-1.3 10 ^3/uL Eosinophils # (Auto) 0.3 0-0.8 10 ^3/uL Basophils # (Auto) 0.1 0-0.2 10 ^3/uL Nucleated Red Blood Cells 0.0 % Sodium Level 137 136-145 mmol/L Potassium Level 3.6 3.5-5.1 mmol/L Chloride Level 104 98-107 mmol/L Carbon Dioxide Level 22 20-31 mmol/L Anion Gap 11 5-15 Blood Urea Nitrogen 24 H 9-23 mg/dL Creatinine 1.73 H 0.550-1.02 mg/dL Glomerular Filtration Rate Calc 33 >90 mL/min BUN/Creatinine Ratio 13.9 10.0-20.0 Serum Glucose 147 H 74-106 mg/dL Calcium Level 10.2 8.7-10.4 mg/dL Primary Diagnosis Leukocytosis likely reactive rule out infection Elevated troponin rule out ACS CARLOS versus CARLOS on CKD Plan Elevated troponin Check echo of the heart ptosis rule out ACS Cardiology consult Ultrasound renal to assess for acute kidney injury IV fluids Nephrology consult Check pro count, CRP for elevated WBC Check D-dimer Start ceftriaxone and azithromycin for possible pneumonia versus UTI Check blood culture and sputum culture Full code Lovenox for DVT prophylaxis No GI prophylaxis needed Plan discussed with: Patient Problems List: (1) Demand ischemia Status: Acute (2) Acute chest pain Status: Acute (3) Generalized weakness Status: Acute Date of Service: Apr 20, 2025 Billing Provider: LI KOENIG MD Common Visit Codes: [id number] INP/OBS CARE (HIGH) LI KOENIG MD Apr 20, 2025 19:10
[2025-04-20] MEDS ORDERED: DOCUSATE SOD 100 MG CAP PO PRN (19:15)
[2025-04-20] MEDS ORDERED: MORPHINE SULFATE INJ 2 MG/ml SYRG IV PRN (19:15)
[2025-04-20] MEDS ORDERED: ONDANSETRON HCL 4 MG/2 ML VIAL IV PRN (19:15)
[2025-04-20] MEDS ORDERED: HYDROcodone-ACET 5/325MG TAB PO PRN (19:15)
[2025-04-20] MEDS ORDERED: NITROGLYCERIN 0.4 MG SL TAB SL PRN (19:15)
[2025-04-20] MEDS ORDERED: ACETAMINOPHEN 325 MG TAB PO PRN (19:15)
[2025-04-20] MEDS ORDERED: DEXTROSE (50%) 50ML SYRG IV PRN (19:45)
--- NOTE | 2025-04-20 19:49 | DVH ---
INDICATION: CARLOS versus CARLOS on CKD TECHNIQUE: Multiple real-time sonographic images of the kidneys and bladder were obtained. COMPARISON: None FINDINGS: The right kidney measures 9.3 cm in length, which is normal in size. There is normal echoge nicity of the right kidney. There is trace right hydronephrosis. The left kidney measures 10.5 cm in length, which is normal in size. There is normal echogenicity of the left kidney. There is mild prominence of the renal pelvis without hydronephrosis. No large intraluminal masses are seen in the bladder. At the time of the examination, the bladder vol ume is calculated at 308 cc. Incidental note is made of prominently echogenic liver. IMPRESSION: Trace right hydronephrosis. Prominence of the left renal pelvis without brianna hydronephrosis. This m ay be secondary to distended urinary bladder. The liver is diffusely echogenic which may be secondary to steatosis or another diffuse hepatic proce ss. Correlate clinically and with liver function tests.
[2025-04-20 19:50] VITALS: PULSE 62; RESP 20; O2SAT 97
[2025-04-20] MEDS: AZITHROMYCIN 500MG/ 250ML 250 ML IV SCH (21:00)
[2025-04-20] MEDS: InsuLIN REG 1unit/0.01ml Soln (100units/ml) SC SCH (21:54)
[2025-04-20] MEDS: GABAPENTIN 100 MG CAP PO SCH (21:55)
[2025-04-20] MEDS: ACCU-CHEK COMFORT CURVE STRIP VI SCH (21:55)
[2025-04-20] MEDS: SODIUM CHLOR 0.9% PF (SALINE LOCK) 10ML VIAL/SYR IV SCH (21:55)
[2025-04-20] MEDS: MIDODRINE HCL 10 MG TAB PO SCH (21:55)
[2025-04-20 22:15] VITALS: BP 107/45; PULSE 57; RESP 17; TEMP 98.2; O2SAT 99
[2025-04-20 22:16] VITALS: BP 119/53; PULSE 50; RESP 18; TEMP 97.9; O2SAT 100
[2025-04-20 22:51] LABS: Urine Protein, UAD 1+ (Negative)
[2025-04-20 23:18] VITALS: PULSE 57; RESP 18; O2SAT 99
--- NOTE | 2025-04-20 23:23 | ECG ---
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
[2025-04-21] VITALS (9 sets, daily range): BP systolic 101–120; BP diastolic 32–67; PULSE 45–67; RESP 17–20; TEMP 97.4–98.5; O2SAT 96–100
[2025-04-21 06:57] LABS: Alanine Aminotransferase 18 U/L (7-40); Albumin 3.8 g/dL (3.2-4.8); Alkaline Phosphatase 74 U/L (46-116); Anion Gap 7 (5-15); BUN/Creatinine Ratio 15.2 (10.0-20.0); Blood Urea Nitrogen 21 mg/dL (9-23); Carbon Dioxide 22 mmol/L (20-31); Sodium 141 mmol/L (136-145); Total Protein 6.1 g/dL (5.7-8.2)
[2025-04-21 07:00] LABS: Bilirubin, Total 0.3 mg/dL (0.2-1.0); Calcium 8.6 mg/dL (8.7-10.4); Chloride 112 mmol/L (98-107); Glucose 143 mg/dL (74-106); Hematocrit 30.2 % (36.0-46.0); Hemoglobin 10.2 g/dL (12.2-16.2); Mean Corpuscular Hemoglobin 26.8 pg (28.0-32.0); Mean Corpuscular Volume 79.0 fL (80.0-100.0); Nucleated Red Blood Cells % 0.1 %; Potassium 2.9 mmol/L (3.5-5.1)
[2025-04-21] MEDS: ASPirin-EC 81 mg tab PO SCH (08:47)
[2025-04-21] MEDS: EMPAGLIFLOZIN 10 MG TAB PO SCH (08:47)
[2025-04-21] MEDS: DIGOXIN 0.125 MG TAB PO SCH (08:48)
[2025-04-21] MEDS: CRESTOR 40MG PO SCH (10:00)
[2025-04-21] MEDS: METOPROLOL SUCCINATE XL 50 MG TAB PO SCH (10:00)
[2025-04-21 14:32] LABS: COVID19 ANTIGEN SOFIA FIA NEGATIVE (NEGATIVE)
--- NOTE | 2025-04-21 14:58 | DVHSR ---
APPROVED REPORT EXAM: Two-dimensional and M-mode echocardiogram with Doppler and color Doppler. Blood Pressure: 101/50 mmHg INDICATION Elevated Trops Rule out ACS Surgery/Intervention Pacemaker: RISK FACTORS Height: 5' 4", Weight: 132 DIMENSIONS LVDd5.1 (3.8-5.7cm)LA (2D)4.6 (1.9-4.0cm)Aortic Root3.0 (2.0-3.7cm) LVDs4.6 (2.5-4.0cm)LA (MM) (1.9-4.0cm)Aortic Cusp Exc1.4 (1.5-2.0cm) EF (%) 20.0 (55-70%)Rt. Atrium4.0 (1.9-4.0cm)Asc. Aorta cm IVSd1.0 (0.7-1.1cm)RV (D) (1.8-2.4cm) PWd1.0 (0.7-1.1cm) Mitral Valve MitralMitral Stenosis E wave1.20m/sMV Mean GR.mmHg A wave1.10m/sMV Peak GR.mmHg E/A ratio1.12D MVAcm2 Aortic Valve Aortic ValveAortic Stenosis V10.80m/Blaire Mean GR.4mmHg V21.40m/Blaire Peak GR.8mmHg LVOT Diameter2.3 (1.8-2.4cm)Doppler AVA2.37cm2 Pulmonic Valve V20.60m/s Tricuspid Valve TR Velocity2.30m/s [id number] Conclusion Technically good study. Sinus rhythm. Mild LV enlargement with concentric LVH. Valves are normal. Left ventricular function is diminished. There is notably severe left ventricular dysfunction. EF i s approximately 25% with global hypokinesis. Normal RV function. Dopplers unremarkable. No pericardial effusion masses or vegetations.
--- NOTE | 2025-04-21 14:59 | DVHINCON2 ---
Date Seen: Apr 21, 2025 Referring Physician Pedro Reason for Consultation Elevated Troponins History of Present Illness 59-year-old female with PMH for CAD s/p CABG, ischemic cardiomyopathy, PTCA, CHF, defibrillator, diabetes, hypertension presents to the hospital with worsening shortness of breath and chest heaviness. Apparently patient was at urgent Care for assistance for which she was noted to have low O2 saturation on room air placed on 2 L nasal cannula and transferred to the ER. Upon evaluation in the ER patient found to have mildly elevated troponins trending 66, 62, 70, 83. CXR negative for pulmonary airspace consolidation/disease. EKG reviewed and shows sinus rhythm at 67 beats per minute. No acute ST and T-wave abnormality. Past Medical History As above. Past Surgical History As stated above Family History: Diabetes mellitus G8 SISTER Allergies: Coded Allergies: Atorvastatin (Verified Allergy, Unknown, 09/22/24) Home Meds Active Scripts Nitrofurantoin (Nitrofurantoin) 100 Mg Cap, 1 CAP PO BID for 5 Days, #10 CAP Prov:MAC BLEDSOE 03/09/25 Metoprolol Succinate (Metoprolol Succinate Er) 25 Mg Tab, 1 TAB PO DAILY for 30 Days, #30 TAB 5 Refills Prov:MAC BLEDSOE 03/09/25 Midodrine Hcl (Midodrine Hcl) 10 Mg Tab, 10 MG PO TID for 5 Days, #15 TAB 0 Refills Prov:TO SANDERS MD 09/28/24 Reported Medications Metformin Hydrochloride (Metformin Hcl) 500 Mg Tab, 500 MG PO IBID for 30 Days, MG 03/07/25 Empagliflozin (Jardiance) 10 Mg Tab, 10 MG PO, TAB 03/07/25 Digoxin (Digoxin) 125 Mcg Tab, 125 MCG PO DAILY, TAB 03/07/25 Atorvastatin Calcium (ATORVASTATIN CALCIUM) 80 Mg Tab, 1 TAB PO DAILY, #30 TAB 5 Refills 03/07/25 Aspirin (Aspir-Low) 81 Mg Tab, 81 MG PO DAILY for 30 Days, MG 03/07/25 Gabapentin (Gabapentin) 100 Mg Cap, 2 CAP PO BID 09/22/24 Current Medications Current Medications Medications (Trade) Dose Ordered Sig/Jarett Route PRN Reason Start Time Stop Time Status Last Admin Ceftriaxone Sodium 50 ml @ 100 mls/hr DAILY@09 IV 04/20/25 19:18 8/30/25 08:47 Azithromycin 250 ml @ 125 mls/hr DAILY@2100 IV 04/20/25 21:00 04/20/25 21:00 Sodium Chloride (Saline Lock Ns) 10 ml Q8HR IV 04/20/25 22:00 04/21/25 11:46 Docusate Sodium (Colace Capsule) 100 mg BIDPRN PRN PO FOR CONSTIPATION 04/20/25 19:15 04/21/25 09:23 DC Acetaminophen (Tylenol Tablet) 650 mg Q6HP PRN PO PAIN SCALE 1-3 OR TEMP>100.4 04/20/25 19:15 Acetaminophen/ Hydrocodone Bitart (Presho 5/325MG Tab) 1 tab Q4HP PRN PO MODERATE PAIN (4-6 PAIN SCALE) 04/20/25 19:15 Ondansetron HCl (Zofran) 4 mg Q4HP PRN IV NAUSEA / VOMITING 04/20/25 19:15 04/21/25 09:23 DC Nitroglycerin (Ntrostat Sublingual) 0.4 mg Q5MINP PRN SL FOR CHEST PAIN 04/20/25 19:15 04/21/25 09:23 DC Morphine Sulfate 2 mg Q30M PRN IV FOR CHEST PAIN 04/20/25 19:15 04/21/25 09:23 DC Aspirin (Ecotrin Enteric Coated Tablet) 81 mg DAILY PO 04/21/25 10:00 04/21/25 08:47 Digoxin (Lanoxin Tablet) 0.125 mg DAILY PO 04/21/25 10:00 Empaglifozin (Jardiance) 10 mg DAILY PO 04/21/25 10:00 04/21/25 08:47 Gabapentin (Neurontin Capsule) 100 mg BID PO 04/20/25 22:00 04/21/25 08:47 Midodrine (Proamatine Tablet) 10 mg TID PO 04/20/25 22:00 04/21/25 13:43 Patient Own Medication 1 tab DAILY PO 04/21/25 10:00 Metoprolol Succinate (Toprol Xl) 25 mg DAILY PO 04/21/25 10:00 Diagnostic Test (Pha) (Accu-Chek Comfort Curve T) 1 strip ACHS 04/20/25 22:00 04/21/25 11:44 Insulin Human Regular (InsuLIN R) ACHS SC 04/20/25 22:00 04/21/25 11:45 Dextrose 50 ml UD PRN IV Blood Sugar LESS THAN 60 04/20/25 19:45 Review of Systems Constitutional: No: Fever, Chills, Sweats, Weakness, Malaise, Other Eyes: No: Pain, Vision change, Conjunctivae inflammation, Eyelid inflammation, Other, Redness ENT: No: Ear pain, Ear discharge, Nose pain, Nose discharge, Nose congestion, Mouth pain, Mouth swelling, Throat pain, Throat swelling, Other Respiratory: No: Cough, Dry, Shortness of breath, SOB with exertion, Wheezing, Hemoptysis, Pleuritic Pain, Sputum, Wheezing, Other Cardiovascular: ; No: Chest Pain Palpitations, Orthopnea, Paroxysmal Noc. D yspnea, Edema, Lt Headedness, Other Gastrointestinal: No: Nausea, Vomiting, Abdominal Pain, Diarrhea, Constipation, Melena, Hematochezia, Other Genitourinary: No Dysuria, No Frequency, No Incontinence, No Hematuria, No Retention, No Other Musculoskeletal: neck pain; No: other, shoulder pain, arm pain, back pain, hand pain, leg pain, foot pain Skin: No: Rash, Lesions, Jaundice, Bruising, Other Neurological: Other (Dizziness, headache.); No: Weakness, Numbness, Incoordination, Change in speech, Confusion, Seizures Vital Signs Vital Signs Date Time Temp Pulse Resp B/P (MAP) Pulse Ox O2 Delivery O2 Flow Rate FiO2 04/21/25 08:48 58 04/21/25 08:00 17 100 Nasal Cannula* 2 28 04/21/25 05:00 98.2 101/50 (67) 98.2 Physical Exam General appearance: Ill-appearing, in no acute distress. HEENT: Exam shows: Normocephalic, atraumatic, PERRLA, EOMI Neck: Supple, no bruits Chest: Equal chest excursion bilaterally. Breath sounds diminished. Heart: Rhythm: Regular rate; no murmur or gallop Abdomen: Exam shows: Soft, nontender, nondistended Musculoskeletal: No clubbing, no cyanosis, no lower extremity edema Dermatology: Skin warm, moist. Neurological: Exam shows: Alert and oriented x4, normal speech Available prior records, labs, EKG, rhythm strips reviewed and interpreted Labs/Diagnostic Data Labs Test 04/21/25 13:45 04/21/25 11:07 04/21/25 06:16 04/20/25 22:00 Range/Units Influenza Type A Antigen Negative Negative Influenza Type B Antigen Negative Negative SARS-CoV-2 Antigen (Rapid) Negative NEGATIVE POC Glucose 340 H 70-106 mg/dl White Blood Count 7.9 # 4.4-10.8 10^3/uL Red Blood Count 3.82 L 4.0-5.20 10^6/uL Hemoglobin 10.2 L 12.2-16.2 g/dL Hematocrit 30.2 #L 36.0-46.0 % Mean Corpuscular Volume 79.0 L 80.0-100.0 fL Mean Corpuscular Hemoglobin 26.8 L 28.0-32.0 pg Mean Corpuscular Hemoglobin Concent 33.9 32.0-36.0 g/dL Red Cell Distribution Width 18.8 H 11.8-14.3 % Platelet Count 220 140-450 10^3/uL Mean Platelet Volume 8.7 6.9-10.8 fL Neutrophils (%) (Auto) 44.1 37.0-80.0 % Lymphocytes (%) (Auto) 42.6 10.0-50.0 % Monocytes (%) (Auto) 9.5 0.0-12.0 % Eosinophils (%) (Auto) 3.2 0.0-7.0 % Basophils (%) (Auto) 0.6 0.0-2.0 % Neutrophils # (Auto) 3.5 1.6-8.6 10 ^3/uL Lymphocytes # (Auto) 3.4 0.4-5.4 10 ^3/uL Monocytes # (Auto) 0.7 0-1.3 10 ^3/uL Eosinophils # (Auto) 0.3 0-0.8 10 ^3/uL Basophils # (Auto) 0.1 0-0.2 10 ^3/uL Nucleated Red Blood Cells 0.1 % Sodium Level 141 136-145 mmol/L Potassium Level 2.9 L 3.5-5.1 mmol/L Chloride Level 112 H 98-107 mmol/L Carbon Dioxide Level 22 20-31 mmol/L Anion Gap 7 5-15 Blood Urea Nitrogen 21 9-23 mg/dL Creatinine 1.38 H 0.550-1.02 mg/dL Glomerular Filtration Rate Calc 44 >90 mL/min BUN/Creatinine Ratio 15.2 10.0-20.0 Serum Glucose 143 H 74-106 mg/dL Calcium Level 8.6 L 8.7-10.4 mg/dL Total Bilirubin 0.3 0.2-1.0 mg/dL Aspartate Amino Transferase (AST) 19 13-40 U/L Alanine Aminotransferase (ALT) 18 7-40 U/L Alkaline Phosphatase 74 46-116 U/L Troponin I High Sensitivity 83 *H </=34 ng/L B-Type Natriuretic Peptide 265.06 0-100 pg/mL Total Protein 6.1 5.7-8.2 g/dL Albumin 3.8 3.2-4.8 g/dL Digoxin Level 1.06 0.8-2 ng/mL Urine Color Light-yellow Yellow Urine Clarity Turbid H Clear Urine pH 5.5 5.0-9.0 Urine Specific [place] 1.013 1.001-1.035 Urine Protein 1+ H Negative Urine Ketones Negative Negative Urine Blood Trace H Negative /uL Urine Nitrite Negative Negative Urine Bilirubin Negative Negative Urine Urobilinogen Normal Negative mg/dL Urine Leukocyte Esterase Trace Negative /uL Urine RBC 1 0 - 4 /hpf Urine Microscopic WBC 8 H 0-5 /HPF Urine Squamous Epithelial Cells Few <5 /hpf Urine Bacteria None seen None Seen /hpf Urine Hyaline Casts Few 0 - 2 /lpf Urine Mucus Few None Seen Urine Glucose Normal Normal mg/dL Test 04/20/25 16:26 Range/Units D-Dimer, Quantitative 0.43 0.0-0.49 mg/L FEU Assessment * NSTEMI - likely type 2 VT from demand ischemia. Patient with severe CAD not amenable to any kind of intervention based on catheterization performed 02/2024. Images reviewed. Conservative medical management advised. Continue aspirin and statin. Previously on Plavix so was taken off due to severe anemia needing PRBC transfusion in the past. Check echo. * Acute on chronic HFrEF - we will hold off on diuresing at this time due to elevated creatinine. Nephrology on board, follow up recs. Avoid overload. * HX severe cardiomyopathy EF 10-15% previously - continue EGD MT, on metoprolol 25 mg p.o. daily. Samuel/Arb held in setting of CARLOS, may add if BP tolerates, and cleared by Nephrology. Case Discussed with Dr Salgado. Follow up echo. Continue aspirin and statin. No cardiac intervention indicated at this time due to previous severe CAD not amenable to any kind of intervention based on catheterization performed in 02/2024. Continue medical management. Defer diuresis/volume control to Nephrology given CARLOS. Critical care, time spent: 40 minutes This medical document was created using an electronic medical record system with voice recognition software and computerized dictation system. Although this document has been carefully reviewed, there might still be some phonetic and typographical errors. Occasional wrong-word or ``sound-alike substitutions may have occurred due to the inherent limitations of voice recognition software. These areas are purely typographical due to imperfections of the software programs and do not reflect any compromise in the patient's medical care. Please read the chart carefully and recognize, using context, where these substitutions have occurred. Thank you for allowing me to participate in the management of this patient. The treatment plan was discussed with and agreed upon by patient/family including requesting consultants and ordering of imaging/procedures. Plan discussed with: Patient NYHA Physical activity limitations: Class3(Marked) ordinary Date of Service: Apr 21, 2025 Billing Provider: LAWSON MACKEY Cardiology Common Codes: [id number] INP/OBS CARE (High), [id number] CARE 30-74 MIN LAWSON MACKEY Apr 21, 2025 14:59
--- NOTE | 2025-04-21 15:40 | DVHPN2 ---
Assessment/Plan Assessment/Plan Subjective History of Present Illness Shanna Francis is a 59-year-old female with a history of heart failure, diabetes, hypertension, and chronic kidney disease stage 3A, who presented to the hospital with shortness of breath, chest tightness, and diaphoresis. She was found to have low oxygen saturation and was placed on 2 liters of oxygen with improvement. The patient reported skipping her last 6 doses of medication on the morning of admission. In the emergency department, she received 2 liters of IV fluids and aspirin. When seen later, she reported improvement in both chest pain and shortness of breath. She was able to lay flat on room air. The patient's home medications include digoxin, aspirin, midodrine, gabapentin, metoprolol, and Jardiance, which will be resumed during her hospital stay. Objective Vital Signs - Heart Rate: 58 bpm - Respiratory Rate: 17 breaths per minute - Blood Pressure: 119/53 mmHg - Oxygen Saturation: 100% on 2 liters, 96% on room air Physical Examination General: Alert and oriented times 4. Respiratory: Clear breath sounds. Cardiovascular: S1-S2 regular rate and rhythm. No JVD. Abdomen: Soft, non-tender. Skin: Moist mucous membranes. Musculoskeletal: No lower extremity edema. Laboratory, Imaging, and Diagnostic Test Results - Potassium: 2.9 - Creatinine: 1.7, trending down to 1.3 - Troponin: ranging from 60 to 80 - BNP: 265 - Glucose: elevated - Hemoglobin: 12 - MCV: 78 - MCH: 26 - Chest X-ray: Normal, shows post-surgical changes and ICD in place - Abdominal ultrasound: Liver echogenic, likely hepatic steatosis; trace right hydronephrosis in extended urinary bladder - Echocardiogram: Ejection fraction 25% with global hypokinesis and normal RV function - EKG: Normal sinus rhythm - Urinalysis: Relatively bland Assessment & Plan Assessment - Heart failure with reduced ejection fraction - Chronic kidney disease, stage 3A - Type 2 diabetes mellitus, insulin-dependent - Hypertension - Coronary artery bypass graft status - Hypokalemia - Microcytic anemia - Hepatic steatosis - Shortness of breath - Chest pain - UTI? symptomatic althoug UA bland Plan - Resume home medications: digoxin, aspirin, midodrine, gabapentin, metoprolol, Jardiance - Resume home diuresis with Lasix - Continue oxygen therapy at 2 liters as needed - Monitor potassium levels (current 2.9) - Monitor creatinine levels (trending down from 1.7 to 1.3) - Continue ceftriaxone - Await results of COVID and influenza test - replete K - lantus 20 lispro 10TIDAC Diet: cardiac DVT PPX: Ambulatory Code Status: Full Code. Plan discussed with: Patient Date of Service: Apr 21, 2025 Billing Provider: GERI ROMERO MD Common Visit Codes: [id number] INP/OBS CARE(HIGH) GERI ROMERO MD Apr 21, 2025 15:40
[2025-04-21] MEDS: GABAPENTIN 300 MG CAP PO ONE (16:55)
[2025-04-21] MEDS: INSULIN LISPRO (HUMAN) 100 UNITS/ML ML SC SCH ×2 (16:55→16:56)
--- NOTE | 2025-04-21 21:48 | DVHINCON2 ---
Date of service: Apr 21, 2025 Reason for Consultation casey History of Present Illness 59 years old female with medical history of Congestive heart failure, diabetes, hypertension, Chronic kidney disease presented with chief complaints of shortness of breath chest tightness Today she reports she is feeling fine denies any complaints She also has history of CABG Past Medical History As per HPI Past Surgical History As per HPI Allergies: Coded Allergies: Atorvastatin (Verified Allergy, Unknown, 09/22/24) Home Meds Active Scripts Nitrofurantoin (Nitrofurantoin) 100 Mg Cap, 1 CAP PO BID for 5 Days, #10 CAP Prov:MAC BLEDSOE RESIDENT 03/09/25 Metoprolol Succinate (Metoprolol Succinate Er) 25 Mg Tab, 1 TAB PO DAILY for 30 Days, #30 TAB 5 Refills Prov:MAC BLEDSOE RESIDENT 03/09/25 Midodrine Hcl (Midodrine Hcl) 10 Mg Tab, 10 MG PO TID for 5 Days, #15 TAB 0 Refills Prov:TO SANDERS MD 09/28/24 Reported Medications Metformin Hydrochloride (Metformin Hcl) 500 Mg Tab, 500 MG PO IBID for 30 Days, MG 03/07/25 Empagliflozin (Jardiance) 10 Mg Tab, 10 MG PO, TAB 03/07/25 Digoxin (Digoxin) 125 Mcg Tab, 125 MCG PO DAILY, TAB 03/07/25 Atorvastatin Calcium (ATORVASTATIN CALCIUM) 80 Mg Tab, 1 TAB PO DAILY, #30 TAB 5 Refills 03/07/25 Aspirin (Aspir-Low) 81 Mg Tab, 81 MG PO DAILY for 30 Days, MG 03/07/25 Gabapentin (Gabapentin) 100 Mg Cap, 2 CAP PO BID 09/22/24 Current Medications Current Medications Medications (Trade) Dose Ordered Sig/Jarett Route PRN Reason Start Time Stop Time Status Last Admin Sodium Chloride (Saline Lock Ns) 10 ml Q8HR IV 04/20/25 22:00 04/21/25 11:46 Aspirin (Ecotrin Enteric Coated Tablet) 81 mg DAILY PO 04/21/25 10:00 04/21/25 08:47 Digoxin (Lanoxin Tablet) 0.125 mg DAILY PO 04/21/25 10:00 Empaglifozin (Jardiance) 10 mg DAILY PO 04/21/25 10:00 04/21/25 08:47 Gabapentin (Neurontin Capsule) 100 mg BID PO 04/20/25 22:00 04/21/25 15:41 DC 04/21/25 08:47 Midodrine (Proamatine Tablet) 10 mg TID PO 04/20/25 22:00 04/21/25 13:43 Patient Own Medication 1 tab DAILY PO 04/21/25 10:00 Metoprolol Succinate (Toprol Xl) 25 mg DAILY PO 04/21/25 10:00 Diagnostic Test (Pha) (Accu-Chek Comfort Curve T) 1 strip ACHS 04/20/25 22:00 04/21/25 16:55 Insulin Human Regular (InsuLIN R) ACHS SC 04/20/25 22:00 04/21/25 16:38 DC 04/21/25 11:45 Gabapentin (Neurontin Capsule) 300 mg BID PO 04/21/25 22:00 UNV Gabapentin (Neurontin Capsule) 300 mg DAILY PO 04/22/25 10:00 Insulin Glargine (Lantus) 20 units HS SC 04/21/25 22:00 Insulin Human Lispro (HumaLOG) 10 units AC SC 04/21/25 17:00 04/21/25 16:55 Insulin Human Lispro (HumaLOG) AC SC 04/21/25 17:00 04/21/25 16:56 Family History: Diabetes mellitus G8 SISTER Review of Systems As documented in HPI H&P Exam Vital Signs/I&O Vital Sign Date Time Temp Pulse Resp B/P (MAP) Pulse Ox O2 Delivery O2 Flow Rate FiO2 04/21/25 17:48 120/53 (75) 04/21/25 17:00 97.4 51 17 96 97.4 04/21/25 08:00 Nasal Cannula* 2 28 Intake and Output 04/20/25 04/21/25 19:00 07:00 Intake Total 150 ml 400 ml Balance 150 ml 400 ml Intake Oral 400 ml IV Total 150 ml # Voids 1 Physical Exam General-not in any distress HEENT-normocephalic, no icterus, no pallor, neck supple Respiratory-fair air entry bilateral, no rhonchi, no wheeze [id number] heard, no murmurs appreciated Abdominal-soft, nontender, nondistended Musculoskeletal-no pedal edema, no calf tenderness Genitourinary-deferred Neuro-awake alert oriented x3, Psychiatric-not agitated, cooperative, Labs/Diagnostic Data Labs/Diagnostic Data Laboratory Tests Test 04/21/25 16:47 04/21/25 13:45 04/21/25 11:07 04/21/25 06:16 Range/Units POC Glucose 294 H 340 H 70-106 mg/dl Influenza Type A Antigen Negative Negative Influenza Type B Antigen Negative Negative SARS-CoV-2 Antigen (Rapid) Negative NEGATIVE White Blood Count 7.9 # 4.4-10.8 10^3/uL Red Blood Count 3.82 L 4.0-5.20 10^6/uL Hemoglobin 10.2 L 12.2-16.2 g/dL Hematocrit 30.2 #L 36.0-46.0 % Mean Corpuscular Volume 79.0 L 80.0-100.0 fL Mean Corpuscular Hemoglobin 26.8 L 28.0-32.0 pg Mean Corpuscular Hemoglobin Concent 33.9 32.0-36.0 g/dL Red Cell Distribution Width 18.8 H 11.8-14.3 % Platelet Count 220 140-450 10^3/uL Mean Platelet Volume 8.7 6.9-10.8 fL Neutrophils (%) (Auto) 44.1 37.0-80.0 % Lymphocytes (%) (Auto) 42.6 10.0-50.0 % Monocytes (%) (Auto) 9.5 0.0-12.0 % Eosinophils (%) (Auto) 3.2 0.0-7.0 % Basophils (%) (Auto) 0.6 0.0-2.0 % Neutrophils # (Auto) 3.5 1.6-8.6 10 ^3/uL Lymphocytes # (Auto) 3.4 0.4-5.4 10 ^3/uL Monocytes # (Auto) 0.7 0-1.3 10 ^3/uL Eosinophils # (Auto) 0.3 0-0.8 10 ^3/uL Basophils # (Auto) 0.1 0-0.2 10 ^3/uL Nucleated Red Blood Cells 0.1 % Sodium Level 141 136-145 mmol/L Potassium Level 2.9 L 3.5-5.1 mmol/L Chloride Level 112 H 98-107 mmol/L Carbon Dioxide Level 22 20-31 mmol/L Anion Gap 7 5-15 Blood Urea Nitrogen 21 9-23 mg/dL Creatinine 1.38 H 0.550-1.02 mg/dL Glomerular Filtration Rate Calc 44 >90 mL/min BUN/Creatinine Ratio 15.2 10.0-20.0 Serum Glucose 143 H 74-106 mg/dL Calcium Level 8.6 L 8.7-10.4 mg/dL Total Bilirubin 0.3 0.2-1.0 mg/dL Aspartate Amino Transferase (AST) 19 13-40 U/L Alanine Aminotransferase (ALT) 18 7-40 U/L Alkaline Phosphatase 74 46-116 U/L Troponin I High Sensitivity 83 *H </=34 ng/L B-Type Natriuretic Peptide 265.06 0-100 pg/mL Total Protein 6.1 5.7-8.2 g/dL Albumin 3.8 3.2-4.8 g/dL Digoxin Level 1.06 0.8-2 ng/mL Test 04/21/25 06:14 04/20/25 22:00 04/20/25 21:41 04/20/25 19:20 Range/Units POC Glucose 155 H 205 H 70-106 mg/dl Urine Color Light-yellow Yellow Urine Clarity Turbid H Clear Urine pH 5.5 5.0-9.0 Urine Specific [place] 1.013 1.001-1.035 Urine Protein 1+ H Negative Urine Ketones Negative Negative Urine Blood Trace H Negative /uL Urine Nitrite Negative Negative Urine Bilirubin Negative Negative Urine Urobilinogen Normal Negative mg/dL Urine Leukocyte Esterase Trace Negative /uL Urine RBC 1 0 - 4 /hpf Urine Microscopic WBC 8 H 0-5 /HPF Urine Squamous Epithelial Cells Few <5 /hpf Urine Bacteria None seen None Seen /hpf Urine Hyaline Casts Few 0 - 2 /lpf Urine Mucus Few None Seen Urine Glucose Normal Normal mg/dL Troponin I High Sensitivity 70 *H </=34 ng/L Test 04/20/25 17:33 04/20/25 16:26 Range/Units Troponin I High Sensitivity 62 *H 66 *H </=34 ng/L White Blood Count 11.1 H 4.4-10.8 10^3/uL Red Blood Count 4.51 4.0-5.20 10^6/uL Hemoglobin 12.0 L 12.2-16.2 g/dL Hematocrit 35.5 L 36.0-46.0 % Mean Corpuscular Volume 78.8 L 80.0-100.0 fL Mean Corpuscular Hemoglobin 26.6 L 28.0-32.0 pg Mean Corpuscular Hemoglobin Concent 33.8 32.0-36.0 g/dL Red Cell Distribution Width 19.3 H 11.8-14.3 % Platelet Count 258 140-450 10^3/uL Mean Platelet Volume 8.5 6.9-10.8 fL Neutrophils (%) (Auto) 51.6 37.0-80.0 % Lymphocytes (%) (Auto) 38.0 10.0-50.0 % Monocytes (%) (Auto) 7.3 0.0-12.0 % Eosinophils (%) (Auto) 2.6 0.0-7.0 % Basophils (%) (Auto) 0.5 0.0-2.0 % Neutrophils # (Auto) 5.7 1.6-8.6 10 ^3/uL Lymphocytes # (Auto) 4.2 0.4-5.4 10 ^3/uL Monocytes # (Auto) 0.8 0-1.3 10 ^3/uL Eosinophils # (Auto) 0.3 0-0.8 10 ^3/uL Basophils # (Auto) 0.1 0-0.2 10 ^3/uL Nucleated Red Blood Cells 0.0 % D-Dimer, Quantitative 0.43 0.0-0.49 mg/L FEU Sodium Level 137 136-145 mmol/L Potassium Level 3.6 3.5-5.1 mmol/L Chloride Level 104 98-107 mmol/L Carbon Dioxide Level 22 20-31 mmol/L Anion Gap 11 5-15 Blood Urea Nitrogen 24 H 9-23 mg/dL Creatinine 1.73 H 0.550-1.02 mg/dL Glomerular Filtration Rate Calc 33 >90 mL/min BUN/Creatinine Ratio 13.9 10.0-20.0 Serum Glucose 147 H 74-106 mg/dL Calcium Level 10.2 8.7-10.4 mg/dL Assessment Acute kidney injury hemodynamic mediated etiology in the setting hypotension Chest pain Diabetes Likely underlying diabetic nephropathy History of CABG Hypokalemia Mild hydronephrosis Recommendations K replace She has received IV fluids on admission We will monitor renal function Strict Is&Os We will follow renal function Plan discussed with: Patient MONCHO FISH MD Apr 21, 2025 21:48
[2025-04-21] MEDS ORDERED: GABAPENTIN 100 MG CAP PO SCH (22:00)
[2025-04-21] MEDS: POTASSIUM CHL 20 Meq TABLET PO ONE (22:47)
[2025-04-21] MEDS: INSULIN LANTUS (GLARGINE) 1 /0.01ml (100units/ml) SC SCH (22:52)
[2025-04-22 01:00] VITALS: BP 122/55; PULSE 52; RESP 18; TEMP 97.8; O2SAT 99
[2025-04-22 05:00] VITALS: BP 137/43; PULSE 51; RESP 18; TEMP 98.4; O2SAT 100
[2025-04-22] MEDS: NITROGLYCERIN 0.4 MG SL TAB SL PRN (06:27)
[2025-04-22 06:30] VITALS: BP 105/39; PULSE 52
[2025-04-22 08:00] VITALS: PULSE 63; PULSE 74; RESP 19; O2SAT 97
--- NOTE | 2025-04-22 08:43 | DVHPN2 ---
Progress Note Date Seen: Apr 22, 2025 Medical Necessity Reason Pt with a Central, PICC or Fol: No Subjective Patient reports: No new complaints Review of Systems: HEENT:Normal, CVS:Abnormal, RESPIRATORY:Normal, GI:Normal, :Normal, MSK:Normal, NEURO:Normal Objective vital signs Vital Sign Date Time Temp Pulse Resp B/P (MAP) Pulse Ox O2 Delivery O2 Flow Rate FiO2 04/22/25 06:30 52 105/39 (61) 04/22/25 05:00 98.4 18 100 98.4 04/21/25 20:00 Room Air* 0 21 Total Intake and Output 04/21/25 04/21/25 04/22/25 15:00 23:00 07:00 Intake Total 750 ml 700 ml Balance 750 ml 700 ml medications Current Medications Medications Dose Ordered Sig/Jarett Route Start Time Stop Time Status Last Admin Dose Admin Ceftriaxone Sodium 50 ml @ 100 mls/hr DAILY@09 IV 04/20/25 19:18 04/21/25 08:47 100 MLS/HR Azithromycin 250 ml @ 125 mls/hr DAILY@2100 IV 04/20/25 21:00 04/20/25 21:00 125 MLS/HR Sodium Chloride 10 ml Q8HR IV 04/20/25 22:00 04/21/25 11:46 10 ML Acetaminophen 650 mg Q6HP PRN PO 04/20/25 19:15 Acetaminophen/ Hydrocodone Bitart 1 tab Q4HP PRN PO 04/20/25 19:15 Aspirin 81 mg DAILY PO 04/21/25 10:00 04/21/25 08:47 81 MG Digoxin 0.125 mg DAILY PO 04/21/25 10:00 Empaglifozin 10 mg DAILY PO 04/21/25 10:00 04/21/25 08:47 10 MG Midodrine 10 mg TID PO 04/20/25 22:00 04/22/25 06:32 10 MG Patient Own Medication 1 tab DAILY PO 04/21/25 10:00 Metoprolol Succinate 25 mg DAILY PO 04/21/25 10:00 Diagnostic Test (Pha) 1 strip ACHS 04/20/25 22:00 04/22/25 06:39 1 STRIP Dextrose 50 ml UD PRN IV 04/20/25 19:45 Gabapentin 300 mg BID PO 04/21/25 22:00 UNV Gabapentin 300 mg DAILY PO 04/22/25 10:00 Insulin Glargine 20 units HS SC 04/21/25 22:00 04/21/25 22:52 20 UNITS Insulin Human Lispro 10 units AC SC 04/21/25 17:00 04/22/25 06:37 10 UNITS Insulin Human Lispro AC SC 04/21/25 17:00 04/22/25 06:38 3 UNITS Nitroglycerin 0.4 mg Q5MINP PRN SL 04/22/25 06:15 04/22/25 06:27 0.4 MG Examination: GENERAL:Normal, HEENT:Normal, NECK:Normal, LUNGS:Normal, CVS:Abnormal, ABDOMEN:Normal, MSK:Normal, SKIN:Normal, NEURO:Normal, :Normal laboratory and microbiology Laboratory Tests 04/21/25 06:16 Test 04/21/25 06:16 Range/Units Serum Glucose 143 H 74-106 mg/dL Microbiology Date/Time Source Procedure Growth Status 04/20/25 20:41 Blood Blood Culture - Preliminary NO GROWTH AFTER 24 HOURS OF INCUBATION. Resulted Problem List/Assessment/Plan Problem List/Assessment/Plan Acute kidney injury hemodynamic mediated etiology in the setting hypotension Chest pain Congestive heart failure reduced ejection fraction EF 20 Diabetes Likely underlying diabetic nephropathy History of CABG Hypokalemia Mild hydronephrosis Recommendations Potassium has been replaced EF is 20 defer Congestive heart failure management to Cardiology-including diuretics--okay to resume diuretics from Nephrology standpoint She does not need any IV fluids for now Labs today pending Plan discussed with: Patient MONCHO FISH MD Apr 22, 2025 08:43
[2025-04-22 09:01] VITALS: BP 149/75; PULSE 74; RESP 19; TEMP 98.4; O2SAT 97
[2025-04-22] MEDS: GABAPENTIN 300 MG CAP PO SCH (09:16)
[2025-04-22] MEDS: DIGOXIN 0.125 MG TAB PO SCH (12:00)
[2025-04-22 13:00] VITALS: BP 104/32; PULSE 76; RESP 17; TEMP 98.1; O2SAT 98
[2025-04-22] MEDS ORDERED: TIOT17SP IN (13:52)
[2025-04-22] MEDS ORDERED: ALBU108A5 IN (13:52)
--- NOTE | 2025-04-22 13:54 | DVHDS2 ---
Discharge Summary Date of Admission Apr 20, 2025 at 19:12 Date of Discharge: Apr 22, 2025 Labs/Diagnostic Data: Laboratory Results Test 04/22/25 10:49 04/21/25 13:45 04/21/25 06:16 04/20/25 22:00 POC Glucose 206 mg/dl (70-106) Influenza Type A Antigen Negative (Negative) Influenza Type B Antigen Negative (Negative) SARS-CoV-2 Antigen (Rapid) Negative (NEGATIVE) White Blood Count 7.9 10^3/uL (4.4-10.8) Red Blood Count 3.82 10^6/uL (4.0-5.20) Hemoglobin 10.2 g/dL (12.2-16.2) Hematocrit 30.2 % (36.0-46.0) Mean Corpuscular Volume 79.0 fL (80.0-100.0) Mean Corpuscular Hemoglobin 26.8 pg (28.0-32.0) Mean Corpuscular Hemoglobin Concent 33.9 g/dL (32.0-36.0) Red Cell Distribution Width 18.8 % (11.8-14.3) Platelet Count 220 10^3/uL (140-450) Mean Platelet Volume 8.7 fL (6.9-10.8) Neutrophils (%) (Auto) 44.1 % (37.0-80.0) Lymphocytes (%) (Auto) 42.6 % (10.0-50.0) Monocytes (%) (Auto) 9.5 % (0.0-12.0) Eosinophils (%) (Auto) 3.2 % (0.0-7.0) Basophils (%) (Auto) 0.6 % (0.0-2.0) Neutrophils # (Auto) 3.5 10 ^3/uL (1.6-8.6) Lymphocytes # (Auto) 3.4 10 ^3/uL (0.4-5.4) Monocytes # (Auto) 0.7 10 ^3/uL (0-1.3) Eosinophils # (Auto) 0.3 10 ^3/uL (0-0.8) Basophils # (Auto) 0.1 10 ^3/uL (0-0.2) Nucleated Red Blood Cells 0.1 % Sodium Level 141 mmol/L (136-145) Potassium Level 2.9 mmol/L (3.5-5.1) Chloride Level 112 mmol/L (98-107) Carbon Dioxide Level 22 mmol/L (20-31) Anion Gap 7 (5-15) Blood Urea Nitrogen 21 mg/dL (9-23) Creatinine 1.38 mg/dL (0.550-1.02) Glomerular Filtration Rate Calc 44 mL/min (>90) BUN/Creatinine Ratio 15.2 (10.0-20.0) Serum Glucose 143 mg/dL (74-106) Calcium Level 8.6 mg/dL (8.7-10.4) Total Bilirubin 0.3 mg/dL (0.2-1.0) Aspartate Amino Transferase (AST) 19 U/L (13-40) Alanine Aminotransferase (ALT) 18 U/L (7-40) Alkaline Phosphatase 74 U/L (46-116) Troponin I High Sensitivity 83 ng/L (</=34) B-Type Natriuretic Peptide 265.06 pg/mL (0-100) Total Protein 6.1 g/dL (5.7-8.2) Albumin 3.8 g/dL (3.2-4.8) Digoxin Level 1.06 ng/mL (0.8-2) Urine Color Light-yellow (Yellow) Urine Clarity Turbid (Clear) Urine pH 5.5 (5.0-9.0) Urine Specific [place] 1.013 (1.001-1.035) Urine Protein 1+ (Negative) Urine Ketones Negative (Negative) Urine Blood Trace /uL (Negative) Urine Nitrite Negative (Negative) Urine Bilirubin Negative (Negative) Urine Urobilinogen Normal mg/dL (Negative) Urine Leukocyte Esterase Trace /uL (Negative) Urine RBC 1 /hpf (0 - 4) Urine Microscopic WBC 8 /HPF (0-5) Urine Squamous Epithelial Cells Few /hpf (<5) Urine Bacteria None seen /hpf (None Seen) Urine Hyaline Casts Few /lpf (0 - 2) Urine Mucus Few (None Seen) Urine Glucose Normal mg/dL (Normal) Test 04/20/25 16:26 D-Dimer, Quantitative 0.43 mg/L FEU (0.0-0.49) Other Laboratory Tests 04/21/25 06:16 Brief Hx & Hospital Course: Shanna Francis, a 59-year-old female with heart failure, diabetes, hypertension, and CKD stage 3A, presented with shortness of breath, chest tightness, and diaphoresis after skipping 6 medication doses. She required 2L oxygen initially but improved to 96% on room air. Labs showed hypokalemia (2.9), improving creatinine (1.7?1.3), elevated troponins (60-80), and microcytic anemia. Echocardiogram revealed EF 25% with global hypokinesis. Treatment included resuming home medications (digoxin, aspirin, midodrine, gabapentin, metoprolol, Jardiance), Lasix, oxygen as needed. now on room air, feeling better. K repleted, will recheck. can resume home meds, patent asked for inhaler refill, prescribed albuterol. stable to dc Condition at Discharge: Stable Final Diagnosis/Problems List - Heart failure with reduced ejection fraction - Chronic kidney disease, stage 3A - Type 2 diabetes mellitus, insulin-dependent - Hypertension - Coronary artery bypass graft status - Hypokalemia - Microcytic anemia - Hepatic steatosis - Shortness of breath - Chest pain Discharge Disposition: Home Discharge Instruct/Medications Diet: Consistent carbohydrate, Cardiac 2g Na,low cholest, Renal Activity: No Restrictions, As Tolerated Follow Up/Referral: dc clinic Scheduled Aspirin (Aspir-Low), 81 MG PO DAILY, (Reported) Atorvastatin Calcium (Atorvastatin Calcium), 1 TAB PO DAILY, (Reported) Digoxin (Digoxin), 125 MCG PO DAILY, (Reported) Gabapentin (Gabapentin), 2 CAP PO BID, (Reported) Metformin Hydrochloride (Metformin Hcl), 500 MG PO IBID, (Reported) Metoprolol Succinate (Metoprolol Succinate Er), 1 TAB PO DAILY Midodrine Hcl (Midodrine Hcl), 10 MG PO TID Nitrofurantoin (Nitrofurantoin), 1 CAP PO BID Tiotropium Kim Monohydrate (Spiriva Respimat), 2.5 MCG IN DAILY Scheduled PRN Albuterol Sulfate (Albuterol Sulfate Hfa), 108 MCG IN Q15MP PRN Miscellaneous Medications Empagliflozin (Jardiance), 10 MG PO, (Reported) Discharge Statement: "Patient was advised to return to the ER or call 911 if any headaches, dizziness, shortness of breath, chest pain, abdominal pain, bleeding, fevers, or worsening of medical condition. Patient was counseled about treatment plan, medications, possible side effects, patientverbalized understanding. All questions were answered to the best of my ability. This discharge took greater then 30 minutes in planning, reviewing documentation, counseling the patient, and discussing with other team members." ASSESSMENT ASSESSMENT Assessment - Heart failure with reduced ejection fraction - Chronic kidney disease, stage 3A - Type 2 diabetes mellitus, insulin-dependent - Hypertension - Coronary artery bypass graft status - Hypokalemia - Microcytic anemia - Hepatic steatosis - Shortness of breath - Chest pain Date of Service: Apr 22, 2025 Billing Provider: GERI ROMERO MD Common Visit Codes: [id number] INP/OBS CARE(HIGH) GERI ROMERO MD Apr 22, 2025 13:54
[2025-04-22 14:47] LABS: Hematocrit 35.2 % (36.0-46.0); Hemoglobin 11.4 g/dL (12.2-16.2); Mean Corpuscular Hemoglobin 26.5 pg (28.0-32.0); Mean Corpuscular Volume 82.3 fL (80.0-100.0); Nucleated Red Blood Cells % 0.2 %
[2025-04-22 14:55] LABS: Alanine Aminotransferase 17 U/L (7-40); Albumin 4.4 g/dL (3.2-4.8); Alkaline Phosphatase 80 U/L (46-116); Anion Gap 9 (5-15); BUN/Creatinine Ratio 6.1 (10.0-20.0); Blood Urea Nitrogen 8 mg/dL (9-23); Calcium 9.5 mg/dL (8.7-10.4); Carbon Dioxide 20 mmol/L (20-31); Chloride 112 mmol/L (98-107); Glucose 332 mg/dL (74-106); Potassium 3.7 mmol/L (3.5-5.1); Sodium 141 mmol/L (136-145); Total Protein 7.6 g/dL (5.7-8.2)
[2025-04-22 14:56] LABS: Bilirubin, Total 0.3 mg/dL (0.2-1.0)
--- NOTE | 2025-04-26 14:30 | ECG ---
[facility] Test Date: 2025-04-22 Test Time: 05:54:52 Pat Name: HIMANSHU SCHROEDER Department: Room: [address] [place] [address] Gender: F [employer]: : [id number] Requested By: GERI ROMERO Order Number: [id number] Reading MD: Karthik Salgado Measurements Intervals Alexis Rate: 46 P: 73 OK: 170 QRS: -19 QRSD: 128 T: 44 QT: 525 QTc: 460 Interpretive Statements Sinus bradycardia Probable left atrial enlargement LVH with secondary repolarization abnormality Probable anterior infarct, age indeterminate Electronically Signed On 04-26-2025 14:30:37 PDT by Karthik Salgado Please click the below link to view image of tracing.
== END 2025-04-22 17:05 | disposition home or self-care (01) | DRG 469 ==
LOC: ER 16:15 → EDBD 16:15 → OVERFLOW 19:12 → TELE-EAST 22:16
PROVIDERS: ADMIT Internal Medicine; ATTEND Internal Medicine
DX: N17.0 Acute kidney failure with tubular necrosis (principal); I21.A1 Myocardial infarction type 2; I50.23 Acute on chronic systolic (congestive) heart failure; N13.30 Unspecified hydronephrosis; D50.9 Iron deficiency anemia, unspecified; E11.22 Type 2 diabetes mellitus with diabetic chronic kidney disease; D72.829 Elevated white blood cell count, unspecified; E87.6 Hypokalemia; I13.0 Hypertensive heart and chronic kidney disease with heart failure and stage 1 through stage 4 chronic kidney disease, or unspecified chronic kidney disease; I25.10 Atherosclerotic heart disease of native coronary artery without angina pectoris; K76.0 Fatty (change of) liver, not elsewhere classified; N18.31 Chronic kidney disease, stage 3a; Z95.1 Presence of aortocoronary bypass graft; Z79.82 Long term (current) use of aspirin; Z79.84 Long term (current) use of oral hypoglycemic drugs; Z79.899 Other long term (current) drug therapy; Z83.3 Family history of diabetes mellitus; Z79.4 Long term (current) use of insulin
CPT/HCPCS: 36415; 71045; 76775; 80048; 80053; 80162; 81001; 82962; 83880; 84484; 85025; 85379; 87040; 87426; 87804; 93005; 93306; 96360; 96361; 99291; G0378; J1815